=== PATIENT | female | born 1940 | race Caucasian/White ===

== ENCOUNTER → 2017-07-15 15:35 | Outpatient (CLI) | payer OTHER, SELFPAY ==
[2017-07-15 16:50] LABS: Basophils Percent Auto 0.5 % (0-2); Eosinophils Percent Auto 5.5 % (2-4); Hematocrit 29.1 % (36-46); Hemoglobin 9.6 g/dL (12.0-16.0); Lymphocytes Percent Auto 30.1 % (25-40); Mean Corpuscular Hemoglobin 27.9 PG (26-34); Mean Corpuscular Volume 84.4 fL (80-100); Monocytes Percent Auto 6.6 % (3-14); Neutrophils Absolute Auto 3300 /uL (3000-5900); Neutrophils Percent Auto 57.3 % (50-75); Platelet Count 403 X10^3/uL (150-400); Red Blood Cell Count 3.45 X10^6/uL (4.0-5.2); Red Cell Distribution Width 16.5 % (11.6-14.8); White Blood Cell Count 5.7 X10^3/uL (4.5-11.0)
[2017-07-15 16:53] LABS: Add Manual Diff / Slide Review SLIDE REVIEW
[2017-07-15 17:24] LABS: Poikilocytosis 1+; Schistocytes 1+
== END ==
PROVIDERS: PCP Family Medicine; Visit Provider Family Medicine
DX: K22.70 Barrett's esophagus without dysplasia (principal); K29.70 Gastritis, unspecified, without bleeding; D50.9 Iron deficiency anemia, unspecified
CPT/HCPCS: 36415; 85025

== ENCOUNTER 2017-07-28 07:01 | Day surgery (SDC) | payer OTHER, SELFPAY ==
[2017-07-28] VITALS (9 sets, daily range): BP systolic 100–122; BP diastolic 56–70; PULSE 58–67; RESP 15–16; TEMP 36.1–37; O2SAT 96–99; BMI 29.0
--- NOTE | 2017-07-28 | PATH_ITS ---
[facility] Accession Number: [id number] . 01 Material submitted: . PART A: ANTRUM PART B: GE JUNCTION . 01 Clinical history: . A: H. PYLORI . 02 Diagnosis: A. Designated Antrum, Biopsies: Gastric oxyntic mucosa with no diagnostic abnormality. No evidence of Helicobacter organisms on H/E stain. Negative for intestinal metaplasia, dysplasia or malignancy. . B. Gastroesophageal Junction, Biopsy: Squamocolumnar junctional mucosa with specialized intestinal metaplasia; please see comment. Negative for dysplasia or malignancy. MRV/07/29/2017 . 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 . 02 Electronically signed: . Rhett Givens MD, PhD, Pathologist NPI- [id number] . 01 Gross description: . Received are two formalin-filled containers, both labeled with the patient's name: . A. In a container labeled antrum biopsy, the specimen consists of a 0.2 cm portion of tissue, entirely submitted in cassette A. B. In a container labeled GE junction, the specimen consists of four less than 0.1 cm to 0.2 cm portions of tissue, entirely submitted in cassette B. ([id number]) /FRR . 02 Pathologist provided ICD-10: K22.70 . 02 CPT . 222560, 816740 Performed at: 01 [facility] [address] [facility], [place], [place] [id number] MD Salo Up MD Phone: [phone] Performed at: 02 [facility] [address] [place] [id number] MD Srikanth Nunez MD Phone: [phone]
--- NOTE | 2017-07-28 08:39 | PM.PREOP ---
Pre-operative Note Interval Note Pre-op Check: History & Physical Reviewed by Physician
[2017-07-28] MEDS: TETRACAINE/BENZOCAINE/BUTAMBEN (CETACAINE) BOTTLE 1 SPRAY TOP (08:45)
[2017-07-28] MEDS: LIDOCAINE 4% SOLN 50 ML 20 ML TOP (08:46)
--- NOTE | 2017-07-28 09:00 | PM.OP.1 ---
Operative Date/Time/Diagnoses - Date of procedure: 07/28/17 Time of procedure: 09:00 Pre-op diagnosis: Coppola's esophagus Chronic dysphagia Post-op diagnosis: same Procedure & Clinicians Procedure: Esophageal gastroduodenoscopy biopsy Same procedure as scheduled: Yes Indications: For history of Coppola's esophagus with chronic dysphagia. Surgeon: Sangeetha Estrada Click Yes if Unassisted: Yes Anesthesia Type: Sedation (Versed 4 mg and fentanyl 100 mcg) Operative Notes Findings: 1. Normal duodenum 2. Antral gastritis most pronounced in the pyloric channel 3. GE junction at 35 cm from the incisors with a 5 cm hiatal hernia 4. Ragged Z-line with islands of tissue consistent with Coppola's esophagus the Closure Type: not applicable Specimen(s): other (1. Cold forceps biopsy the antrum trauma 2. Cold forceps biopsies of the GE junction) Estimated Blood Loss (mL): 2 Procedure in detail: After obtaining informed consent, the patient was brought to the GI suite and placed in the left lateral decubitus position on the examination table. After placement of appropriate monitors, the patient was given incremental doses of Versed and Fentanyl until an appropriate level of sedation was achieved. A time out was held per SCOAP protocol. A bite block was gently placed between the patient's teeth. The endoscope was lubricated and then passed into the patient's posterior oropharynx. The esophagus was cannulated under direct vision and the scope was passed to the second portion of the duodenum without difficulty. The scope was then withdrawn with careful examination of all areas of the upper GI tract and mucosa. In the stomach, the instrument was retroflexed and the GE junction examined. The scope was straightened and the procedure continued with examination of the remainder of the upper GI tract. Findings are noted above. Air was aspirated from the stomach and the endoscope gently removed from the esophagus. The patient was allowed to awaken from sedation without difficulty and taken to the post-anesthesia care unit in good condition. Total sedation time 13 min Complications: none Condition: stable Disposition: PACU Plan for aftercare: 1. Discharge to home 2. We will contact you with results and recommendations as well as results of the pH probe and manometry study
[2017-07-28] MEDS: fentaNYL 250 MCG/5 ML INJ IV (09:03)
[2017-07-28] MEDS: MIDAZOLAM 5 MG/5 ML VIAL IV (09:03)
== END 2017-07-28 10:02 ==
LOC: ENDO 07:02
PROVIDERS: Family Provider Family Medicine; PCP Family Medicine; Visit Provider Surgery
PROC: 0DJ08ZZ Inspection of Upper Intestinal Tract, Via Natural or Artificial Opening Endoscopic (ICD-10-PCS; CPT 43235; principal; 2017-07-28 07:45)
DX: K22.719 Barrett's esophagus with dysplasia, unspecified (principal); D64.9 Anemia, unspecified; K29.70 Gastritis, unspecified, without bleeding; K44.9 Diaphragmatic hernia without obstruction or gangrene; I10 Essential (primary) hypertension; J45.909 Unspecified asthma, uncomplicated
CPT/HCPCS: 43239; 99152; J2250; J3010

== ENCOUNTER → 2018-04-21 14:40 | Outpatient (CLI) | payer OTHER, SELFPAY ==
--- NOTE | 2018-04-21 | DI.MG.S_ITS ---
UNILATERAL RIGHT DIGITAL SCREENING MAMMOGRAM 3D/2D WITH CAD POST MASTECTOMY: 04/21/2018 CLINICAL: Routine screening. Personal history of breast cancer. Family history of breast cancer. Comparison is made to exams dated: 03/16/2017 mammogram, 11/21/2014 mammogram, and 10/08/2013 mammogram - [facility]. The tissue of right breast is heterogeneously dense. This may lower the sensitivity of mammography. Current study was also evaluated with a Computer Aided Detection (CAD) system. There are benign vascular calcifications and calcifications in the right breast. No significant masses, calcifications, or other findings are seen in the breast. There has been no significant interval change. IMPRESSION: There is no mammographic evidence of malignancy. A 1 year screening mammogram is recommended. This exam was interpreted at Station ID: [id number]. NOTE: For mammograms, a report in lay terms will be sent to the patient. Approximately 15% of breast malignancies will not be visualized mammographically. In the management of a palpable breast mass, a negative mammogram must not discourage biopsy of a clinically suspicious lesion. Electronically Signed By: Braulio montez/florentin:04/21/2018 16:14:35 letter sent: Normal Exam ACR BI-RADS Category 2: Benign Finding(s) 3342F
== END ==
PROVIDERS: Family Provider Family Medicine; PCP Family Medicine; Visit Provider Family Medicine
DX: Z12.31 Encounter for screening mammogram for malignant neoplasm of breast (principal); Z85.3 Personal history of malignant neoplasm of breast; Z80.3 Family history of malignant neoplasm of breast
CPT/HCPCS: 77063; 77067

== ENCOUNTER → 2018-05-06 09:43 | Outpatient (CLI) | payer OTHER, SELFPAY ==
[2018-05-06 10:06] LABS: Add Manual Diff / Slide Review NO; Basophils Absolute Auto 100 /uL (0-100); Basophils Percent Auto 1.2 % (0-2); Eosinophils Absolute Auto 200 /uL (0-450); Eosinophils Percent Auto 3.5 % (2-4); Hematocrit 23.6 % (36-46); Hemoglobin 7.2 g/dL (12.0-16.0); Lymphocytes Absolute Auto 1200 /uL (1100-4500); Lymphocytes Percent Auto 18.1 % (25-40); Mean Corpuscular HGB Conc 30.3 % (30-36); Mean Corpuscular Hemoglobin 23.2 PG (26-34); Mean Corpuscular Volume 76.7 fL (80-100); Monocytes Absolute Auto 400 /uL (0-900); Monocytes Percent Auto 6.8 % (3-14); Neutrophils Absolute Auto 4500 /uL (1500-7000); Neutrophils Percent Auto 70.4 % (50-75); Platelet Count 400 X10^3/uL (150-400); Red Blood Cell Count 3.08 X10^6/uL (4.0-5.2); Red Cell Distribution Width 16.9 % (11.6-14.8); White Blood Cell Count 6.4 X10^3/uL (4.5-11.0)
[2018-05-06 10:19] LABS: Alanine Aminotransferase 24 IU/L (9-52); Albumin 3.9 g/dL (3.5-5.0); Albumin Globulin Ratio 1.2 (1.0-2.8); Alkaline Phosphatase 59 U/L (38-126); Aspartate Aminotransferase 18 IU/L (14-36); BUN Creatinine Ratio 12.5 (6-22); Bilirubin Total 0.3 mg/dL (0.2-1.3); Blood Urea Nitrogen 10 mg/dL (7-17); Calcium 8.6 mg/dL (8.4-10.2); Carbon Dioxide 25 mmol/L (22-32); Chloride 100 mmol/L (98-107); Cholesterol 146 mg/dL (140-199); Estimated Glomerular Filt Rate > 60.0 mL/min (>60); Globulin 3.2 g/dL (1.7-4.1); Glucose 88 mg/dL (80-110); HDL Cholesterol 40 mg/dL (40-60); HEMOLYSIS < 15 (0-50); LDL Cholesterol Calculated 85 mg/dL (<100); Potassium 4.3 mmol/L (3.4-5.1); Sodium 133 mmol/L (137-145); Total Protein 7.1 g/dL (6.3-8.2); Triglycerides 103 mg/dL (35-150)
[2018-05-06 10:34] LABS: Vitamin D 25 Hydroxy (D3) < 12.8 ng/mL (30.0-100.0)
[2018-05-06 10:52] LABS: Ferritin 10.3 ng/mL (11.1-264)
== END ==
PROVIDERS: PCP Family Medicine; Visit Provider Family Medicine
DX: D50.9 Iron deficiency anemia, unspecified (principal); I10 Essential (primary) hypertension; M85.80 Other specified disorders of bone density and structure, unspecified site
CPT/HCPCS: 36415; 80053; 80061; 82306; 82728; 85025

== ENCOUNTER → 2019-04-05 11:06 | Outpatient (CLI) | payer OTHER, SELFPAY ==
[2019-04-05 11:52] LABS: Add Manual Diff / Slide Review NO; Basophils Absolute Auto 200 /uL (0-100); Basophils Percent Auto 3.2 % (0-2); Eosinophils Absolute Auto 400 /uL (0-450); Eosinophils Percent Auto 7.2 % (2-4); Lymphocytes Absolute Auto 700 /uL (1100-4500); Lymphocytes Percent Auto 13.1 % (25-40); Mean Corpuscular HGB Conc 28.1 % (30-36); Mean Corpuscular Hemoglobin 19.1 PG (26-34); Mean Corpuscular Volume 67.8 fL (80-100); Monocytes Absolute Auto 500 /uL (0-900); Monocytes Percent Auto 8.5 % (3-14); Neutrophils Absolute Auto 3900 /uL (1500-7000); Platelet Count 408 X10^3/uL (150-400); Red Blood Cell Count 3.04 X10^6/uL (4.0-5.2); Red Cell Distribution Width 17.6 % (11.6-14.8); White Blood Cell Count 5.7 X10^3/uL (4.5-11.0)
[2019-04-05 12:05] LABS: Hematocrit 20.6 % (36-46); Hemoglobin 5.8 g/dL (12.0-16.0)
[2019-04-05 12:30] LABS: HEMOLYSIS < 15 (0-50); Iron 25 ug/dL (37-170)
[2019-04-05 12:31] LABS: Anisocytosis 2+; Hypochromasia 3+; Poikilocytosis 1+
[2019-04-05 12:35] LABS: Ferritin 6.8 ng/mL (11.1-264)
[2019-04-05 12:42] LABS: Percent Iron Saturation 6 % (15-50); Total Iron Binding Capacity 452 ug/dL (265-497); Transferrin 356 mg/dL (206-381)
[2019-04-05 12:49] LABS: Vitamin B12 419 pg/mL (239-931)
== END ==
PROVIDERS: PCP Family Medicine; Referring Provider Family Medicine; Visit Provider Family Medicine
DX: D50.9 Iron deficiency anemia, unspecified (principal)
CPT/HCPCS: 36415; 82607; 82728; 83540; 83550; 85025

== ENCOUNTER → 2019-04-19 16:11 | Outpatient (CLI) | payer OTHER, SELFPAY ==
[2019-04-19 17:08] LABS: Add Manual Diff / Slide Review NO; Basophils Absolute Auto 100 /uL (0-100); Basophils Percent Auto 1.5 % (0-2); Eosinophils Absolute Auto 400 /uL (0-450); Eosinophils Percent Auto 6.8 % (2-4); Hematocrit 23.5 % (36-46); Lymphocytes Absolute Auto 1200 /uL (1100-4500); Lymphocytes Percent Auto 22.7 % (25-40); Mean Corpuscular HGB Conc 29.1 % (30-36); Mean Corpuscular Hemoglobin 20.6 PG (26-34); Mean Corpuscular Volume 70.9 fL (80-100); Monocytes Absolute Auto 400 /uL (0-900); Monocytes Percent Auto 7.5 % (3-14); Neutrophils Absolute Auto 3200 /uL (1500-7000); Neutrophils Percent Auto 61.5 % (50-75); Platelet Count 464 X10^3/uL (150-400); Red Blood Cell Count 3.32 X10^6/uL (4.0-5.2); Red Cell Distribution Width 21.7 % (11.6-14.8); White Blood Cell Count 5.2 X10^3/uL (4.5-11.0)
[2019-04-19 17:31] LABS: Hemoglobin 6.8 g/dL (12.0-16.0)
[2019-04-19 18:54] LABS: Hypochromasia 3+; Poikilocytosis 1+
[2019-04-19 18:55] LABS: Acanthocytes 1+; Anisocytosis 2+
== END ==
PROVIDERS: PCP Family Medicine; Referring Provider Family Medicine; Visit Provider Family Medicine
DX: D50.9 Iron deficiency anemia, unspecified (principal)
CPT/HCPCS: 36415; 85025

== ENCOUNTER → 2019-05-02 09:49 | Outpatient (RCR) | payer OTHER, SELFPAY ==
[2019-04-06] MEDS: IRON SUCROSE 500 MG in SODIUM CHLORIDE 0.9% 100 ML 35.714 ML IV (13:25)
[2019-04-06 13:26] VITALS: BP 135/60; PULSE 69; RESP 16; TEMP 36.6
[2019-04-06 14:18] VITALS: BP 117/52; PULSE 74; RESP 16; TEMP 36.8; O2SAT 100
--- NOTE | 2019-04-06 16:37 | PC.NURSE ---
New IV to right forearm inserted. Left AC IV removed by [facility]. Scant swelling and quarter sized dark bruise present at LAC site. Pt aware to notify staff if new site becomes sore/painful/or puffy. Verbalizes understanding and using call light appropriately.
[2019-05-02 10:11] LABS: Add Manual Diff / Slide Review NO; Basophils Absolute Auto 100 /uL (0-100); Basophils Percent Auto 2.2 % (0-2); Eosinophils Absolute Auto 200 /uL (0-450); Eosinophils Percent Auto 4.5 % (2-4); Hematocrit 24.3 % (36-46); Lymphocytes Absolute Auto 1000 /uL (1100-4500); Lymphocytes Percent Auto 22.3 % (25-40); Mean Corpuscular HGB Conc 28.8 % (30-36); Mean Corpuscular Hemoglobin 20.6 PG (26-34); Mean Corpuscular Volume 71.7 fL (80-100); Monocytes Absolute Auto 300 /uL (0-900); Monocytes Percent Auto 7.9 % (3-14); Neutrophils Absolute Auto 2800 /uL (1500-7000); Neutrophils Percent Auto 63.1 % (50-75); Platelet Count 468 X10^3/uL (150-400); Red Blood Cell Count 3.39 X10^6/uL (4.0-5.2); Red Cell Distribution Width 20.8 % (11.6-14.8); White Blood Cell Count 4.4 X10^3/uL (4.5-11.0)
[2019-05-02 10:49] LABS: Anisocytosis 2+
[2019-05-02 10:50] LABS: Hypochromasia 3+; Poikilocytosis 1+
== END ==
LOC: INF 04-06 11:20
PROVIDERS: PCP Family Medicine; Referring Provider Family Medicine; Visit Provider Family Medicine
DX: D50.9 Iron deficiency anemia, unspecified (principal)
CPT/HCPCS: 36415; 85025; 96365; 96366; J1756

== ENCOUNTER → 2019-05-03 13:30 | Outpatient (CLI) | payer OTHER, SELFPAY ==
[2019-05-03 17:18] LABS: Occult Blood 1 Positive (Negative); Occult Blood 2 Positive (Negative)
[2019-05-03 17:19] LABS: Occult Blood 3 Positive (Negative)
== END ==
PROVIDERS: PCP Family Medicine; Referring Provider Family Medicine; Visit Provider Family Medicine
DX: D50.9 Iron deficiency anemia, unspecified (principal)
CPT/HCPCS: 82270

== ENCOUNTER → 2019-05-08 11:22 | Outpatient (CLI) | payer OTHER, SELFPAY ==
[2019-05-08 11:50] LABS: Add Manual Diff / Slide Review NO; Basophils Absolute Auto 100 /uL (0-100); Basophils Percent Auto 1.4 % (0-2); Eosinophils Absolute Auto 300 /uL (0-450); Eosinophils Percent Auto 5.2 % (2-4); Hematocrit 25.6 % (36-46); Hemoglobin 7.4 g/dL (12.0-16.0); Lymphocytes Absolute Auto 1100 /uL (1100-4500); Mean Corpuscular Hemoglobin 21.3 PG (26-34); Mean Corpuscular Volume 73.6 fL (80-100); Monocytes Absolute Auto 300 /uL (0-900); Monocytes Percent Auto 6.1 % (3-14); Neutrophils Absolute Auto 3900 /uL (1500-7000); Neutrophils Percent Auto 68.3 % (50-75); Platelet Count 430 X10^3/uL (150-400); Red Blood Cell Count 3.48 X10^6/uL (4.0-5.2); Red Cell Distribution Width 21.6 % (11.6-14.8); White Blood Cell Count 5.7 X10^3/uL (4.5-11.0)
[2019-05-08 12:03] LABS: Anisocytosis 2+; Poikilocytosis 1+
== END ==
PROVIDERS: PCP Family Medicine; Referring Provider Surgery; Visit Provider Surgery
DX: D50.9 Iron deficiency anemia, unspecified (principal); R63.4 Abnormal weight loss; K22.70 Barrett's esophagus without dysplasia; K29.70 Gastritis, unspecified, without bleeding; D64.9 Anemia, unspecified; Z80.0 Family history of malignant neoplasm of digestive organs
CPT/HCPCS: 36415; 85025; 99214

== ENCOUNTER 2019-05-11 10:58 | Inpatient (IN) | payer OTHER, SELFPAY ==
[2019-05-11] VITALS (13 sets, daily range): BP systolic 96–150; BP diastolic 44–74; PULSE 60–104; RESP 12–18; TEMP 36.2–37.1; O2SAT 95–100; BMI 25.6
--- NOTE | 2019-05-11 | PATH_ITS ---
[facility] Accession Number: [id number] . 01 Material submitted: . PART A: duodenum bulb - DUODENAL BULB BIOPSY PART B: gastrointestinal site - GASTRIC MUCOSA BIOPSY PART C: gastrointestinal site - GASTRIC POLYP BIOPSY PART D: esophagus - DISTAL ESOPHAGUS BIOPSY PART E: esophagus - MID ESOPHAGUS BIOPSY . 02 Diagnosis: A. Duodenum, Bulb, Biopsy: Duodenal mucosa with no diagnostic abnormality. Negative for active inflammation, features of sprue, dysplasia, or malignancy. . B. Stomach, Biopsy: Antral mucosa with no diagnostic abnormality. No evidence of Helicobacter on H/E stain. Negative for intestinal metaplasia. Negative for dysplasia and malignancy. . C. Stomach, Polyp, Biopsy: Gastric hyperplastic polyp. No evidence of Helicobacter on H/E stain. Negative for intestinal metaplasia. Negative for dysplasia and malignancy. . D. Distal Esophagus, Biopsy: Squamocolumnar junctional mucosa with specialized intestinal metaplasia, consistent with Coppola's esophagus. Negative for dysplasia and malignancy. . E. Mid Esophagus, Biopsy: Columnar mucosa with no diagnostic abnormality. Negative for intestinal metaplasia. Negative for dysplasia and malignancy. . . . . . . [facility] 05/14/2019 1238 Local . 02 Comment: B. An immunohistochemical stain for Helicobacter will be performed, and the results reported as an addendum. . 02 Electronically signed: . Carine Angel MD, Pathologist NPI- [id number] . 01 Gross description: . (A) Received in formalin, labeled duodenal bulb BX, are multiple fragments of cota tissue (0.4 x 0.3 x 0.1 cm in aggregate). Filtered and entirely submitted in cassette A1. (B) Received in formalin, labeled gastric mucosa BX, are multiple fragments of cota tissue (0.5 x 0.3 x 0.1 cm in aggregate). Filtered and entirely submitted in cassette B1. (C) Received in formalin, labeled gastric polyp BX, is a fragment of younger-white tissue (0.1 x 0.1 by less than 0.1 cm). Filtered and entirely submitted in cassette C1. (D) Received in formalin, labeled distal esophagus BX, is a fragment of younger-white tissue (0.2 x 0.2 by less than 0.1 cm). Filtered and entirely submitted in cassette D1. (E) Received in formalin, labeled mid esophagus BX, is a fragment of younger-white tissue (0.3 x 0.2 x 0.1 cm). Filtered and entirely submitted in cassette E1. (JM:[id number]) /MRV 05/13/2019 1911 Local . 02 Pathologist provided ICD-10: D64.9, K22.70 . 02 CPT . 738984, 001491, 888431, 463601, 571283, R13333 Performed at: 01 [facility] [address] [id number] MD Salo Up MD Phone: [phone] Performed at: 02 [facility] [address] [address] [place], [place] [id number] MD Carine Angel MD Phone: [phone]
--- NOTE | 2019-05-11 | DI.CT.S_ITS ---
PROCEDURE: CT CHEST ABD PEL W CON INDICATIONS: colon cancer, active bleeding TECHNIQUE: After the administration of oral and intravenous contrast, 5 mm thick sections acquired from the lung apices to the symphysis. 5 mm coronal and sagittal reformats were performed, with additional 7 mm coronal MIP reformats through the lungs. For radiation dose reduction, the following was used: automated exposure control, adjustment of mA and/or kV according to patient size. COMPARISON: None. FINDINGS: Image quality: Excellent. CHEST: Lungs and pleura: Biapical scarring is seen. Mild to moderate centrilobular emphysema is noted. There is a tiny groundglass opacity nodule in lateral aspect of right upper lobe series 3 image 87. 3 mm soft tissue density nodule in lateral and posterior aspect of right upper lobe series 3 image 104. Tiny one or 2 mm nodular density is also seen in anterior and lateral periphery of right upper lobe series 3 image 104. 2-3 mm sub-solid nodule is noted in lateral aspect of right upper lobe series 3 image 138. 4-5 mm nodular density anterolateral aspect of right lower lobe is seen series 3 image 203. 15 mm nodular density is also seen in anterior aspect of the right lower lobe near right lung base series 3 image 220 and 221. 4-5 mm soft tissue density nodule in left lingular segment near left lung base is seen series 3 image 221. Tiny 2-3 mm nodular density in posterior aspect of left lower lobe is seen series 3 image 228. Scarring/atelectasis in bilateral lung bases are seen. No pleural effusions or pneumothorax. Central and peripheral airways appear patent and normal in caliber. Mediastinum: Heart size is enlarged. No pericardial effusion. No mediastinal or hilar adenopathy by size criteria. Thoracic aorta and central pulmonary arteries are normal in size. Esophagus is normal in caliber. There is a small to moderate-sized hiatal hernia. Chest wall: No axillary or supraclavicular adenopathy by size criteria. Surgical clips are seen in left axilla with suggestion of prior left mastectomy. Thyroid gland is within normal limits. ABDOMEN: Solid organs: Liver is normal in size. 8mm hypodensity is noted in posterior aspect of right hepatic lobe which may represent a small cyst versus hemangioma. No other discrete hepatic lesion is seen. Stones and sludge material are seen in dependent portion of gallbladder lumen. No gross gallbladder wall thickening or pericholecystic fluid. Biliary system is non dilated. Pancreas enhances normally. Spleen is enlarged, no discrete splenic lesion. No adrenal nodules. Kidneys demonstrate normal size and enhancement, without hydronephrosis. Peritoneum and bowel: There is circumferential lobulated wall thickening and narrowing of the lumen involving 5 cm segment of a distal ascending colon near hepatic flexure with mild surrounding mesenteric fat stranding consistent with patient's colonoscopy finding of ascending colon mass. No other area of abnormal bowel wall thickening is seen. No free fluid of free air. Mild sigmoid diverticulosis is seen, no evidence of acute diverticulitis. Nodes and vessels: No retroperitoneal or mesenteric adenopathy by size criteria. Aorta and inferior vena cava are normal in size. Miscellaneous: No ventral hernias. PELVIS: Genitourinary: Bladder wall thickness is normal. Miscellaneous: No inguinal hernias or adenopathy. Subcentimeter lymph nodes are seen in bilateral inguinal region measures up to 8 mm in size. Calcified uterine fibroids are seen. Bones: No suspicious bony lesions. No vertebral body compression fractures. Sclerotic focus involving right posterior aspect of T5 vertebral body is seen most likely represent focal bone island. IMPRESSION: 1. Finding is suggestive of circumferential mass involving 5 cm segment of distal ascending colon near hepatic flexure with narrowing of the lumen and mild adjacent inflammatory changes. No other area of abnormal bowel wall thickening. No free fluid or free air. 2. Numerous tiny solid and part solid pulmonary nodules in bilateral lung orellana as described above, tiny pulmonary metastatic lung nodules cannot be excluded. Followup CT study in 6 month is recommended. 3. Biapical scarring. Bibasilar scarring/atelectasis. Airway is patent. 4. No gross lymphadenopathy is seen in chest, abdomen or pelvis by size criteria. Prior left mastectomy and surgical clips in left axilla. 5. 8mm hypodense area involving posterior segment of right hepatic lobe which could represent benign process such as hepatic cyst or hemangioma. A followup study is recommended. 6. Splenomegaly. No discrete splenic lesion. Cholelithiasis with no CT evidence of acute cholecystitis. Dictated by: Tono Pappas M.D. on 05/11/2019 at 16:30 Approved by: Tono Pappas M.D. on 05/11/2019 at 16:46
[2019-05-11 11:51] LABS: Add Manual Diff / Slide Review NO; Basophils Absolute Auto 100 /uL (0-100); Basophils Percent Auto 2.3 % (0-2); Eosinophils Absolute Auto 200 /uL (0-450); Eosinophils Percent Auto 4.4 % (2-4); Hematocrit 24.7 % (36-46); Hemoglobin 7.4 g/dL (12.0-16.0); Lymphocytes Absolute Auto 1200 /uL (1100-4500); Lymphocytes Percent Auto 26.7 % (25-40); Mean Corpuscular HGB Conc 29.8 % (30-36); Mean Corpuscular Hemoglobin 22.1 PG (26-34); Mean Corpuscular Volume 74.3 fL (80-100); Monocytes Absolute Auto 300 /uL (0-900); Monocytes Percent Auto 6.6 % (3-14); Neutrophils Absolute Auto 2600 /uL (1500-7000); Platelet Count 371 X10^3/uL (150-400); Red Blood Cell Count 3.33 X10^6/uL (4.0-5.2); White Blood Cell Count 4.3 X10^3/uL (4.5-11.0)
[2019-05-11] MEDS: SODIUM CHLORIDE 0.9% 1,000 ML 200 ML IV (11:54)
[2019-05-11 12:26] LABS: Poikilocytosis 1+
[2019-05-11 12:27] LABS: Anisocytosis 3+; Hypochromasia 2+
--- NOTE | 2019-05-11 13:17 | PM.PREOP ---
Pre-operative Note Interval Note History & Physical reviewed/Exam performed by Physician: Yes Changes to H&P: No H&P completed within 30 days and has changed as indicated here:: 1 unit of blood set up. Hgb 7.4 today and on 05/07.
--- NOTE | 2019-05-11 14:43 | PM.OP.ENDO ---
Operative Date/Time/Diagnoses Date of procedure: 05/11/19 Time of procedure: 14:43 Pre-op diagnosis: Anemia, weight loss Post-op diagnosis: other (gastritis, colon cancer) Procedure & Clinicians Study performed: EGD with cold forceps biopsies and diagnostic colonoscopy Same procedure as scheduled: Yes Indications: Anemia, weight loss Surgeon: Radha Gillette Procedure Notes SCOAP/Timeout: Performed Procedure in detail: The patient was brought to the room and placed in supine position. General anesthesia was induced the patient was intubated with an ET tube by Dr. Holguin. She was then turned into left lateral decubitus position with all bony prominences padded. A surgical time-out was performed. A bite block was placed to protect the patient's lips, teeth, and tongue. The gastroscope was then placed through the bite block and over the tongue, and into the esophagus without incident. A tubular view of the esophagus was maintained as the scope was advanced down the esophagus into the stomach. It was advanced through the stomach and through the pylorus into the bulb of the duodenum. It was then flexed and advanced around the C-loop into the 2nd part of the duodenum. No significant findings were seen, other than a little bit of low-grade duodenitis. Some biopsies were taken, and the scope was retracted out into the stomach. Some low-grade gastritis was seen, with a few erosions. Biopsies were taken of the gastric mucosa. In the body of the stomach some gastric polyps were seen. A biopsy was taken of 1 gastric polyp. They all appeared benign consistent with benign gastric polyps associated with PPIs. On retroflexion, I saw that the patient had really no hiatal hernia. The hiatus was snug around the gastroscope. I then straightened the scope and retracted it back into the esophagus. A few tongues of salmon mucosa were seen and extending 2-3 cm up into the esophagus. These were biopsied. These appear consistent with low-grade Coppola's esophagus. I retracted the scope out of the esophagus with a tubular view. About 18 cm there were some gastric inlet patches. I took a biopsy of this area. It appeared benign. The remainder of the esophagus appeared normal. A pull the scope out of the oropharynx and through the bite block. The patient tolerated this portion of procedure well. Attention was then turned to the colonoscopic exam. A rectal exam was performed revealing [no abnormalities]. The colonoscope was then introduced to the rectum and advanced to the cecum in the usual fashion. As I came around the hepatic flexure I found a large, circumferential, ulcerated mass. I believe this was at the cecum, but I could not get past it in order to confirm the ileocecal valve or any other landmarks. It may have been at the hepatic flexure or in the ascending colon. I tattooed the region around the mass in 3 locations right at the mass itself. It was bleeding somewhat, but stopped relatively easily after few seconds. I did not biopsy it because it was an obvious cancer, and I did not want to stir up more bleeding. The scope was then retracted while rotating side to side and examining each mucosal fold. [] At the conclusion of the procedure retroflexion was performed and [small grade 1-2 internal hemorrhoids without stigmata of bleeding were seen]. The scope was then withdrawn from the rectum the procedure was concluded. The patient tolerated the procedure well and was transferred to the PACU in stable condition. Scope withdrawal time: 12 Findings: Coppola's esophagus, gastritis (Mild), polyp (Gastric) and possible cancer (Obvious cancer in the right colon) Specimen(s): other (Biopsies of duodenal bulb, gastric mucosa, gastric polyp, distal esophagus, mid esophagus) Complications: none Impression: Low-grade gastritis and duodenitis, low-grade Coppola's esophagus, advanced colon cancer Post-procedure Recommendations: Other recommendation (I spoke to the patient's primary doctor. I recommended that we admit the patient, transfuse her, tune her up medically, and plan on operating on this once she is medically prepared, and we get a CT scan to evaluate for mets.) Plan for aftercare: Will speak to the patient when she is entirely awake, but I plan to admit her to the acute care unit in proceed as discussed above. Disposition: PACU
[2019-05-11 15:41] LABS: BUN Creatinine Ratio 13.6 (6-22); Blood Urea Nitrogen 11 mg/dL (7-17); Calcium 8.6 mg/dL (8.4-10.2); Carbon Dioxide 23 mmol/L (22-32); Chloride 105 mmol/L (98-107); Estimated Glomerular Filt Rate > 60.0 mL/min (>60); Glucose 103 mg/dL (80-110); HEMOLYSIS < 15 (0-50); Potassium 3.5 mmol/L (3.4-5.1); Sodium 135 mmol/L (137-145)
--- NOTE | 2019-05-11 16:49 | SUR.PHASEI ---
pt was admitted for low blood count and stat CT- CT done on way to room . pt trqansfer via wheelchair- report to angeline PAULSON
--- NOTE | 2019-05-11 17:47 | P.HP_ITS ---
History of Present Illness History of Present Illness Date Patient Seen: 05/11/19 Time Patient Seen: 17:48 Chief complaint: [id number] Narrative: This is a 78-year-old woman with history of acid reflux, Coppola's esophagus, personal history of colon polyps, history of breast cancer, and a recent history of worsening weakness, fatigue, shortness of breath and hemo globin of 6.8 -7.4 over the past few weeks. She has had about a 30 lb weight loss over the past year without any clear explanation. Today she had a colonoscopy and upper endoscopy. She was found to have low grade gastritis, and Coppola's esophagus, as well as a large, bleeding, nearly obstructing cancer in the right side of the colon. I discussed with the patient, her daughter Betsy (by phone) and Dr. Kerr (her primary doctor) regarding the appropriate management for this. Due to the severe anemia and high risk of obstruction I recommend we admit the patient, get a CT chest/abdomen/pelvis for staging, transfuse her, and go ahead to the OR in the AM tomorrow. ROS: Positive for fatigue, weight loss greater than 30 lb in a year, changes in vision, decreased exercise tolerance, shortness of breath, change in bowel habits, joint pain, dizziness, numbness, anxiety. Thirteen system review is otherwise negative other than as mentioned below and in HPI. PE: GENERAL: Alert, comfortable, pale. Appears stated age. Answers questions promptly and appropriately. Vital signs noted. HENT: Normocephalic, atraumatic. Hearing intact. Oral mucosa is pink and moist. EYES: Conjunctiva pink, sclera white, no periorbital swelling. CARDIOVASCULAR: Regular rate. No pedal edema. RESPIRATORY: Non-tachypneic, breathing comfortably on room air. GASTROINTESTINAL: Abdomen soft and non-distended GENITALURINARY: No flank tenderness. MUSCULOSKELETAL: Equal tone and mass bilaterally. SKIN: Warm, dry, soft, appropriate color for ethnicity. No other lesions, rashes, or wounds. NEURO: Alert and Oriented X 3. No gross sensory deficits, or cognitive issues. PSYCH: Appropriate affect and mood. 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) Colitis (Acute ~2009) Essential hypertension (Chronic 05/06/11) Family history of colon cancer (Acute) History of colitis (Acute ~2009) History of malignant neoplasm of left breast (2008) Iron deficiency anemia (07/30/15) Malignant neoplasm of skin of nose (02/15/14) Nontoxic uninodular goiter (Acute 02/15/14) Osteopenia (01/10/14) Surgical History History of cataract removal with insertion of prosthetic lens (05/11/11) History of cataract removal with insertion of prosthetic lens (04/27/11) History of esophagogastroduodenoscopy (EGD) (07/08/16) History of esophagogastroduodenoscopy (EGD) (Acute ~07/2017) History of mastectomy, subtotal (Acute ~2008) Status post breast biopsy (08/06/08) Status post breast lumpectomy (08/20/08) Status post colonoscopy (~08/2009) Status post colonoscopy (03/2015) Status post partial mastectomy (08/28/08) Family & Social History Family History Brother Heart disease Brother COPD (chronic obstructive pulmonary disease) Child Age: 50 Skin cancer Father CAD (coronary artery disease) Grandfather Stroke Mother Congestive heart failure Tobacco use disorder Sister Hypertension Social History: household members none Tobacco & Substance use: Smoking Status Former smoker alcohol intake former Substance Use Type does not use Meds Home Medications and Allergies Home Medications Medication Instructions Recorded Confirmed Type MULTIVITAMIN (#MULTIPLE VITAMINS) 1 cap PO Q DAY #0 05/07/11 05/11/19 History ferrous sulfate [Iron (ferrous 325 mg PO BID #60 tab 05/14/16 05/11/19 Rx sulfate)] Qvar 1 puff INH BID #1 inh 01/10/17 05/11/19 Rx albuterol sulfate 90 mcg/actuation 1 inhalation INHALATION Q3HP PRN 05/10/18 05/11/19 Rx aerosol inhaler #1 inhalation omeprazole 40 mg capsule,delayed 40 mg PO BID #180 cap 11/15/18 05/11/19 Rx release clonazepam 0.5 mg tablet 0.5 mg PO HSP PRN #30 tab 04/06/19 05/11/19 Rx propranolol 60 mg tablet 60 mg PO BID #60 tab 05/02/19 05/11/19 Rx Allergies Allergy/AdvReac Type Severity Reaction Status Date / Time No Known Drug Allergies Allergy Verified 05/08/19 10:32 Exam Vital Signs (past 8 hours): - 05/11/19 11:14 05/11/19 14:48 05/11/19 14:53 Temperature 98.8 F 98.1 F Pulse Rate 66 68 68 Respiratory Rate 15 17 15 Blood Pressure 138/66 96/58 L 130/62 Pulse Oximetry 99 96 95 05/11/19 14:57 05/11/19 15:02 05/11/19 16:48 Temperature 97.2 F L Pulse Rate 64 60 104 H Respiratory Rate 12 12 16 Blood Pressure 131/44 L 131/53 L 148/70 H Pulse Oximetry 96 97 100 05/11/19 17:13 Temperature 98 F Pulse Rate 66 Respiratory Rate 18 Blood Pressure 149/63 H Pulse Oximetry 100 Oxygen Delivery Method Room Air Oxygen Flow Rate [address] scan - abdomen: Radiologist's impression: PROCEDURE: CT CHEST ABD PEL W CON INDICATIONS: colon cancer, active bleeding TECHNIQUE: After the administration of oral and intravenous contrast, 5 mm thick sections acquired from the lung apices to the symphysis. 5 mm coronal and sagittal reformats were performed, with additional 7 mm coronal MIP reformats through the lungs. For radiation dose reduction, the following was used: automated exposure control, adjustment of mA and/or kV according to patient size. COMPARISON: None. FINDINGS: Image quality: Excellent. CHEST: Lungs and pleura: Biapical scarring is seen. Mild to moderate centrilobular emphysema is noted. There is a tiny groundglass opacity nodule in lateral aspect of right upper lobe series 3 image 87. 3 mm soft tissue density nodule in lateral and posterior aspect of right upper lobe series 3 image 104. Tiny one or 2 mm nodular density is also seen in anterior and lateral periphery of right upper lobe series 3 image 104. 2-3 mm sub-solid nodule is noted in lateral aspect of right upper lobe series 3 image 138. 4-5 mm nodular density anterolateral aspect of right lower lobe is seen series 3 image 203. 15 mm nodular density is also seen in anterior aspect of the right lower lobe near right lung base series 3 image 220 and 221. 4-5 mm soft tissue density nodule in left lingular segment near left lung base is seen series 3 image 221. Tiny 2-3 mm nodular density in posterior aspect of left lower lobe is seen series 3 image 228. Scarring/atelec tasis in bilateral lung bases are seen. No pleural effusions or pneumothorax. Central and peripheral airways appear patent and normal in caliber. Mediastinum: Heart size is enlarged. No pericardial effusion. No mediastinal or hilar adenopathy by size criteria. Thoracic aorta and central pulmonary arteries are normal in size. Esophagus is normal in caliber. There is a small to moderate-sized hiatal hernia. Chest wall: No axillary or supraclavicular adenopathy by size criteria. Zackary gical clips are seen in left axilla with suggestion of prior left mastectomy. Thyroid gland is within normal limits. ABDOMEN: Solid organs: Liver is normal in size. 8mm hypodensity is noted in posterior aspect of right hepatic lobe which may represent a small cyst versus hemangioma. No other discrete hepatic lesion is seen. Stones and sludge material are seen in dependent portion of gallbladder lumen. No gross gallbladder wall thickening or pericholecystic fluid. Biliary system is non dilated. Pancreas enhances normally. Spleen is enlarged, no discrete splenic lesion. No adrenal nodules. Kidneys demonstrate normal size and enhancement, without hydronephrosis. Peritoneum and bowel: There is circumferential lobulated wall thickening and narrowing of the lumen involving 5 cm segment of a distal ascending colon near hepatic flexure with mild surrounding mesenteric fat stranding consistent with patient's colonoscopy finding of ascending colon mass. No other area of abnormal bowel wall thickening is seen. No free fluid of free air. Mild sigmoid diverticulosis is seen, no evidence of acute diverticulitis. Nodes and vessels: No retroperitoneal or mesenteric adenopathy by size criteria. Aorta and inferior vena cava are normal in size. Miscellaneous: No ventral hernias. PELVIS: Genitourinary: Bladder wall thickness is normal. Miscellaneous: No inguinal hernias or adenopathy. Subcentimeter lymph nodes are seen in bilateral inguinal region measures up to 8 mm in size. Calcified uterine fibroids are seen. Bones: No suspicious bony lesions. No vertebral body compression fractures. Sclerotic focus involving right posterior aspect of T5 vertebral body is seen most likely represent focal bone island. IMPRESSION: 1. Finding is suggestive of circumferential mass involving 5 cm segment of distal ascending colon near hepatic flexure with narrowing of the lumen and mild adjacent inflammatory changes. No other area of abnormal bowel wall thickening. No free fluid or free air. 2. Numerous tiny solid and part solid pulmonary nodules in bilateral lung orellana as described above, tiny pulmonary metastatic lung nodules cannot be excluded. Followup CT study in 6 month is recommended. 3. Biapical scarring. Bibasilar scarring/atelectasis. Airway is patent. 4. No gross lymphadenopathy is seen in chest, abdomen or pelvis by size criteria. Prior left mastectomy and surgical clips in left axilla. 5. 8mm hypodense area involving posterior segment of right hepatic lobe which could represent benign process such as hepatic cyst or hemangioma. A followup study is recommended. 6. Splenomegaly. No discrete splenic lesion. Cholelithiasis with no CT evidence of acute cholecystitis. Dictated by: Tono Pappas M.D. on 05/11/2019 at 16:30 Approved by: Tono Pappas M.D. on 05/11/2019 at 16:46 Labs Result Diagrams: 05/11/19 11:35 05/11/19 15:26 Labs: Laboratory Results - last 24 hr 05/11/19 05/11/19 05/11/19 11:35 11:35 15:26 WBC 4.3 L RBC 3.33 L Hgb 7.4 L Hct 24.7 L MCV 74.3 L MCH 22.1 L MCHC 29.8 L RDW 24.0 H Plt Count 371 Neut % (Auto) 60.0 Lymph % (Auto) 26.7 [place] % (Auto) 6.6 Eos % (Auto) 4.4 H Baso % (Auto) 2.3 H Neut # (Auto) 2600 Lymph # (Auto) 1200 [place] # (Auto) 300 Eos # (Auto) 200 Baso # (Auto) 100 RBC Morphology See below Hypochromasia 2+ H Poikilocytosis 1+ H Anisocytosis 3+ H Sodium 135 L Potassium 3.5 Chloride 105 Carbon Dioxide 23 BUN 11 Creatinine 0.81 Estimated GFR > 60.0 BUN/Creatinine Ratio 13.6 Glucose 103 Calcium 8.6 Blood Type O Positive Antibody Screen Negative Crossmatch See Detail Assessment & Plan Assessment and plan (1) Colon cancer: Current visit: Yes Status: Acute (2) Symptomatic anemia: Current visit: No Status: Acute (3) Barretts esophagus: Current visit: No Status: Acute (4) Weight loss: Current visit: No Status: Acute (5) Essential hypertension: Current visit: No Status: Chronic Assessment & Plan narrative: This is a 78 yo woman with newly diagnosed colon cancer, and symptomatic anemia from bleeding colon mass. She had a diagnostic colonoscopy today, and is being admitted for transfusion and for definitive surgery. Plan: Clear liquid diet this PM NPO at midnight OR at 9AM tomorrow Transfuse 1 unit PRBC tonight Gentle IV fluids PO antibiotic (bowel prep) Hold DVT ppx Home meds Ambulate as tolerated AM labs Consent for laparoscopic, possible open right hemicolectomy Time Spent With Patient Time with patient: 15-24 minutes Quality VTE Deep Vein Thrombosis/Pulmonary Embolism Present on Admission: No
[2019-05-11] MEDS: NEOMYCIN 500 MG TABLET 1000 MG PO (19:12)
[2019-05-11] MEDS: ERYTHROMYCIN BASE 250 MG TABLET 1000 MG PO (19:12)
[2019-05-11] MEDS: SODIUM CHLORIDE 0.9% 1,000 ML 80 ML IV (19:16)
[2019-05-11] MEDS: FERROUS SULFATE 325 MG TABLET PO (21:24)
[2019-05-11] MEDS: PANTOPRAZOLE 40 MG TABLET PO (21:24)
[2019-05-11] MEDS: PROPRANOLOL 40 MG TABLET 60 MG PO (21:24)
--- NOTE | 2019-05-11 22:11 | P.CONS_ITS ---
History of Present Illness Consult details Date Patient Seen: 05/11/19 Time Patient Seen: 16:11 Chief complaint: [id number] Reason for consult: medical fitness for surgery Requesting provider: Radha Gillette Narrative: Patient is a 78 yo female with anxiety, hypertension and significant anemia from chronic blood loss from bleeding in her colon found on colonoscopy today. In April of 2018 her hgb was 7.2 and we saw her in clinic. At that visit She endorsed chronic fatigue and that she feels dizzy once every few months. No change in stools from intermittent diarrhea and dark stools from her iron. She takes her iron religiously, she has no GI distress or constipation. She endorses difficulty with swallowing solid foods 1-2 times a week, she drinks water and that fixes it. Denies aspiration or choking with meals. She does have history of slow upper GI bleed after chronic NSAID use a few year ago which recovered nicely with stopping the NSAIDs and adding iron. She had EGD (07/2017) at that time showing gastritis and barrretts esophagus. Her last colonoscopy was 2015 showing a tortuous colon but no polyps at that time. It does say that she does have a history of colitis which was evident on biopsy from 2009 colonoscopy. It was recommended at that visit that she return to Dr. Estrada for evaluation for EGD/colonoscopy. She wasn't seen again until March of this year when her hgb was found to be 5.8. I saw her in clinic. She tells me that she had been very busy taking care of her brother who is being treated for colon cancer. She was feeling fatigued and had lost about 30 pounds. She had responded well to iron infusion in the past so she had an infusion that afternoon with inprovement in her hgb. She was referred for EGD and colonoscopy which she had today. It took a while and her stool was found to be positive x 3. Meds Home Medications and Allergies Home Medications Medication Instructions Recorded Confirmed Type MULTIVITAMIN (#MULTIPLE VITAMINS) 1 cap PO Q DAY #0 05/07/11 05/11/19 History ferrous sulfate [Iron (ferrous 325 mg PO BID #60 tab 05/14/16 05/11/19 Rx sulfate)] Qvar 1 puff INH BID #1 inh 01/10/17 05/11/19 Rx albuterol sulfate 90 mcg/actuation 1 inhalation INHALATION Q3HP PRN 05/10/18 05/11/19 Rx aerosol inhaler #1 inhalation omeprazole 40 mg capsule,delayed 40 mg PO BID #180 cap 11/15/18 05/11/19 Rx release clonazepam 0.5 mg tablet 0.5 mg PO HSP PRN #30 tab 04/06/19 05/11/19 Rx propranolol 60 mg tablet 60 mg PO BID #60 tab 05/02/19 05/11/19 Rx Allergies Allergy/AdvReac Type Severity Reaction Status Date / Time No Known Drug Allergies Allergy Verified 05/08/19 10:32 Review of Systems Review of Systems ROS: Yes All systems reviewed with the patient and are negative except as otherwise documented Exam Vital Signs (past 8 hours): - 05/11/19 14:48 05/11/19 14:53 05/11/19 14:57 Temperature 98.1 F Pulse Rate 68 68 64 Respiratory Rate 17 15 12 Blood Pressure 96/58 L 130/62 131/44 L Pulse Oximetry 96 95 96 05/11/19 15:02 05/11/19 16:48 05/11/19 17:13 Temperature 97.2 F L 98 F Pulse Rate 60 104 H 66 Respiratory Rate 12 16 18 Blood Pressure 131/53 L 148/70 H 149/63 H Pulse Oximetry 97 100 100 05/11/19 17:44 05/11/19 18:29 05/11/19 18:32 Temperature 97.2 F L 97.9 F 97.9 F Pulse Rate 90 63 63 Respiratory Rate 17 17 18 Blood Pressure 111/68 139/74 139/74 Pulse Oximetry 99 97 05/11/19 18:50 05/11/19 20:44 Temperature 97.7 F Pulse Rate 64 63 Respiratory Rate 16 16 Blood Pressure 150/71 H Pulse Oximetry 98 Oxygen Delivery Method Room Air Oxygen Flow Rate 0 Const General: cooperative and well developed Nutritional Appearance: average body habitus and well nourished Orientation: alert, awake and oriented x3 Resp Effort & Inspection: normal respiratory effort and able to speak in complete sentences Auscultation: clear to auscultation bilaterally, no rales, no rhonchi and no wheezes Cardio Palpation: normal PMI Rate: regular rate Rhythm: regular rhythm Heart Sounds: S1 normal and S2 normal Pulses: brachial pulses present and dorsalis pedis present Extrem General: normal to inspection, no clubbing, cyanosis or edema and No pedal edema Objective Labs Result Diagrams: 05/11/19 11:35 05/11/19 15:26 Labs: Laboratory Results - last 24 hr 05/11/19 05/11/19 05/11/19 11:35 11:35 15:26 WBC 4.3 L RBC 3.33 L Hgb 7.4 L Hct 24.7 L MCV 74.3 L MCH 22.1 L MCHC 29.8 L RDW 24.0 H Plt Count 371 Neut % (Auto) 60.0 Lymph % (Auto) 26.7 [place] % (Auto) 6.6 Eos % (Auto) 4.4 H Baso % (Auto) 2.3 H Neut # (Auto) 2600 Lymph # (Auto) 1200 [place] # (Auto) 300 Eos # (Auto) 200 Baso # (Auto) 100 RBC Morphology See below Hypochromasia 2+ H Poikilocytosis 1+ H Anisocytosis 3+ H Sodium 135 L Potassium 3.5 Chloride 105 Carbon Dioxide 23 BUN 11 Creatinine 0.81 Estimated GFR > 60.0 BUN/Creatinine Ratio 13.6 Glucose 103 Calcium 8.6 Blood Type O Positive Antibody Screen Negative Crossmatch See Detail Assessment & Plan Assessment & Plan narrative: 78 yo female with most likely colon cancer with partially obstructing mass with possible mets to liver and lungs. Lesion in liver and lungs are very small. 1. Colon cancer? - Dr. Gillette will take her to surgery tomorrow. It has taken a while to get patient to have colonoscopy it is prudent to take care of this now. Agree with Dr. Gillette's plan. 2. Chronic blood loss anemia secondary to #1 above. This should improve after removal of the mass. She has had infusion of 1 gram of iron surcrose this month so will check current iron stores after surgery to determine if she needs any more. 3. Anxiety. has been using propranolol dual purpose for blood pressure and anxiety. Would continue this as well as bedtime clonazepam. 4. Asthma. Will monitor for symptoms. She had been using a controller medication in the past. Will stress incentive spirometry after surgery. Code status: full code DVT prophylaxis: SCD's for now given active bleeding.
--- NOTE | 2019-05-11 23:33 | PC.NURSE ---
Admit/evening Shift Note- Patient [id number] to room via wheelchair from PACU at 1650. Patient alert and oriented and able to make bneeds knwohn to staff. Admit questions done, medicatiobns reviewed, and physical assessment completed. No complaints of pain or discomfort. Patient tolerated clear liquid diet. ! unit PRBC 's administored as ordered. Patient tolerated without issues. Patient oriented to bed and bed controls, room, bathroom, lights, phone, menu, abnd call lipscomb/tv remote. safety measures in place. Patient agrees to call for assistance. call lipscomb and phone within reach. will continue to monitor.
[2019-05-12] VITALS (34 sets, daily range): BP systolic 115–145; BP diastolic 51–79; PULSE 63–92; RESP 8–24; TEMP 36.5–38; O2SAT 93–100; BMI 25.6
--- NOTE | 2019-05-12 | PATH_ITS ---
[facility] Accession Number: [id number] . 01 Material submitted: . body - EXTENDED RIGHT PAULINA COLECTOMY . 02 Diagnosis: Right Colon, Extended Right Hemicolectomy: Invasive adenocarcinoma; see cancer case summary. Appendix with no diagnostic abnormality. Portion of omentum with no evidence of carcinoma. . CANCER CASE SUMMARY - COLON AND RECTUM . PROCEDURE: Right hemicolectomy. . TUMOR SITE: Hepatic flexure. . TUMOR SIZE: 4.0 CM in greatest dimension. . MACROSCOPIC TUMOR PERFORATION: Not identified. . . HISTOLOGIC TYPE: Adenocarcinoma. . HISTOLOGIC GRADE: G2 - Moderately-differentiated. . TUMOR EXTENSION: Tumor invades through the muscularis propria into pericolorectal tissue. . MARGINS: All margins are uninvolved by invasive carcinoma, high-grade dysplasia, and low-grade dysplasia. . MARGINS EXAMINED: Proximal, distal, and mesenteric. . TREATMENT EFFECT: No known presurgical therapy. . LYMPHOVASCULAR INVASION: Not identified. . PERINEURAL INVASION: Not identified. . TUMOR DEPOSITS: Not identified. . REGIONAL LYMPH NODES: . Number of Lymph Nodes Involved: 0 . Number of Lymph Nodes Examined: 18 . PATHOLOGIC STAGE CLASSIFICATION (PTNM, AJCC 8th ed.) . Primary Tumor: pT3 . Regional Lymph Nodes: pN0 . ADDITIONAL PATHOLOGIC FINDINGS: None identified. [facility] 05/16/2019 1428 Local . 02 Comment: Immunohistochemical stains for DNA mismatch repair proteins are pending, and results will be issued in an addendum. . 02 Electronically signed: . Rhett Givens MD, PhD, Pathologist NPI- [id number] . 01 Gross description: . Received in formalin, labeled extended right hemicolectomy, is a partially opened colon segment, which includes terminal ileum (length-3.0 cm, proximal diameter-1.8 cm), ileocecal valve, cecum and ascending colon (length-26.6 cm, distal diameter-2.7 cm), attached appendix (length-7.2 cm, diameter-0.4 cm), attached mesentery (up to 8.5 cm in depth), and attached omentum (15.5 x 8.5 x 0.5 cm). The resection margins are received stapled. The serosa is younger-cota smooth and shiny. The mucosa is cota and stained green with normal and focally distorted folds. A cota-white firm circumferential mass (4.0 x 3.8 x 1.4 cm) is located 12.2 cm from the proximal, 10.3 cm from the distal, and 3.5 cm from the radial resection margins. The mass is 0.2 cm from apparent serosa. The mass extends through the wall and into the mesentery. It does not appear to have extended or seeded in the omentum. Multiple possible lymph nodes (0.1 cm-0.7 cm) are noted. The appendix is unremarkable. No other nodules, masses, or lesions are identified. The resection margins are inked blue, and the serosa and possible serosa are inked green. Section code: (A1) proximal resection margin, customer development representative longitudinal section; (A2) distal resection margin, longitudinal customer development representative section; (A3) radial resection margin, customer development representative; (A4) mass with apparent serosa, customer development representative serial section; (A5, A6) customer development representative serial sections between proximal resection margin and mass, submitted proximal to distal; (A7-A11) mass, customer development representative serial section; (A12, A13) customer development representative serial sections between the mass and distal resection margin, submitted proximal to distal; (A14-A17) omentum, customer development representative; (A18) appendix, customer development representative; (A19-A22) multiple intact lymph nodes. ([id number]) /[facility] 05/16/2019 1238 Local . 02 Pathologist provided ICD-10: C18.3 . 02 CPT . 312538, [id number], [id number] Performed at: 01 [facility] [address] [place] [address], [place], [place] [id number] MD Salo Up MD Phone: [phone] Performed at: 02 [facility] [id number] [place] [id number] MD Carine Angel MD Phone: [phone]
[2019-05-12 05:11] LABS: Add Manual Diff / Slide Review NO; Basophils Absolute Auto 100 /uL (0-100); Basophils Percent Auto 1.2 % (0-2); Eosinophils Absolute Auto 200 /uL (0-450); Lymphocytes Absolute Auto 1000 /uL (1100-4500); Lymphocytes Percent Auto 22.4 % (25-40); Mean Corpuscular HGB Conc 29.7 % (30-36); Mean Corpuscular Hemoglobin 22.1 PG (26-34); Mean Corpuscular Volume 74.5 fL (80-100); Monocytes Absolute Auto 300 /uL (0-900); Monocytes Percent Auto 7.4 % (3-14); Neutrophils Absolute Auto 2900 /uL (1500-7000); Platelet Count 275 X10^3/uL (150-400); Red Blood Cell Count 3.18 X10^6/uL (4.0-5.2); Red Cell Distribution Width 22.3 % (11.6-14.8); White Blood Cell Count 4.4 X10^3/uL (4.5-11.0)
[2019-05-12 05:16] LABS: Hematocrit 23.7 % (36-46)
[2019-05-12 05:22] LABS: BUN Creatinine Ratio 9.9 (6-22); Blood Urea Nitrogen 8 mg/dL (7-17); Calcium 8.3 mg/dL (8.4-10.2); Carbon Dioxide 22 mmol/L (22-32); Chloride 107 mmol/L (98-107); Estimated Glomerular Filt Rate > 60.0 mL/min (>60); Glucose 86 mg/dL (80-110); HEMOLYSIS < 15 (0-50); Magnesium 1.9 mg/dL (1.6-2.3); Potassium 3.8 mmol/L (3.4-5.1); Sodium 136 mmol/L (137-145)
[2019-05-12 05:30] LABS: Anisocytosis 3+; Hypochromasia 2+; Poikilocytosis 1+
[2019-05-12 07:32] LABS: Carcinoembryonic Antigen 0.6 ng/mL (0.1-3.0)
[2019-05-12] MEDS: PROPRANOLOL 40 MG TABLET 60 MG PO ×2 (08:35→21:43)
--- NOTE | 2019-05-12 08:39 | PC.NURSE ---
Rec'd pt sitting up in bed. AAO x3 and making needs known. Assisted to BR with SBA and no AD. Pt has steady gait. Denies dizziness/lightheadedness with ambulation. States she feels much improved with energy level after receiving PRBCs. Pt was partially incontinent of stool which is noted to be soft/brown. Plan is for pt to received PRBCs prior to OR today. PRBCs started. Pt tolerating well. Bedside report given to CRM ANALYST and pt was taken in bed to OR at 0838 with blood infusing.
[2019-05-12] MEDS: LACTATED RINGERS 1,000 ML 42 ML IV (09:00)
[2019-05-12] MEDS: PIPERACILLIN-TAZO 3.375 GM/50 ML FROZ.PIGGY IV (09:11)
--- NOTE | 2019-05-12 09:22 | CM.DANOTE ---
Patient is a 78 year old female who was admitted on 05/11/19 after EGD/Colonoscopy outpt and Malignant neoplasm found and requiring further surgery. Pt has [facility] for insurance and her PCP is Dr. Vesta Kerr. EMR was reviewed. Per MD, pt agreeable with surgical intervention for new colon cancer/mass. Per RN, pt off floor this morning at 0830 down to OR for surgery. Plan: SW to follow later today after surgical intervention for bedside assessment and d/c planning pending how pt tolerates surgical intervention. ANA Burt Discharge Planning/Care Management Advanced directive,confirm from FACILITY Start: 05/11/19 19:10 Freq: Q24H Status: Active Protocol: Document 05/11/19 19:10 AGW (Rec: 05/11/19 19:35 AGW [id number]) Advance Directive, confirm on record Time 19:00 Person contacted patient Copy received No CM Discharge Assessment Start: 05/12/19 09:16 Freq: Status: Active Protocol: Document 05/12/19 09:16 BF (Rec: 05/12/19 09:22 BF [id number]) Discharge Planning Assessment Assigned Rehab Manager ANA Trotter Advance Directives? No Advance Directives on File No History Provided By Patient,Medical Record Has Patient been admitted in last 30 No days? Prior Living Arrangements House Household Members none Type of transporation used prior to Drives own vehicle admit Independent with ADL's Yes Is patient alert and oriented? Yes Caregiver for Another Yes: has been helping her brother Patient/Family Preference Home with Home Health Comment Waiting to see how pt tolerates surgery and identified d/c needs Barriers to Discharge No Discharge Plan Home with Home Health Transportation Arrangement Family can likely provide transport at d/c if pt safe for home Additional Comment Waiting to see how pt tolerates surgery Review Status In Process Please Provide Date Initial DC 05/12/19 Assessment Was Performed Next Review Type Continued Stay Review
--- NOTE | 2019-05-12 10:01 | SUR.OPER ---
Lithotomy on padded OR bed. Head on pillow, arms padded and tucked at sides. Legs secured in padded yellow fins stirrups.
[2019-05-12] MEDS: BUPIVACAINE 0.25% W/ EPI 30 ML VIAL INJ (10:15)
[2019-05-12] MEDS: ACETAMINOPHEN IV 1,000 MG/100 ML VIAL 400 MG IV (11:42)
[2019-05-12] MEDS: BUPIVACAINE LIPOSOME 266 MG/20 ML VIAL INJ (12:02)
--- NOTE | 2019-05-12 12:46 | PM.OP.1 ---
Operative Date/Time/Diagnoses Date of procedure: 05/12/19 Time of procedure: 12:47 Pre-op diagnosis: colon cancer Post-op diagnosis: same Procedure & Clinicians Procedure: Laparoscopic extended right hemicolectomy Same procedure as scheduled: Yes Indications: Bleeding colon cancer with severe anemia and partial obstruction of colon Surgeon: Radha Gillette Click Yes if Unassisted: Yes Anesthesia Type: General Operative Notes Findings: Hard mass at the tattooed location in the hepatic flexure, no apparent involvement of other structures. Specimen(s): other (extended right hemicolectomy) Estimated Blood Loss (mL): 50 Blood products transfused: packed red blood cells (2 units given bc hgb 7.0 this AM after receiving a unit for 7.4 last PM, and expected losses with specimen) Procedure in detail: The patient was brought into the operating room and placed supine on the OR table. Sequential compression devices were placed on both legs and turned on. Appropriate perioperative antibiotics were given prior to the start of surgery. General anesthesia was induced the patient was intubated. A martinez catheter was placed in sterile fashion. The patient was positioned in low lithotomy, modified Mars Gillis position with both arms tucked. The abdomen was prepped and draped in sterile fashion. Surgical time-out was conducted. Local anesthetic was injected under the skin just superior to the umbilicus and a 5 mm vertical incision was made at this site. The umbilical stalk was grasped with a Magnolia and elevated. A Veress needle was passed through the fascia into proper position. The position was tested with a saline drop test which was appropriate for intra-abdominal Veress needle placement. The abdomen was then insufflated in the usual fashion. Once insufflated to 15 mm Hg the Veress needle was removed and a 5 mm optical trocar was placed under direct vision using a 5 mm 30 degree scope. Once the camera was inside the abdomen I took a look around. There was no injury from port placement. Two additional ports were placed in a similar fashion in the left upper quadrant and the supra pubic position. An additional port was placed in the right mid abdomen. The tattoo was seen at the hepatic flexure. Dissection was begun along the gastrocolic ligament from the mid transverse colon laterally toward the hepatic flexure. The colon was mobilized toward the flexure. The colon was adherent to the liver and gall bladder. A hand port was placed to assist with dissection. Local anesthetic was injected in the skin, and a 7cm incision was made with a 15 blade in the epigastric midline. Dissection was carried down to the fascia. Once the fascia was open a Gelport handport was placed. I was able to use my hand to complete the dissection of the hepatic flexure. and so attention was then turned to the right lateral gutter and I began taking down the white line of Toldt using [place] Ligasure. The ascending colon was mobilized up to the flexure. The colon was rotated medially until the C loop of the duodenum, the kidney, ureter and cava were seen. Once the dissection was completed, and colon and ileum were mobilized, I brought the entire right colon up through the hand port. The mass was palpable at the tattooed area of colon. I ensured proper locations for division of the bowel for proper oncologic dissection. I then divided the mesentery using Ligasure, as well as double ties with 2-0 silk on the ileocolic artery and vein. Branches to the ileum were preserved with palpable arterial pulse going to the ileum. I then divided the bowel using a 75mm blue load BETY stapler, just proximal to the ileocecal valve and 10cm distal to the hepatic flexure. Good arterial supply was palpated going to the remaining colon and ileum. Side by side stapled anastomosis was made using BETY blue load stapler. The ends were then oversewn using running 3-0 PDS and then 3-0 silk lembert sutures over that. I covered the staple lines with pericolic fat and sutured it down with 3-0 silk Lemberts. The anastomosis was then tested by occluding the ileum and intraluminal gas was squeezed across the anastomosis from the transverse colon with no bubbling coming from the anastomosis, indicating a negative leak test. The bowel was then placed back inside, and the Gelport lid was placed back on. The abdomen was reinsufflated. The anastomosis was in good position. I took another look at the retroperitoneal dissection wound bed, and it was somewhat oozy. There were no obvious bleeders, but diffuse capillary oozing was seen. I held a lap pad on the area, and then irrigated and suctioned it clean. There was no ongoing bleeding, but it was a bit more oozy than I would normally expect. So I decided to leave a drain there in case bleeding starts up again. A 19 round kian drain was placed through the right side 5mm port site and secured in place with 3-0 Nylon. The fascial incision and port sites were then injected with an additional 30mL of 0.25% Marcaine with epinephrine. An additional 20mL of Exparel was injected into the peritoneum and fascia. I then closed the fascia with running 0 Prolene, and closed the skin with skin doug. The remaining 5mm port sites were closed with Monocryl. The hand port incision and the drain site were dressed with 4x4's and tape, with bandaids on the port sites. This concluded the procedure. At this point the needle sponge and instrument counts were correct. The colon was opened on the back table and the entire cancer with adequate margin was seen. The specimen passed off the table for pathology. Patient was awakened from anesthesia and extubated. She was transferred to the postanesthesia care unit in stable condition. Complications: none Post-operative Condition: stable Disposition: PACU
--- NOTE | 2019-05-12 12:50 | PM.PN.1 ---
Subjective Subjective Date Patient Seen: 05/12/19 Time Patient Seen: 08:43 Interval history: Saw patient briefly prior to her surgery. She is a little nervous but ready to proceed. No complaints at this time. Exam Vital Signs (past 8 hours): - 05/12/19 05:10 05/12/19 08:14 05/12/19 08:31 Temperature 97.7 F 98.8 F 99.1 F Pulse Rate 81 72 63 Respiratory Rate 16 16 16 Blood Pressure 127/67 127/54 L 122/54 L Pulse Oximetry 93 05/12/19 08:45 Temperature 99.4 F Pulse Rate 77 Respiratory Rate 16 Blood Pressure 124/57 L Pulse Oximetry 96 Oxygen Delivery Method Room Air Oxygen Flow Rate 0 Const General: cooperative and comfortable Orientation: alert Skin General: warm and other (pink) Psych Appearance: grossly normal and well kempt Mental Status: mental status grossly normal Speech and Movement: speech and movement normal Mood: congruent mood Attitude: cooperative Objective Labs Result Diagrams: 05/12/19 04:57 05/12/19 04:57 Labs: Laboratory Results - last 24 hr 05/11/19 05/11/19 05/12/19 11:35 15:26 04:57 WBC 4.4 L RBC 3.18 L Hgb 7.0 L Hct 23.7 L MCV 74.5 L MCH 22.1 L MCHC 29.7 L RDW 22.3 H Plt Count 275 Neut % (Auto) 65.0 Lymph % (Auto) 22.4 L [place] % (Auto) 7.4 Eos % (Auto) 4.0 Baso % (Auto) 1.2 Neut # (Auto) 2900 Lymph # (Auto) 1000 L [place] # (Auto) 300 Eos # (Auto) 200 Baso # (Auto) 100 RBC Morphology See below Hypochromasia 2+ H Poikilocytosis 1+ H Anisocytosis 3+ H Sodium 135 L Potassium 3.5 Chloride 105 Carbon Dioxide 23 BUN 11 Creatinine 0.81 Estimated GFR > 60.0 BUN/Creatinine Ratio 13.6 Glucose 103 Calcium 8.6 Magnesium Carcinoembryonic Ag Blood Type O Positive Antibody Screen Negative Crossmatch See Detail 05/12/19 05/12/19 04:57 04:57 WBC RBC Hgb Hct MCV MCH MCHC RDW Plt Count Neut % (Auto) Lymph % (Auto) [place] % (Auto) Eos % (Auto) Baso % (Auto) Neut # (Auto) Lymph # (Auto) [place] # (Auto) Eos # (Auto) Baso # (Auto) RBC Morphology Hypochromasia Poikilocytosis Anisocytosis Sodium 136 L Potassium 3.8 Chloride 107 Carbon Dioxide 22 BUN 8 Creatinine 0.81 Estimated GFR > 60.0 BUN/Creatinine Ratio 9.9 Glucose 86 Calcium 8.3 L Magnesium 1.9 Carcinoembryonic Ag 0.6 Blood Type Antibody Screen Crossmatch Assessment & Plan Assessment & Plan narrative: Wish her the best with the surgery. Will follow along. Quality VTE Deep Vein Thrombosis/Pulmonary Embolism Present on Admission: No
--- NOTE | 2019-05-12 13:16 | SUR.PHASEI ---
Pt brought to PACU with oral airway and nasal trumpet in mouth. On nasal cannula 02. Lab called to draw CBC and PT.
[2019-05-12 13:42] LABS: Add Manual Diff / Slide Review NO; Basophils Absolute Auto 100 /uL (0-100); Eosinophils Absolute Auto 0 /uL (0-450); Eosinophils Percent Auto 0.1 % (2-4); Hematocrit 34.4 % (36-46); Hemoglobin 10.3 g/dL (12.0-16.0); Lymphocytes Absolute Auto 400 /uL (1100-4500); Lymphocytes Percent Auto 3.8 % (25-40); Mean Corpuscular HGB Conc 30.1 % (30-36); Mean Corpuscular Hemoglobin 23.8 PG (26-34); Mean Corpuscular Volume 79.1 fL (80-100); Monocytes Absolute Auto 0 /uL (0-900); Monocytes Percent Auto 0.5 % (3-14); Neutrophils Absolute Auto 8900 /uL (1500-7000); Neutrophils Percent Auto 94.6 % (50-75); Platelet Count 292 X10^3/uL (150-400); Red Blood Cell Count 4.34 X10^6/uL (4.0-5.2); Red Cell Distribution Width 22.9 % (11.6-14.8); White Blood Cell Count 9.4 X10^3/uL (4.5-11.0)
--- NOTE | 2019-05-12 13:43 | SUR.PHASEI ---
Pt still not reponding, airway remains patent with oral and nasal airway in, pupils pinpoint and equal
[2019-05-12 13:50] LABS: INR 1.1 (0.9-1.3); Prothrombin Time 12.1 SECONDS (10.1-12.7)
[2019-05-12] MEDS: ONDANSETRON 4 MG/2 ML INJ IV (14:04)
--- NOTE | 2019-05-12 14:11 | SUR.PHASEI ---
Dr. Holguin checked on pt, pt having periods of apnea when falls asleep. No new orders will keep monitoring.
[2019-05-12 14:19] LABS: Anisocytosis 3+
[2019-05-12 14:20] LABS: Acanthocytes 1+; Microcytosis 1+
--- NOTE | 2019-05-12 14:27 | SUR.PHASEI ---
Pt more awake, c/o nausea medicated with ondansetron, nausea resolved and she is taking ice chips.
--- NOTE | 2019-05-12 14:28 | SUR.PHASEI ---
Report called to LORENE Reed, will transfer pt when more awake.
[2019-05-12] MEDS: HYDROMORPHONE 2 MG INJ IV ×3 (15:00→15:30)
--- NOTE | 2019-05-12 15:21 | SUR.PHASEI ---
Pt now more awake and c/o pain, medicated with dilaudid.
--- NOTE | 2019-05-12 16:10 | SUR.PHASEI ---
Report attempted, RN unavailable Nas RN and [facility] transport pt, face to face report with updated information.
[2019-05-12] MEDS: ACETAMINOPHEN 325 MG TABLET 650 MG PO (17:18)
[2019-05-12] MEDS: OXYCODONE IR 5 MG TABLET PO ×2 (17:18→21:43)
[2019-05-12] MEDS: FERROUS SULFATE 325 MG TABLET PO (21:42)
[2019-05-12] MEDS: PANTOPRAZOLE 40 MG TABLET PO (21:42)
[2019-05-13] VITALS (8 sets, daily range): BP systolic 128–140; BP diastolic 46–90; PULSE 58–77; RESP 14–18; TEMP 36.3–38.2; O2SAT 92–98
[2019-05-13] MEDS: ONDANSETRON 4 MG/2 ML INJ IV ×2 (00:25→03:30)
[2019-05-13] MEDS: ACETAMINOPHEN 325 MG TABLET 650 MG PO ×4 (00:48→19:40)
[2019-05-13] MEDS: OXYCODONE IR 5 MG TABLET PO ×3 (00:48→12:45)
[2019-05-13] MEDS: HYDROMORPHONE 0.5 MG INJ IV (03:29)
[2019-05-13 05:20] LABS: Add Manual Diff / Slide Review NO; Basophils Absolute Auto 100 /uL (0-100); Basophils Percent Auto 0.7 % (0-2); Eosinophils Absolute Auto 0 /uL (0-450); Hematocrit 29.5 % (36-46); Hemoglobin 9.1 g/dL (12.0-16.0); Lymphocytes Absolute Auto 1000 /uL (1100-4500); Lymphocytes Percent Auto 9.5 % (25-40); Mean Corpuscular Hemoglobin 23.9 PG (26-34); Mean Corpuscular Volume 77.2 fL (80-100); Monocytes Absolute Auto 800 /uL (0-900); Monocytes Percent Auto 7.9 % (3-14); Neutrophils Absolute Auto 8300 /uL (1500-7000); Neutrophils Percent Auto 81.9 % (50-75); Platelet Count 252 X10^3/uL (150-400); Red Blood Cell Count 3.82 X10^6/uL (4.0-5.2); Red Cell Distribution Width 23.1 % (11.6-14.8); White Blood Cell Count 10.2 X10^3/uL (4.5-11.0)
[2019-05-13 05:30] LABS: BUN Creatinine Ratio 11.3 (6-22); Blood Urea Nitrogen 8 mg/dL (7-17); Calcium 8.6 mg/dL (8.4-10.2); Carbon Dioxide 24 mmol/L (22-32); Chloride 102 mmol/L (98-107); Estimated Glomerular Filt Rate > 60.0 mL/min (>60); Glucose 109 mg/dL (80-110); HEMOLYSIS < 15 (0-50); Magnesium 1.8 mg/dL (1.6-2.3); Potassium 3.7 mmol/L (3.4-5.1); Sodium 132 mmol/L (137-145)
[2019-05-13 05:41] LABS: Hypochromasia 1+
[2019-05-13 05:42] LABS: Anisocytosis 2+; Poikilocytosis 1+
--- NOTE | 2019-05-13 05:49 | PC.NURSE ---
AxOx2, self and place, cannot answer date and is forgetful. Patient trails off on sentences and had removed her gown and abdominal binder at the start of shift. Incision covered with gauze and hypafix tape, serosang drainage mainly from around drain site. Reinforced dressing with gauze and hypafix dressing. Drain bulb compressed, serosang drainage. Patient c/o nausea, had emesis after turning to adjust abdominal binder and linen, 50ml emesis. Medicated per MAR for N/V. Patient able to move self in bed, currently on rest due to surgery. Continued to remove binder and pick at dressings around wound, reeducated to leave dressings alone. Reinforced dressing a second time and reapplied binder more to protect surgical site.
[2019-05-13] MEDS: MAGNESIUM SULFATE 2 GM/50 ML PIGGYBACK IV (06:00)
[2019-05-13] MEDS: KCL 40 MEQ IN NS 1,000 ML 80 MEQ IV ×2 (06:02→19:30)
[2019-05-13] MEDS: SODIUM CHLORIDE 0.9% FLUSH 10 ML IV ×3 (06:06→20:57)
[2019-05-13] MEDS: FERROUS SULFATE 325 MG TABLET PO ×2 (08:29→20:52)
[2019-05-13] MEDS: PANTOPRAZOLE 40 MG TABLET PO ×2 (08:29→20:53)
[2019-05-13] MEDS: HEPARIN 5,000 UNIT/ML VIAL 5000 UNIT SUBCUT ×2 (08:29→20:52)
--- NOTE | 2019-05-13 09:08 | CM.DPC ---
Addendum entered by Ankita Winchester R.N. 05/13/19 13:57: Porfirio/Candice met with patient at the bedside and discussed D/C plan. Patient stated she wants to D/c home her plan is to have her daughter stay with her for a little while at D/C to help her with her recovery. Plan is still for patient to be here for a day or two more and D/C home at that time. Ankita Winchester RN Original Note: DCP Assessment: EMR reviewed: PORFIRIO/Candice spoke with Dr. Kerr today who is following patient along with Dr. Gillette. Dr. Kerr stated she will be here a few more days for recovery and will most likely D/C home with family when medically stable. PORFIRIO/RN will meet with patient later today and get D/C plan finalized for when patient is D/C. Ankita Winchester RN
--- NOTE | 2019-05-13 10:58 | P.PN_ITS ---
Subjective Subjective Date Patient Seen: 05/13/19 Time Patient Seen: 10:58 Interval history: Mild nausea overnight spit up no emesis. Pain well controlled. Exam Vital Signs (past 8 hours): - 05/13/19 03:19 05/13/19 07:25 Temperature 97.8 F 98.0 F Pulse Rate 77 74 Respiratory Rate 16 14 Blood Pressure 135/50 L 128/58 L Pulse Oximetry 96 98 Oxygen Delivery Method Room Air Oxygen Flow Rate 0 Narrative Exam Narrative: General adult female alert oriented no acute distress Chest nonlabored respirations Abdomen soft appropriately tender to palpation. Drain serosanguineous output. Incision clean dry intact with doug changed dressing Extremities warm well perfused Objective Labs Result Diagrams: 05/13/19 05:09 05/13/19 05:09 Labs: Laboratory Results - last 24 hr 05/11/19 05/12/19 05/12/19 11:35 13:28 13:28 WBC 9.4 D RBC 4.34 Hgb 10.3 L Hct 34.4 L MCV 79.1 L D MCH 23.8 L MCHC 30.1 RDW 22.9 H Plt Count 292 Neut % (Auto) 94.6 H D Lymph % (Auto) 3.8 L [place] % (Auto) 0.5 L Eos % (Auto) 0.1 L Baso % (Auto) 1.0 Neut # (Auto) 8900 H Lymph # (Auto) 400 L [place] # (Auto) 0 Eos # (Auto) 0 Baso # (Auto) 100 RBC Morphology See below Hypochromasia Poikilocytosis Anisocytosis 3+ H Microcytosis 1+ H Acanthocytes (Spur) 1+ H PT 12.1 INR 1.1 Sodium Potassium Chloride Carbon Dioxide BUN Creatinine Estimated GFR BUN/Creatinine Ratio Glucose Calcium Magnesium Blood Type O Positive Antibody Screen Negative Crossmatch See Detail 05/13/19 05/13/19 05:09 05:09 WBC 10.2 RBC 3.82 L Hgb 9.1 L Hct 29.5 L MCV 77.2 L MCH 23.9 L MCHC 31.0 RDW 23.1 H Plt Count 252 Neut % (Auto) 81.9 H Lymph % (Auto) 9.5 L [place] % (Auto) 7.9 Eos % (Auto) 0.0 L Baso % (Auto) 0.7 Neut # (Auto) 8300 H Lymph # (Auto) 1000 L [place] # (Auto) 800 Eos # (Auto) 0 Baso # (Auto) 100 RBC Morphology See below Hypochromasia 1+ H Poikilocytosis 1+ H Anisocytosis 2+ H Microcytosis Acanthocytes (Spur) PT INR Sodium 132 L Potassium 3.7 Chloride 102 Carbon Dioxide 24 BUN 8 Creatinine 0.71 Estimated GFR > 60.0 BUN/Creatinine Ratio 11.3 Glucose 109 Calcium 8.6 Magnesium 1.8 Blood Type Antibody Screen Crossmatch Assessment & Plan Post-op Postoperative Procedures: Procedures Operation Date: 05/11/19 13:15 Actual Procedures Side Surgeon p Esophagogastroduodenoscopy with Biopsy Radha Gillette MD s Colonoscopy with Injection Radha Gillette MD Operation Date: 05/12/19 09:00 Actual Procedures Side Surgeon p Laparoscopically hand Assisted extended right yves colectomy Right Radha Gillette MD Postoperative status narrative: 78-year-old female postoperative day 1 status post right hemicolectomy for colon cancer doing well. No flatus or bowel movement yet mild nausea. May continue clear liquid diet as tolerated. Hct 30, WBC 10, Cr 0.7 -remove Aguayo catheter -continue IV fluids until adequate p.o. intake -SCDs for VTE prophylaxis -out of bed to chair ambulate Quality VTE Deep Vein Thrombosis/Pulmonary Embolism Present on Admission: No
--- NOTE | 2019-05-13 11:49 | P.PN_ITS ---
Subjective Subjective Date Patient Seen: 05/13/19 Time Patient Seen: 09:15 Interval history: Patient is sitting up in bed this morning. Tells me that she was really confused last night. Thinks it was the anesthesia. She seems well aware of the situation this morning. Except for what the date is. She demonstrates use of the incentive spirometer and is able to get to goal. She tells me that the coffee is horrible. The T is better and is available all day. She is not particularly hungry. Denies any pain. She tells me that when she stands for long periods for time her ankles swell. Exam Vital Signs (past 8 hours): - 05/13/19 07:25 Temperature 98.0 F Pulse Rate 74 Respiratory Rate 14 Blood Pressure 128/58 L Pulse Oximetry 98 Oxygen Delivery Method Room Air Oxygen Flow Rate 0 Narrative Exam Narrative: General: Well-developed, well-nourished, female, no acute distress, she has more pink in her cheeks today.. Heart: Regular rate and rhythm, no murmurs appreciated Lungs: Mostly Clear to auscultation bilaterally, no wheezes, rales or rhonchi, fine crackles in the left base Extremities: Warm and well perfused, some puffiness in her feet and ankles Objective Labs Result Diagrams: 05/13/19 05:09 05/13/19 05:09 Labs: Laboratory Results - last 24 hr 05/12/19 05/12/19 05/13/19 13:28 13:28 05:09 WBC 9.4 D 10.2 RBC 4.34 3.82 L Hgb 10.3 L 9.1 L Hct 34.4 L 29.5 L MCV 79.1 L D 77.2 L MCH 23.8 L 23.9 L MCHC 30.1 31.0 RDW 22.9 H 23.1 H Plt Count 292 252 Neut % (Auto) 94.6 H D 81.9 H Lymph % (Auto) 3.8 L 9.5 L [place] % (Auto) 0.5 L 7.9 Eos % (Auto) 0.1 L 0.0 L Baso % (Auto) 1.0 0.7 Neut # (Auto) 8900 H 8300 H Lymph # (Auto) 400 L 1000 L [place] # (Auto) 0 800 Eos # (Auto) 0 0 Baso # (Auto) 100 100 RBC Morphology See below See below Hypochromasia 1+ H Poikilocytosis 1+ H Anisocytosis 3+ H 2+ H Microcytosis 1+ H Acanthocytes (Spur) 1+ H PT 12.1 INR 1.1 Sodium Potassium Chloride Carbon Dioxide BUN Creatinine Estimated GFR BUN/Creatinine Ratio Glucose Calcium Magnesium 05/13/19 05:09 WBC RBC Hgb Hct MCV MCH MCHC RDW Plt Count Neut % (Auto) Lymph % (Auto) [place] % (Auto) Eos % (Auto) Baso % (Auto) Neut # (Auto) Lymph # (Auto) [place] # (Auto) Eos # (Auto) Baso # (Auto) RBC Morphology Hypochromasia Poikilocytosis Anisocytosis Microcytosis Acanthocytes (Spur) PT INR Sodium 132 L Potassium 3.7 Chloride 102 Carbon Dioxide 24 BUN 8 Creatinine 0.71 Estimated GFR > 60.0 BUN/Creatinine Ratio 11.3 Glucose 109 Calcium 8.6 Magnesium 1.8 Assessment & Plan Assessment & Plan narrative: 78 yo female with colon cancer with partially obstructing mass POD#1 right hemicolectomy doing well. 1. Overnight confusion likely secondary to anesthesia and hydromorphone. She will use oxycodone today and minimize use of hydromorphone. Will hold her clonazepam for now. She might benefit having her daughter stay with her while in-house if this worsens. 2. 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 Source of active bleeding has been removed. Her hemoglobin is the best it has been in a long time at 9.1 today. Will continue to monitor. Will add iron studies to her labs for tomorrow. 3. Anxiety/hypertension. has been using propranolol dual purpose for blood press ure and anxiety. 4. Asthma. Will monitor for symptoms. She had been using a controller medication in the past. She is doing well with incentive spirometry. 5. Colon cancer. Await pathology results. Will need oncology referral post hospitalization. Code status: full code DVT prophylaxis: SCD's for now given potential for postoperative bleeding. Will continue to follow. Quality VTE Deep Vein Thrombosis/Pulmonary Embolism Present on Admission: No
--- NOTE | 2019-05-13 13:01 | PC.NURSE ---
Addendum entered by Tammie Bassett R.N. 05/13/19 14:54: Dressing to kian drain changed, patient is up in room ambulating. phoned and wants patient to ambulate. She is also going to order a PT consult. Addendum entered by Tammie Bassett R.N. 05/13/19 14:22: Patient moved to room 203, she states that oxycodone has been effective for care. She has an open abdominal binder and states that she really does not have to use. Dressing cdi, gauze with tap and dressing around kian drain with some dried bloody drainage but intact. Original Note: Assess- Patient is awake and oriented, slightly confused but makes sense and knows where she is.. She has an incision to her lower abdomen that is cdi with smaller incisions. Patient has a kian drain that is putting out ss drainage. BT are postive but hypo. Patient just complained of discomfort and given oxycodone with some tylenol. She is being moved to room down on [facility] and just left.
[2019-05-13] MEDS: PROPRANOLOL 40 MG TABLET 60 MG PO ×2 (14:33→20:58)
--- NOTE | 2019-05-13 17:08 | PC.NURSE ---
Addendum entered by Tabitha Ken R.N. 05/13/19 21:04: Pt resting at intervals. Oxycodone held due to 'sleepiness & dening pain. IVF continue as per orders,. HL intact/patent. Aguayo cath D/C'd @ 194 per MD orders. Call light w/in reach, bed alarm on for pt safety. Continue w/plan of care. Original Note: Pt watching TV, denies any c/o @ this time. Lungs clear/diminished SpO2 96% Abd w/midline incision w/doug intact. Jayce drain patent red colored content. IVF of NS w/ 40meq of KCL infusing via pump into the left wrist. HL in the right wrist area, both intact/patent. Aguayo cath patent clear yellow urine. Calf SCD in place. Call light w/in reach, bed alrm on for pt safety.
[2019-05-14] VITALS (7 sets, daily range): BP systolic 122–153; BP diastolic 62–81; PULSE 63–77; RESP 16–18; TEMP 36.5–37.6; O2SAT 94–98
[2019-05-14] MEDS: ACETAMINOPHEN 325 MG TABLET 650 MG PO ×5 (00:04→23:47)
--- NOTE | 2019-05-14 06:21 | PC.NURSE ---
Pain level / scheduled Tylenol admin. No C/O nausea, dressings to kian drain site saturated with serous drainage. Changed twice this shift, will monitor.
[2019-05-14 06:23] LABS: Add Manual Diff / Slide Review NO; Basophils Absolute Auto 0 /uL (0-100); Basophils Percent Auto 0.4 % (0-2); Eosinophils Absolute Auto 100 /uL (0-450); Eosinophils Percent Auto 0.9 % (2-4); Hematocrit 29.6 % (36-46); Hemoglobin 9.1 g/dL (12.0-16.0); Lymphocytes Absolute Auto 900 /uL (1100-4500); Lymphocytes Percent Auto 14.2 % (25-40); Mean Corpuscular HGB Conc 30.6 % (30-36); Mean Corpuscular Hemoglobin 23.8 PG (26-34); Mean Corpuscular Volume 77.9 fL (80-100); Monocytes Absolute Auto 600 /uL (0-900); Monocytes Percent Auto 8.5 % (3-14); Neutrophils Absolute Auto 5000 /uL (1500-7000); Platelet Count 256 X10^3/uL (150-400); Red Cell Distribution Width 23.3 % (11.6-14.8); White Blood Cell Count 6.6 X10^3/uL (4.5-11.0)
[2019-05-14 06:29] LABS: Blood Urea Nitrogen 6 mg/dL (7-17); Calcium 8.4 mg/dL (8.4-10.2); Carbon Dioxide 24 mmol/L (22-32); Chloride 102 mmol/L (98-107); Estimated Glomerular Filt Rate > 60.0 mL/min (>60); Glucose 91 mg/dL (80-110); HEMOLYSIS < 15 (0-50); Magnesium 1.8 mg/dL (1.6-2.3); Potassium 4.1 mmol/L (3.4-5.1); Sodium 131 mmol/L (137-145)
[2019-05-14 06:43] LABS: Anisocytosis 2+; Hypochromasia 1+; Microcytosis 2+; Poikilocytosis 1+
[2019-05-14] MEDS: KCL 40 MEQ IN NS 1,000 ML 80 MEQ IV ×2 (08:34→20:14)
[2019-05-14] MEDS: SODIUM CHLORIDE 0.9% FLUSH 10 ML IV ×2 (09:49→20:06)
[2019-05-14] MEDS: PROPRANOLOL 40 MG TABLET 60 MG PO ×2 (09:49→20:04)
[2019-05-14] MEDS: FERROUS SULFATE 325 MG TABLET PO ×2 (09:52→20:04)
[2019-05-14] MEDS: HEPARIN 5,000 UNIT/ML VIAL 5000 UNIT SUBCUT ×2 (09:53→20:03)
[2019-05-14] MEDS: PANTOPRAZOLE 40 MG TABLET PO ×2 (09:53→20:04)
--- NOTE | 2019-05-14 10:16 | PM.PNPO.1 ---
Subjective Subjective Date Patient Seen: 05/14/19 Time Patient Seen: 10:16 Interval history: Patient feels pretty good.No flatus or BM. Tolerating liquids but not very humgry. Has been walking the halls. Exam Vital Signs (past 8 hours): - 05/14/19 06:00 05/14/19 08:50 Temperature 99.2 F 98.1 F Pulse Rate 72 69 Respiratory Rate 16 17 Blood Pressure 153/81 H 122/80 Pulse Oximetry 94 95 Oxygen Delivery Method Room Air Oxygen Flow Rate 0 Narrative Exam Narrative: clear. Good effort. Heart RRR. Abd soft. Incisionintact. Drainage serous. Objective Labs Result Diagrams: 05/14/19 05:52 05/14/19 05:52 Labs: Laboratory Results - last 24 hr 05/14/19 05/14/19 05:52 05:52 WBC 6.6 RBC 3.80 L Hgb 9.1 L Hct 29.6 L MCV 77.9 L MCH 23.8 L MCHC 30.6 RDW 23.3 H Plt Count 256 Neut % (Auto) 76.0 H Lymph % (Auto) 14.2 L [place] % (Auto) 8.5 Eos % (Auto) 0.9 L Baso % (Auto) 0.4 Neut # (Auto) 5000 Lymph # (Auto) 900 L [place] # (Auto) 600 Eos # (Auto) 100 Baso # (Auto) 0 RBC Morphology See below Hypochromasia 1+ H Poikilocytosis 1+ H Anisocytosis 2+ H Microcytosis 2+ H Sodium 131 L Potassium 4.1 Chloride 102 Carbon Dioxide 24 BUN 6 L Creatinine 0.75 Estimated GFR > 60.0 BUN/Creatinine Ratio 8.0 Glucose 91 Calcium 8.4 Magnesium 1.8 Assessment & Plan Post-op Postoperative Procedures: Procedures Operation Date: 05/11/19 13:15 Actual Procedures Side Surgeon p Esophagogastroduodenoscopy with Biopsy Radha Gillette MD s Colonoscopy with Injection Radha Gillette MD Operation Date: 05/12/19 09:00 Actual Procedures Side Surgeon p Laparoscopically hand Assisted extended right yves colectomy Right Radha Gillette MD Postoperative status: doing well Postoperative plan narrative: await return of bowel function. continue present care' Quality VTE Deep Vein Thrombosis/Pulmonary Embolism Present on Admission: No
--- NOTE | 2019-05-14 10:27 | PT.IIE ---
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 (05/11/19) Gastrointestinal hemorrhage, unspecified (05/11/19) Abnormal weight loss (05/11/19) Surgery Performed Operation Date: 05/11/19 13:15 Actual Procedures p Esophagogastroduodenoscopy with Biopsy - Radha Gillette MD s Colonoscopy with Injection - Radha Gillette MD Operation Date: 05/12/19 09:00 Actual Procedures p Laparoscopically hand Assisted extended right yves colectomy(Right) - Radha Gillette MD Surgical History (Last Updated 05/14/19 @ 07:20 by Vesta Kerr DO) H/O right hemicolectomy (Acute ~04/2019) History of cataract removal with insertion of prosthetic lens (05/11/11) History of cataract removal with insertion of prosthetic lens (04/27/11) History of esophagogastroduodenoscopy (EGD) (07/08/16) History of esophagogastroduodenoscopy (EGD) (Acute ~07/2017) History of mastectomy, subtotal (Acute ~2008) Status post breast biopsy (08/06/08) Status post breast lumpectomy (08/20/08) Status post colonoscopy (~08/2009) Status post colonoscopy (03/2015) Status post partial mastectomy (08/28/08) Medical History (Last Reviewed 05/11/19 @ 18:12 by Radha Gillette MD) Anxiety (Chronic 05/06/11) 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) Colitis (Acute ~2009) Essential hypertension (Chronic 05/06/11) Family history of colon cancer (Acute) History of colitis (Acute ~2009) History of malignant neoplasm of left breast (2008) Iron deficiency anemia (07/30/15) Malignant neoplasm of skin of nose (02/15/14) Nontoxic uninodular goiter (Acute 02/15/14) Osteopenia (01/10/14) Physical Therapy Inpatient Evaluation/Re-Eval M1 PT/OT-IP Prior Functional Status Start: 05/14/19 08:28 Freq: NEEDED Status: Active Protocol: Document 05/14/19 10:00 AW (Rec: 05/14/19 10:26 AW [id number]) Medical Review Prior Functional Status Medical History Reviewed Yes Communication WNL Mobility and Gait Independent without use of assistive device. Activities of Daily Living and IADL's Independent for all, including driving, medications, finances. Prior Functional Level (Other details) Pt has been providing care for her brother who also had colon cancer. Social History Household Members none Living Arrangements House Number of Floors (Floors) One Floor Number of Stairs To Enter/Railing? 2 JUAN without railing Home Environment Standard Height Toilet Home Equipment Grab Bars In Shower Employment Status [employer] Employed Additional Social History Comment Pt lives alone and has been working part-time as a home health aide as well as helping out her brother through his own treatment for colon cancer . Pt states she regularly sleeps in a recliner. Of note, her daughter, Savana, used to work in nutrition services at this hospital. Pt states she will likely discharge to her daughter's home where Savana will be available to provide assistance. M2 PT-IP Current Condition Start: 05/14/19 08:28 Freq: NEEDED Status: Active Protocol: Document 05/14/19 10:00 AW (Rec: 05/14/19 10:26 AW [id number]) Physical Therapy Current Condition Current Condition Evaluation Date 05/14/19 Treatment Diagnosis colon mass s/p R hemicolectomy ; impaired mobility Onset Date 05/11/19 Precautions Abdominal Surgery Precautions Log Roll,Lifting Restrictions, Gait Belt above Incisional Area Weight Bearing Status Weight Bearing Status Full Weight Bearing M3 PT-IP Subjective Start: 05/14/19 08:28 Freq: NEEDED Status: Active Protocol: Document 05/14/19 10:00 AW (Rec: 05/14/19 10:26 AW [id number]) Subjective Physical Therapy Visit Type Type Initial Evaluation Visit Start Time 09:13 Visit Stop Time 09:36 Total Visit Minutes 23 Physical Therapy Visit Comments Patient Comments Pt is willing to participate with PT Patient Goals To go home or to her daughter' s house with daughter to assist. Therapy Pain Assessment Pain When Pain Assessed During Mobility Pain Present Pain Present Pain Reported Location abdomen Intensity 6 Scale Used 4/10 at rest, 6/10 with mobility Pain Management Techniques Re-positioning,Timing of Activity with Medications M4 PT-IP Mobility and Gait Start: 05/14/19 08:28 Freq: NEEDED Status: Active Protocol: Document 05/14/19 10:00 AW (Rec: 05/14/19 10:26 AW [id number]) PT-Bed Mobility Assessment Rolling Type of Rolling Log Rolling,Roll to Right Level of Assist Standby Assistance Supine to Sit Supine to Sit Standby Assistance Sit to Supine Sit to Supine Independent Scooting Scooting to Edge of Bed Independent PT-Transfer Assessment Sit to and From Stand Sit to and from Stand Independent Equipment Transfer Assistive Device Gait Belt Transfer Ability Level of Assist Independent Comments Mobility Comments Pt required SBA and sequencing cues for log roll bed mobility but was independent for transfers. She was aware of her abdominal precautions and able to return demonstrate log roll technique. Gait Assessment Gait Gait Assistance Required: Standby Assistance Distance (Feet) 220 Able to Maintain Weight Bearing Status Yes During Gait Assistive Devices Assistive Device Gait Belt Orthotic/Prosthetic Devices or Brace: No Gait Deviations General Gait Pattern Antalgic,Decreased Stride Length,Decreased Feet Clearance Factors Limiting Gait Function Factors Limiting Gait Function Decreased Activity Tolerance, Decreased Strength,Pain Comments Gait Comments Pt ambulated in the halls 220 feet (first 50 feet with IV pole support; remaining without AD). Jade was slow which pt acknowledged was slower than baseline, but no evidence of imbalance was observed. Stair Climbing Assessment Evaluation Level of Assist On Stairs Standby Assistance Devices Stair Climbing Assistive Devices None Technique/Endurance Stair Climbing Direction Ascend and Descend Stair Climbing Technique Step Over Step,Step to Step Number of Steps Climbed 3 Query Text: Stair Climbing Set # Repetitions (reps) 2 Comments Stair Climbing Comments Pt ascended step over step and descended step-to without railing SBA. PT-Balance Assessment Sitting Balance and Reactions Static Sitting Balance Ability Normal Dynamic Sitting Balance Ability Normal Standing Balance and Reactions Static Standing Balance Ability Good Dynamic Standing Balance Ability Good Device Used none M5 PT-IP Objective Assessments Start: 05/14/19 08:28 Freq: NEEDED Status: Active Protocol: Document 05/14/19 10:00 AW (Rec: 05/14/19 10:26 AW [id number]) Orientation Orientation/Cognition Level of Alertness Alert Orientation Name,Day of Week,Place, Situation Language Function Ability No Deficits Noted Safety Awareness Understands Safety Issues Memory Description No Deficits Noted Gross Range of Motion Lower Extremity ROM Assessment Within Functional Limits Strength Lower Extremity Strength Assessment Bilaterally Impaired Hip 4-/5 Knee 4/5 Ankle 4/5 Comments Strength Comments Strength symmetrical. Hip deficit likely related to abdominal pain. Coordination Assessment Gross Coordination Gross Coordination WNL Sensation Assessment Sensation Gross Sensation WNL Muscle Tone Muscle Tone WNL Yes M6 PT-IP Treatment Start: 05/14/19 08:28 Freq: NEEDED Status: Active Protocol: Document 05/14/19 10:00 AW (Rec: 05/14/19 10:26 AW [id number]) Physical Therapy Treatment Education Education Provided Precautions,Safety Other Treatments Other Treatment Performed Provided education on role of PT, plan of care, abdominal precautions, and safe ambulation without AD. M7 PT-IP Assessment and Plan Start: 05/14/19 08:28 Freq: NEEDED Status: Active Protocol: Document 05/14/19 10:00 AW (Rec: 05/14/19 10:26 AW [id number]) PT Summary Assessment and Plan Potential Rehabilitation Potential Excellent Status of Condition at Evaluation Stable Summary Impairments Pain,Strength,Bed Mobility, Transfers,Gait,Activity Tolerance Assessment Summary Nidhi is a 78yo woman seen for PT evaluation on POD2 following R hemicolectomy for colon cancer. At baseline, pt lives alone and is indpendent in all regards. On evaluation, she required SBA for bed mobility and for ambulation without assistive device, but was otherwise independent. Pt sleeps in a recliner at home, but is considering discharge to her daughter, Jose, house where she will have her daughter's assistance. PT anticipates this pt will meet the functional goals of this plan of care and be safe to discharge to her daughter's home with assistance once medically cleared. Goals Bed Mobility Goal Independent Transfer Goal Independent Gait Goal Independent Gait Distance 300 Other Goals - up/down 2 steps without railing independent Days to Meet Goals 2 Frequency of Treatment Frequency Of Treatment Once a Day Treatment Plan Physical Therapy Treatment Plan Bed Mobility Training,Transfer Training,Gait Training, Therapeutic Exercise,Balance Retraining,Post Op Education, Discharge Planning Other Recommendations and Next Treatment progress independent Focus ambulation, continue stair practice, review precautions Recommendations To Nursing Amount of Assist Needed Standby Assistance Discharge Recommendations PT Discharge Recommendations Home with Assistance Transportation Needs at Discharge Private Vehicle
--- NOTE | 2019-05-14 13:52 | CM.DPC ---
DCP continued: EMR reviewed: CM/RN met with patient at the bedside. patient was alert and orientedx3. CM/RN just checking in to make sure no changes to D/C plan is needed. Patient states her plan is still to D/C home with help from her daughter at D/C. PT evaluation states home with assistance. No change noted to D/C plan at this time. Ankita Garvin RN
[2019-05-14 15:14] LABS: HEMOLYSIS < 15 (0-50); Iron 17 ug/dL (37-170)
[2019-05-14 15:24] LABS: Percent Iron Saturation 6 % (15-50); Total Iron Binding Capacity 304 ug/dL (265-497); Transferrin 229 mg/dL (206-381)
--- NOTE | 2019-05-14 15:25 | PC.NURSE ---
Shift summary: Alert and oriented X3. Reports (abd) incisional pain well-managed with scheduled Tylenol. New dressing placed to midline abd incision and drain site. Midline incision was well-approximated with doug, no active bleeding or drainage. Drain-site dressing was saturated with sero-sanguinous drainage. Bowel tones present but quite hypoactive. Denies passing flatus yet. Abdomen soft, tender. Minimal appetite, doing her best w/ full liquids. Lungs CTA, dim posterior bases. Using IS independently, encouraged ongoing use. Able to make needs known and calls appropriately. Light and belongings within reach, bed alarm on.
--- NOTE | 2019-05-14 15:32 | DIET.PN ---
Dietary Progress Note Assessment: Ms. Camarena is a 78-year-old woman with history of acid reflux, Coppola's esophagus, history of breast cancer, and a recent history of worsening weakness, fatigue, shortness of breath. She has experienced 30 lb unintentional weight loss over the last year. Through colonoscopy and upper endoscopy, she was found to have low grade gastritis, and Coppola's esophagus, as well as a large, bleeding, nearly obstructing cancer in the right side of the colon. HT: 167.64 cm WT: 72kg UBW: 87.5kg (Apr) BMI: 25.6 Labs: Na: 131 BUN: 6 MNA: 11 Luis: 21 PO's: <25% Nutrition Diagnosis: Severe chronic illness protein calorie malnutrition r/t GI complications aeb 35 lb (17.7%) unintentional weight loss in 1 year, GI symptoms, energy intake <50%, DX colon cancer. Interventions: 1. ONS ensure enlive BID until patient can tolerate regular diet. Diet Order: Full Liquid EER: 1800 kcal; 80 g pro Monitoring/Evaluations: PO's, weight
[2019-05-14 15:50] LABS: Ferritin 103 ng/mL (11-264)
--- NOTE | 2019-05-14 15:57 | P.PN_ITS ---
Subjective Subjective Date Patient Seen: 05/14/19 Time Patient Seen: 15:57 Interval history: Patient is sitting up in bed talking with nursing staff. She tells me that she is feeling better today. She is using her incentive spirometer. Not particularly hungry. Exam Vital Signs (past 8 hours): - 05/14/19 08:50 05/14/19 12:13 Temperature 98.1 F 97.7 F Pulse Rate 69 77 Respiratory Rate 17 18 Blood Pressure 122/80 151/75 H Pulse Oximetry 95 98 Oxygen Delivery Method Room Air Oxygen Flow Rate 0 Narrative Exam Narrative: General: Well-developed, well-nourished, female, no acute distress Heart: Regular rate and rhythm, no murmurs appreciated Lungs: Totally Clear to auscultation bilaterally, no wheezes, rales or rhonchi Extremities: Warm and well perfused, no edema Objective Labs Result Diagrams: 05/14/19 05:52 05/14/19 05:52 Labs: Laboratory Results - last 24 hr 05/14/19 05/14/19 05/14/19 05:52 05:52 05:52 WBC 6.6 RBC 3.80 L Hgb 9.1 L Hct 29.6 L MCV 77.9 L MCH 23.8 L MCHC 30.6 RDW 23.3 H Plt Count 256 Neut % (Auto) 76.0 H Lymph % (Auto) 14.2 L [place] % (Auto) 8.5 Eos % (Auto) 0.9 L Baso % (Auto) 0.4 Neut # (Auto) 5000 Lymph # (Auto) 900 L [place] # (Auto) 600 Eos # (Auto) 100 Baso # (Auto) 0 RBC Morphology See below Hypochromasia 1+ H Poikilocytosis 1+ H Anisocytosis 2+ H Microcytosis 2+ H Sodium 131 L Potassium 4.1 Chloride 102 Carbon Dioxide 24 BUN 6 L Creatinine 0.75 Estimated GFR > 60.0 BUN/Creatinine Ratio 8.0 Glucose 91 Calcium 8.4 Magnesium 1.8 Iron TIBC % Saturation Transferrin Ferritin 103 05/14/19 05:52 WBC RBC Hgb Hct MCV MCH MCHC RDW Plt Count Neut % (Auto) Lymph % (Auto) [place] % (Auto) Eos % (Auto) Baso % (Auto) Neut # (Auto) Lymph # (Auto) [place] # (Auto) Eos # (Auto) Baso # (Auto) RBC Morphology Hypochromasia Poikilocytosis Anisocytosis Microcytosis Sodium Potassium Chloride Carbon Dioxide BUN Creatinine Estimated GFR BUN/Creatinine Ratio Glucose Calcium Magnesium Iron 17 L TIBC 304 % Saturation 6 L Transferrin 229 Ferritin Assessment & Plan Assessment & Plan narrative: 78 yo female with colon cancer with partially obstructing mass POD#2 right hemicolectomy doing well. 1. Postprocedure confusion has totally resolved. Will continue to hold her clonazepam. Potentially transition to another medication for sleep at [facility]. 2. 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 Source of active bleeding has been removed. Her hemoglobin is the best it has been in a long time at 9.1 today. She finds oral iron constipating. Iron panel results show that she is low on iron despite infusion of a gram over the course of the last month. Await ferritin results. 3. Anxiety/hypertension. has been using propranolol dual purpose for blood pressure and anxiety. Will add lisinopril today for her blood pressure. She has been running borderline is outpatient anyway. 4. Asthma. Will monitor for symptoms. She had been using a controller medication in the past. She is doing well with incentive spirometry. 5. Colon cancer. Await pathology results. Will need oncology referral post hospitalization. Code status: full code DVT prophylaxis: Per surgery Will continue to follow. Quality VTE Deep Vein Thrombosis/Pulmonary Embolism Present on Admission: No
--- NOTE | 2019-05-14 17:53 | PC.NURSE ---
Addendum entered by Tabitha Ken R.N. 05/14/19 20:56: Pt resting quietly @ intervals. Uneventful evening. HLx 2 intact/patent. Call light w/in reach, bed alarm on for pt safety. Continue w/plan of care. Original Note: Pt watching TV. Assisted to BR w/o incidence. Lungs clear, SpO2 96% RA IS to 1500. HL in the RFA & left wrist intact/patant. Call light w/in reach, bed alarm on for pt safety.
[2019-05-14] MEDS: lisinopriL 10 MG TABLET PO (18:28)
[2019-05-15] MEDS: ACETAMINOPHEN 325 MG TABLET 650 MG PO ×3 (05:23→17:52)
[2019-05-15 06:00] VITALS: BP 136/76; PULSE 65; RESP 16; TEMP 36.5; O2SAT 97
--- NOTE | 2019-05-15 07:19 | PC.NURSE ---
0530 Pain level down to 4, routine Tylenol 650 mg. Dressing to kian drain site saturated with serous drainage. Dressing Changed.
[2019-05-15] MEDS: KCL 40 MEQ IN NS 1,000 ML 80 MEQ IV (07:41)
[2019-05-15 08:35] VITALS: BP 139/63; PULSE 86; RESP 17; TEMP 37.1; O2SAT 96
[2019-05-15] MEDS: PROPRANOLOL 40 MG TABLET 60 MG PO ×2 (09:10→20:58)
[2019-05-15] MEDS: SODIUM CHLORIDE 0.9% FLUSH 10 ML IV (09:12)
[2019-05-15] MEDS: PANTOPRAZOLE 40 MG TABLET PO ×2 (09:12→20:56)
[2019-05-15] MEDS: FERROUS SULFATE 325 MG TABLET PO (09:12)
[2019-05-15] MEDS: lisinopriL 10 MG TABLET PO (09:12)
[2019-05-15] MEDS: HEPARIN 5,000 UNIT/ML VIAL 5000 UNIT SUBCUT ×2 (09:12→20:56)
--- NOTE | 2019-05-15 10:51 | PC.NURSE ---
Shift summary: Awake and alert, oriented X3. Denies N/V. Tolerating full liquids, but not eating much r/t minimal appetite. BT+, hypoactive. Denies flatus. Abd soft, a bit tender. Abd dressings to midline and drain site C/D/I. Reports pain well-managed with scheduled Tylenol and understands she can have something stronger if she needs it. IVF per orders. Up to BR with 1-person assist, steady on feet. Encouraged to ambulate, but she has not wanted to yet this morning. Dr Gillette in to see at this time. Calls appropriately. Light and belongings within reach, bed alarm on.
--- NOTE | 2019-05-15 11:12 | PM.PN.1 ---
Subjective Subjective Date Patient Seen: 05/15/19 Time Patient Seen: 11:12 Interval history: No acute events overnight. The patient denies flatus. Reports burping, hiccuping, but no nausea. Exam Vital Signs (past 8 hours): - 05/15/19 06:00 05/15/19 08:35 Temperature 97.7 F 98.7 F Pulse Rate 65 86 Respiratory Rate 16 17 Blood Pressure 136/76 139/63 Pulse Oximetry 97 96 Oxygen Delivery Method Room Air Oxygen Flow Rate 0 Narrative Exam Narrative: Alert, oriented, comfortable, no distress, non toxic, good color and skin turgor abdomen soft, appropriate TTP DIANELYS drain serous, removed during exam incisions c/d/i/a non tachypneic, breathing comfortably on room air Objective Labs Result Diagrams: 05/14/19 05:52 05/14/19 05:52 Labs: Laboratory Results - last 24 hr 05/11/19 05/14/19 05/14/19 11:35 05:52 05:52 Iron 17 L TIBC 304 % Saturation 6 L Transferrin 229 Ferritin 103 Crossmatch See Detail Assessment & Plan Assessment and plan (1) Colon cancer: Current visit: Yes Status: Acute (2) Symptomatic anemia: Current visit: No Status: Acute (3) Gastritis: Current visit: No Status: Acute (4) Barretts esophagus: Current visit: No Status: Acute (5) Family history of colon cancer: Current visit: No Status: Acute (6) Weight loss: Problem details: Likely secondary to colon cancer Current visit: No Status: Acute Assessment & Plan narrative: 78 yo woman POD 3 s/p extended right hemicolectomy for bleeding cancer. Hgb stable yesterday and Tuesday. Not checked today. Pt is still on saline w Potassium. Not passing gas/stool. Taking minimal PO. Plan: Ambulate TID 20 minutes each time Hold FeSO4 until passing stool check labs, replete electrolytes Continue DVT ppx, GI PPX dispo pending return of bowel function and labs,vitals stable Time Spent With Patient Time with patient: 25 - 35 minutes Quality VTE Deep Vein Thrombosis/Pulmonary Embolism Present on Admission: No
[2019-05-15 11:32] LABS: Add Manual Diff / Slide Review NO; Basophils Absolute Auto 100 /uL (0-100); Basophils Percent Auto 1.1 % (0-2); Eosinophils Absolute Auto 100 /uL (0-450); Eosinophils Percent Auto 2.5 % (2-4); Hematocrit 31.6 % (36-46); Hemoglobin 9.7 g/dL (12.0-16.0); Lymphocytes Absolute Auto 900 /uL (1100-4500); Lymphocytes Percent Auto 15.8 % (25-40); Mean Corpuscular HGB Conc 30.9 % (30-36); Mean Corpuscular Hemoglobin 23.9 PG (26-34); Mean Corpuscular Volume 77.6 fL (80-100); Monocytes Absolute Auto 500 /uL (0-900); Monocytes Percent Auto 8.5 % (3-14); Neutrophils Absolute Auto 4000 /uL (1500-7000); Neutrophils Percent Auto 72.1 % (50-75); Platelet Count 280 X10^3/uL (150-400); Red Blood Cell Count 4.07 X10^6/uL (4.0-5.2); Red Cell Distribution Width 24.2 % (11.6-14.8); White Blood Cell Count 5.6 X10^3/uL (4.5-11.0)
[2019-05-15 11:43] LABS: BUN Creatinine Ratio 9.7 (6-22); Blood Urea Nitrogen 6 mg/dL (7-17); Calcium 8.6 mg/dL (8.4-10.2); Carbon Dioxide 26 mmol/L (22-32); Chloride 100 mmol/L (98-107); Estimated Glomerular Filt Rate > 60.0 mL/min (>60); Glucose 114 mg/dL (80-110); HEMOLYSIS < 15 (0-50); Magnesium 1.7 mg/dL (1.6-2.3); Sodium 130 mmol/L (137-145)
[2019-05-15 11:59] LABS: Anisocytosis 2+; Basophilic Stippling 1+; Burr Cells 1+; Polychromasia 1+
[2019-05-15 13:00] VITALS: BP 135/60; PULSE 79; RESP 18; TEMP 37.4; O2SAT 95
--- NOTE | 2019-05-15 14:20 | PT.IPTN ---
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 (05/11/19) Gastritis, unspecified, without bleeding (05/11/19) Gastrointestinal hemorrhage, unspecified (05/11/19) Abnormal weight loss (05/11/19) Family history of malignant neoplasm of digestive organs (05/11/19) Surgery Performed Operation Date: 05/11/19 13:15 Actual Procedures p Esophagogastroduodenoscopy with Biopsy - Radha Gillette MD s Colonoscopy with Injection - Radha Gillette MD Operation Date: 05/12/19 09:00 Actual Procedures p Laparoscopically hand Assisted extended right yves colectomy(Right) - Radha Gillette MD Physical Therapy Treatment Note M2 PT-IP Current Condition Start: 05/14/19 08:28 Freq: NEEDED Status: Active Protocol: Document 05/14/19 10:00 AW (Rec: 05/14/19 10:26 AW [id number]) Physical Therapy Current Condition Current Condition Evaluation Date 05/14/19 Treatment Diagnosis colon mass s/p R hemicolectomy ; impaired mobility Onset Date 05/11/19 Precautions Abdominal Surgery Precautions Log Roll,Lifting Restrictions, Gait Belt above Incisional Area Weight Bearing Status Weight Bearing Status Full Weight Bearing M3 PT-IP Subjective Start: 05/14/19 08:28 Freq: NEEDED Status: Active Protocol: Document 05/15/19 14:08 AW (Rec: 05/15/19 14:20 AW [id number]) Subjective Physical Therapy Visit Type Type Treatment Note Visit Start Time 13:35 Visit Stop Time 13:52 Total Visit Minutes 17 Physical Therapy Visit Comments Patient Comments Pt requires encouragement to mobilize but is ultimately willing to participate with PT . Patient Goals Pt still plans to discharge to her daughter's house M4 PT-IP Mobility and Gait Start: 05/14/19 08:28 Freq: NEEDED Status: Active Protocol: Document 05/15/19 14:08 AW (Rec: 05/15/19 14:20 AW [id number]) PT-Bed Mobility Assessment Rolling Type of Rolling Log Rolling,Roll to Right Level of Assist Standby Assistance Supine to Sit Supine to Sit Standby Assistance Sit to Supine Sit to Supine Independent Scooting Scooting to Edge of Bed Independent PT-Transfer Assessment Sit to and From Stand Sit to and from Stand Standby Assistance Equipment Transfer Assistive Device Gait Belt Transfers Transfer Destination Bed,Toilet Transfer Technique pt ambulated without AD Transfer Ability Level of Assist Independent Comments Mobility Comments Pt required cues and SBA for sequencing log roll and SBA for sit to stand due to slight unsteadiness. She walked without AD to the toilet where she transferred SBA. She then ambulated around the unit 500 feet SBA without AD but did reach for the railings on the right side of the almaguer every ten feet for stability due to reported weakness and fatigue. After gait training, pt requested return to bed, completing sit to supine independent. Pt was positioned in bed with call light and table within reach, bed alarm armed for safety. Gait Assessment Gait Gait Assistance Required: Standby Assistance Distance (Feet) 500 Assistive Devices Assistive Device Gait Belt Orthotic/Prosthetic Devices or Brace: No Gait Deviations General Gait Pattern Antalgic,Decreased Stride Length,Decreased Feet Clearance Factors Limiting Gait Function Factors Limiting Gait Function Decreased Activity Tolerance, Decreased Strength,Pain Comments Gait Comments See mobility comments. Pt ambulated without IV pole support but did reach for the railings every ten feet for support. She was able to turn her head horizontally and vertically as well as change speed without path deviation or LOB. Stair Climbing Assessment Evaluation Level of Assist On Stairs Standby Assistance Devices Stair Climbing Assistive Devices None,Left Railing,Right Railing Technique/Endurance Stair Climbing Direction Ascend and Descend Stair Climbing Technique Step Over Step Number of Steps Climbed 3 Stair Climbing Set # Repetitions (reps) 2 Comments Stair Climbing Comments Pt states the stairs at her daughter's house have bilateral rails. M5 PT-IP Objective Assessments Start: 05/14/19 08:28 Freq: NEEDED Status: Active Protocol: Document 05/14/19 10:00 AW (Rec: 05/14/19 10:26 AW [id number]) Orientation Orientation/Cognition Level of Alertness Alert Orientation Name,Day of Week,Place, Situation Language Function Ability No Deficits Noted Safety Awareness Understands Safety Issues Memory Description No Deficits Noted Gross Range of Motion Lower Extremity ROM Assessment Within Functional Limits Strength Lower Extremity Strength Assessment Bilaterally Impaired Hip 4-/5 Knee 4/5 Ankle 4/5 Comments Strength Comments Strength symmetrical. Hip deficit likely related to abdominal pain. Coordination Assessment Gross Coordination Gross Coordination WNL Sensation Assessment Sensation Gross Sensation WNL Muscle Tone Muscle Tone WNL Yes M6 PT-IP Treatment Start: 05/14/19 08:28 Freq: NEEDED Status: Active Protocol: Document 05/15/19 14:08 AW (Rec: 05/15/19 14:20 AW [id number]) Physical Therapy Treatment Education Education Provided Precautions,Safety Other Treatments Other Treatment Performed Reviewed abdominal precautions and log roll for bed mobility . M7 PT-IP Assessment and Plan Start: 05/14/19 08:28 Freq: NEEDED Status: Active Protocol: Document 05/15/19 14:08 AW (Rec: 05/15/19 14:20 AW [id number]) PT Summary Assessment and Plan Potential Rehabilitation Potential Excellent Status of Condition at Evaluation Stable Summary Impairments Pain,Strength,Bed Mobility, Transfers,Gait,Activity Tolerance Progress Towards Goals Progressing Toward Goals Assessment Summary Nidhi progressed her ambulation distance but continues to require SBA and occasional railing support due to reported weakness and fatigue. Once medically cleared, she will be safe to discharge to her daughter's home with family assist. Goals Bed Mobility Goal Independent Transfer Goal Independent Gait Goal Independent Gait Distance 300 Other Goals - up/down 2 steps without railing independent Days to Meet Goals 1 Frequency of Treatment Frequency Of Treatment Once a Day Treatment Plan Physical Therapy Treatment Plan Bed Mobility Training,Transfer Training,Gait Training, Therapeutic Exercise,Balance Retraining,Post Op Education, Discharge Planning Other Recommendations and Next Treatment progress independent Focus ambulation, continue stair practice, review precautions Recommendations To Nursing Amount of Assist Needed Standby Assistance Discharge Recommendations PT Discharge Recommendations Home with Assistance
[2019-05-15] MEDS: MAGNESIUM SULFATE 2 GM/50 ML PIGGYBACK IV (14:49)
[2019-05-15 15:45] VITALS: BP 132/60; PULSE 66; RESP 16; TEMP 37; O2SAT 98
[2019-05-15] MEDS: OXYCODONE IR 5 MG TABLET PO (17:52)
[2019-05-15 19:24] VITALS: BP 127/63; PULSE 61; RESP 16; TEMP 36.7; O2SAT 96
[2019-05-15 23:10] VITALS: BP 113/66; PULSE 67; RESP 16; TEMP 37; O2SAT 95
[2019-05-16] VITALS (7 sets, daily range): BP systolic 101–134; BP diastolic 52–69; PULSE 66–79; RESP 16–18; TEMP 36.3–37.7; O2SAT 96–100
[2019-05-16] MEDS: ACETAMINOPHEN 325 MG TABLET 650 MG PO ×5 (00:05→23:48)
--- NOTE | 2019-05-16 00:27 | PC.NURSE ---
Addendum entered by Gabriella Roberson R.N. 05/16/19 06:07: Slept most of shift. Up to bathroom with SBA x 1 but missed measuring hat. Did have liquid stool along with urination. States pain is 3/10 this morning; medicated with scheduled Tylenol. Original Note: Patient is alert and oriented. Breath sounds diminished but CTA with RA sat of 95%. HRR. Denies nausea. BT hypoactive; had BM on previous shift. Dressing over drain site on right side of abdomen saturated with serous drainage so replaced. Denies dysuria, frequency or urgency with urination. Is able to move self in bed and is provided SBA when out of bed. Wearing bilateral calf SCD's. States pain is 4/10, achy but tolerable; medicated with scheduled Tylenol and declines other pain medication. Fall risk score is moderate; bed alarm is activated. HOB elevated to 30 degrees as per MD order. Declines use of abdominal binder.
[2019-05-16 06:16] LABS: BUN Creatinine Ratio 7.5 (6-22); Blood Urea Nitrogen 5 mg/dL (7-17); Calcium 8.7 mg/dL (8.4-10.2); Carbon Dioxide 26 mmol/L (22-32); Chloride 102 mmol/L (98-107); Estimated Glomerular Filt Rate > 60.0 mL/min (>60); Glucose 99 mg/dL (80-110); HEMOLYSIS < 15 (0-50); Sodium 132 mmol/L (137-145)
[2019-05-16] MEDS: SODIUM CHLORIDE 0.9% FLUSH 10 ML IV ×2 (09:25→20:46)
[2019-05-16] MEDS: PROPRANOLOL 40 MG TABLET 60 MG PO ×2 (09:26→20:45)
[2019-05-16] MEDS: PANTOPRAZOLE 40 MG TABLET PO ×2 (09:26→20:45)
[2019-05-16] MEDS: lisinopriL 10 MG TABLET PO (09:26)
[2019-05-16] MEDS: HEPARIN 5,000 UNIT/ML VIAL 5000 UNIT SUBCUT ×2 (09:26→20:45)
[2019-05-16] MEDS: LACTOBACILLUS ACIDOPHILUS TABLET 1 EACH PO ×2 (09:26→17:10)
[2019-05-16] MEDS: PSYLLIUM HUSK 1 PACKET PO (09:26)
--- NOTE | 2019-05-16 12:15 | PM.PN.1 ---
Subjective Subjective Date Patient Seen: 05/16/19 Time Patient Seen: 12:15 Interval history: No acute events overnight. Patient is now passing gas and loose stool. Pain is controlled with Tylenol. Denies cough, rhinorrhea, fever, shortness of breath. Exam Vital Signs (past 8 hours): - 05/16/19 07:45 Temperature 99.8 F H Pulse Rate 66 Respiratory Rate 16 Blood Pressure 134/66 Pulse Oximetry 97 Oxygen Delivery Method Room Air Oxygen Flow Rate 0 Narrative Exam Narrative: Alert, oriented, comfortable, no distress, non toxic, good color and skin turgor abdomen soft, appropriate TTP DIANELYS drain site with serous drainage on the gauze Other incisions c/d/i/a non tachypneic, breathing comfortably on room air Objective Labs Result Diagrams: 05/15/19 11:24 05/16/19 05:35 Labs: Laboratory Results - last 24 hr 05/16/19 05:35 Sodium 132 L Potassium 4.0 Chloride 102 Carbon Dioxide 26 BUN 5 L Creatinine 0.67 Estimated GFR > 60.0 BUN/Creatinine Ratio 7.5 Glucose 99 Calcium 8.7 Magnesium 2.0 Assessment & Plan Assessment and plan (1) Colon cancer: Current visit: Yes Status: Acute (2) Gastritis: Current visit: No Status: Acute (3) Barretts esophagus: Current visit: No Status: Acute Assessment & Plan narrative: This is a 78-year-old woman postop day three status post emergency right hemicolectomy for bleeding, partially obstructing colonic neoplasm. Pathology is still pending. She has had return of bowel function, and her hemoglobin has stabilized. We are now evaluating her for dehydration, and whether not her stool output is manageable at home. If we can get these things under control, we may be able to let her go home in the next day or so. Plan: Low residual diet Metamucil b.i.d. Probiotic b.i.d. Ambulate t.i.d. Change dressing over drain site as needed when it becomes saturated Follow stool output and hydration status Dispo planning Time Spent With Patient Time with patient: 15-24 minutes Quality VTE Deep Vein Thrombosis/Pulmonary Embolism Present on Admission: No
--- NOTE | 2019-05-16 12:29 | PT.IPTN ---
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 (05/11/19) Gastritis, unspecified, without bleeding (05/11/19) Gastrointestinal hemorrhage, unspecified (05/11/19) Abnormal weight loss (05/11/19) Family history of malignant neoplasm of digestive organs (05/11/19) Surgery Performed Operation Date: 05/11/19 13:15 Actual Procedures p Esophagogastroduodenoscopy with Biopsy - Radha Gillette MD s Colonoscopy with Injection - Radha Gillette MD Operation Date: 05/12/19 09:00 Actual Procedures p Laparoscopically hand Assisted extended right yves colectomy(Right) - Radha Gillette MD Physical Therapy Treatment Note M2 PT-IP Current Condition Start: 05/14/19 08:28 Freq: NEEDED Status: Active Protocol: Document 05/14/19 10:00 AW (Rec: 05/14/19 10:26 AW [id number]) Physical Therapy Current Condition Current Condition Evaluation Date 05/14/19 Treatment Diagnosis colon mass s/p R hemicolectomy ; impaired mobility Onset Date 05/11/19 Precautions Abdominal Surgery Precautions Log Roll,Lifting Restrictions, Gait Belt above Incisional Area Weight Bearing Status Weight Bearing Status Full Weight Bearing M3 PT-IP Subjective Start: 05/14/19 08:28 Freq: NEEDED Status: Active Protocol: Document 05/16/19 11:20 HH (Rec: 05/16/19 12:29 [id number]) Subjective Physical Therapy Visit Type Type Treatment Note Visit Start Time 11:20 Visit Stop Time 11:41 Total Visit Minutes 21 Physical Therapy Visit Comments Patient Comments Pt agreeable to mobilize with PT Patient Goals Pt still plans to discharge to her daughter's house Therapy Pain Assessment Pain Present Pain Present Denied Pain M4 PT-IP Mobility and Gait Start: 05/14/19 08:28 Freq: NEEDED Status: Active Protocol: Document 05/16/19 11:20 HH (Rec: 05/16/19 12:29 [id number]) PT-Bed Mobility Assessment Rolling Type of Rolling Log Rolling,Roll to Right Level of Assist Independent Supine to Sit Supine to Sit Independent Sit to Supine Sit to Supine Independent Scooting Scooting to Edge of Bed Independent PT-Transfer Assessment Sit to and From Stand Sit to and from Stand Standby Assistance Equipment Transfer Assistive Device Gait Belt Transfers Transfer Destination Bed,Toilet Transfer Technique pt ambulated without AD Transfer Ability Level of Assist Independent Comments Mobility Comments Pt was in bed upon PT arrival. Reports feeling a lot better today. She completed log roll to right and sat up without using bed features. She then stood up with SBA without AD. She went to bathroom and gait training and returned to chair with safe transfer techniques and hand placements on armrests during descends. Gait Assessment Gait Gait Assistance Required: Standby Assistance Distance (Feet) 560 Assistive Devices Assistive Device Gait Belt Orthotic/Prosthetic Devices or Brace: No Gait Deviations General Gait Pattern Flexed Trunk Factors Limiting Gait Function Factors Limiting Gait Function Decreased Activity Tolerance, Decreased Strength,Pain Comments Gait Comments See mobility comments. Pt amb with SBA without AD. She did not need to use rails/ any support for rest break today. Pt did amb with a flexed trunk due to tightness at abdominal region. Stair Climbing Assessment Evaluation Level of Assist On Stairs Contact Guard Assistance Devices Stair Climbing Assistive Devices None Technique/Endurance Stair Climbing Direction Ascend and Descend Stair Climbing Technique Step Over Step Number of Steps Climbed 3 Stair Climbing Set # Repetitions (reps) 2 Comments Stair Climbing Comments Pt states she has B rails at home and her family always present for [employer]/ CGA. Pt completed ascend with CGA and 1HHA on L UE for descend. M5 PT-IP Objective Assessments Start: 05/14/19 08:28 Freq: NEEDED Status: Active Protocol: Document 05/14/19 10:00 AW (Rec: 05/14/19 10:26 AW [id number]) Orientation Orientation/Cognition Level of Alertness Alert Orientation Name,Day of Week,Place, Situation Language Function Ability No Deficits Noted Safety Awareness Understands Safety Issues Memory Description No Deficits Noted Gross Range of Motion Lower Extremity ROM Assessment Within Functional Limits Strength Lower Extremity Strength Assessment Bilaterally Impaired Hip 4-/5 Knee 4/5 Ankle 4/5 Comments Strength Comments Strength symmetrical. Hip deficit likely related to abdominal pain. Coordination Assessment Gross Coordination Gross Coordination WNL Sensation Assessment Sensation Gross Sensation WNL Muscle Tone Muscle Tone WNL Yes M6 PT-IP Treatment Start: 05/14/19 08:28 Freq: NEEDED Status: Active Protocol: Document 05/15/19 14:08 AW (Rec: 05/15/19 14:20 AW [id number]) Physical Therapy Treatment Education Education Provided Precautions,Safety Other Treatments Other Treatment Performed Reviewed abdominal precautions and log roll for bed mobility . M7 PT-IP Assessment and Plan Start: 05/14/19 08:28 Freq: NEEDED Status: Active Protocol: Document 05/16/19 11:20 HH (Rec: 05/16/19 12:29 HH [id number]) PT Summary Assessment and Plan Potential Rehabilitation Potential Excellent Status of Condition at Evaluation Stable Summary Impairments Pain,Strength,Bed Mobility, Transfers,Gait,Activity Tolerance Progress Towards Goals Safe For Discharge Assessment Summary Nidhi cont to progress with amb distance and reduced assistance needed for stair climbing. Pt is at her baseline with slight increased time taken. She was able to complete all tasks SBA/ independently. Pt is safe to d /c home with family's assistance once she is medically stable. D/c from therapy today. Frequency of Treatment Frequency Of Treatment Discharge Recommendations To Nursing Amount of Assist Needed Standby Assistance Discharge Recommendations PT Discharge Recommendations Home with Assistance Transportation Needs at Discharge Private Vehicle
[2019-05-16] MEDS: OXYCODONE IR 5 MG TABLET PO (15:18)
--- NOTE | 2019-05-17 00:07 | PC.NURSE ---
Patient is alert and oriented. Breath sounds remain diminished but CTA with RA sat of 98%; discussed importance of deep breathing and use of I.S. to prevent post op pneumonia and patient verbalizes understanding. HRR. Denies nausea. Complains of pressure type pain in abdomen with severity of 5/10; medicated with scheduled Tylenol and patient aware she can also have Oxycodone if pain doesn't improve. Dressings to abdomen are CDI. 2 bandaid dressings also CDI. Denies dysuria, frequency or urgency with urination but does have urgency with bowel function. Has been having loose dark stools. Moving self in bed. Is able to get up to bathroom independently but requested patient to call for assistance during the night for safety purposes; patient agreeable. Declines use of SCD's so reminded to ankle wave. HOB is elevated to 30 degrees per MD order. Fall risk score is low but bed alarm activated for nighttime safety.
[2019-05-17] MEDS: ACETAMINOPHEN 325 MG TABLET 650 MG PO ×2 (06:03→12:27)
[2019-05-17 09:00] VITALS: BP 117/60; PULSE 79; RESP 16; TEMP 37.4; O2SAT 96
[2019-05-17] MEDS: SODIUM CHLORIDE 0.9% FLUSH 10 ML IV (09:35)
[2019-05-17] MEDS: PSYLLIUM HUSK 1 PACKET PO (09:35)
[2019-05-17] MEDS: HEPARIN 5,000 UNIT/ML VIAL 5000 UNIT SUBCUT (09:36)
[2019-05-17] MEDS: lisinopriL 10 MG TABLET PO (09:36)
[2019-05-17] MEDS: PANTOPRAZOLE 40 MG TABLET PO (09:36)
[2019-05-17] MEDS: PROPRANOLOL 40 MG TABLET 60 MG PO (09:36)
[2019-05-17] MEDS: LACTOBACILLUS ACIDOPHILUS TABLET 1 EACH PO (09:36)
[2019-05-17] MEDS: OXYCODONE IR 5 MG TABLET PO ×2 (09:39→15:25)
--- NOTE | 2019-05-17 10:27 | CM.DPNOTE ---
DCP Cont: Reviewed POC/DCP w/ Dr Gillette this AM; she is expecting that pt will DC home this afternoon w/family to assist, as planned. No SW needs anticipated at this time. RN HOSPICE will remain available in the case that DC needs or concerns arise. ANA Castano
--- NOTE | 2019-05-17 11:47 | P.DS_ITS ---
History of Present Illness History of Present Illness Chief complaint: [id number] Narrative: This is a 78-year-old woman with history of acid reflux, Coppola's esophagus, personal history of colon polyps, history of breast cancer, and a recent history of worsening weakness, fatigue, shortness of breath and hemog lobin of 6.8 -7.4 over the past few weeks. She has had about a 30 lb weight loss over the past year without any clear explanation. Today she had a colonoscopy and upper endoscopy. She was found to have low grade gastritis, and Coppola's esophagus, as well as a large, bleeding, nearly obstructing cancer in the right side of the colon. I discussed with the patient, her daughter Betsy (by phone) and Dr. Kerr (her primary doctor) regarding the appropriate management for this. Due to the severe anemia and high risk of obstruction I recommend we admit the patient, get a CT chest/abdomen/pelvis for staging, transfuse her, and go ahead to the OR in the AM tomorrow. ROS: Positive for fatigue, weight loss greater than 30 lb in a year, changes in vision, decreased exercise tolerance, shortness of breath, change in bowel habits, joint pain, dizziness, numbness, anxiety. Thirteen system review is otherwise negative other than as mentioned below and in HPI. PE: GENERAL: Alert, comfortable, pale. Appears stated age. Answers questions promptly and appropriately. Vital signs noted. HENT: Normocephalic, atraumatic. Hearing intact. Oral mucosa is pink and moist. EYES: Conjunctiva pink, sclera white, no periorbital swelling. CARDIOVASCULAR: Regular rate. No pedal edema. RESPIRATORY: Non-tachypneic, breathing comfortably on room air. GASTROINTESTINAL: Abdomen soft and non-distended GENITALURINARY: No flank tenderness. MUSCULOSKELETAL: Equal tone and mass bilaterally. SKIN: Warm, dry, soft, appropriate color for ethnicity. No other lesions, rashes, or wounds. NEURO: Alert and Oriented X 3. No gross sensory deficits, or cognitive issues. PSYCH: Appropriate affect and mood. Discharge Providers Provider Date of admission: 05/11/19 10:58 Discharge Date: 05/17/19 Primary care physician: Vesta Kerr DO Consults: 05/11/19 18:40 Consult to Discharge Planning Routine Comment: Consult to Physician Routine Comment: Consulting Provider: Vesta Kerr Reason for consultation: Pre op medical evaluation Has provider been notified: Yes 05/12/19 16:49 Consult to Discharge Planning Routine Comment: 05/13/19 14:46 Consult to Physical Therapy Evaluate & Treat Comment: UNSTEADY, NEED AMBULATE FOR POSTOP RECOVERY/DISPO Physician Instructions: Evaluate and Treat Discharge provider: Radha Gillette MD Summary Hospital Course Discharge Diagnosis: Acute blood loss anemia secondary to bleeding colon cancer, requiring transfusion and urgent surgery. Stage 2a colon cancer of the hepatic flexure Hospital Course: Patient came in on Tuesday for an urgent diagnostic colonoscopy, during which she was found to have a large bleeding cancerous mass in the hepatic flexure. She was admitted and transfused a total of 3 units of blood during her hospital stay. She was hydrated and taken to the OR urgently the next morning for emergency hemicolectomy. She recovered well from surgery, her Hgb stabilized, and she had return of bowel function gradually, as expected. She tolerated PO, pain was well controlled on PO pain meds, and she remained vitally stable. She ambulated well and was ready to discharge home on POD#5. Status at Discharge Cognitive/behavioral status at discharge: oriented and at baseline, oriented Functional status at discharge: independent ambulation Overall status at discharge: patient is progressing back to baseline Time Spent with Patient Time spent: Greater than 30 minutes Exam Vital Signs (past 8 hours): - 05/17/19 09:00 Temperature 99.4 F Pulse Rate 79 Respiratory Rate 16 Blood Pressure 117/60 Pulse Oximetry 96 Oxygen Delivery Method Room Air Oxygen Flow Rate 0 Narrative Exam Narrative: GENERAL: Alert, oriented, comfortable. Appears stated age. Answers questions promptly and appropriately. Vital signs noted. HENT: Normocephalic, atraumatic. Hearing intact. Oral mucosa is pink and moist. EYES: Conjunctiva pink, sclera white, no periorbital swelling. CARDIOVASCULAR: Regular rate. No pedal edema. RESPIRATORY: Non-tachypneic, breathing comfortably on room air. GASTROINTESTINAL: Abdomen soft and non-distended; appropriate TTP with incisions c/d/i/a GENITALURINARY: No flank tenderness. MUSCULOSKELETAL: Equal tone and mass bilaterally. SKIN: Warm, dry, soft, appropriate color for ethnicity. No other lesions, rashes, or wounds. NEURO: Alert and Oriented X 3. No gross sensory deficits, or cognitive issues. PSYCH: Appropriate affect and mood. Objective Labs Result Diagrams: 05/15/19 11:24 05/16/19 05:35 Discharge Plan Discharge Plan Patient Disposition: Home Discharge comment: Drink plenty of water to keep yourself hydrated. If you feel dry mouth or notice your urine becomes darker, increase your fluid intake. Avoid eating foods that are hard to digest, including uncooked vegetables, fruit peels, and hard meats such as steak and pork. You will receive a copy of Low Residue diet recommendations that will give more specifics about this. Take a probiotic twice daily such as Culturelle, or Lactobacillus which you can purchase at a pharmacy. Or you may take a serving of yogurt with active cultures twice daily. If you are having copious loose stool, you may take an over the counter anti- diarrheal medication such as Immodium. Please use caution with this medication, as over use of it can cause constipation. Start with a single dose, and wait to see how it impacts your bowels before taking multiple doses. If you continue to have copious or unmanagable loose stool, you may take Immodium 2mg two to three times per day, and closely observe the response. If you become constipated, do not take any more immodium and call [facility] to speak with the injection machine operator doctor. Take Metamucil (or other fiber supplement such as Benefiber) 2tspn in 8 oz water twice daily -- may go up to three times daily if needed If you become constipated, use Docusate (over the counter) twice daily or Miralax (over the counter) as needed. You may take Tylenol for pain, as needed. Do not take more than 3000mg of Tylenol in 24 hours. You may take prescription oxycodone as needed for pain, but remember that it can cause constipation. Keep active with light activity such as gentle exercise and taking walks. Avoid lifting over 10lbs, abdominal core work, or very strenuous activity. Avoid being sedentary for prolonged periods. You may shower. After showering, pat dry your incisions and replace a dry dressing over your incisional wounds as needed. If you notice any redness or drainage from the wounds, call our office and speak to Dr. Gillette, or the doctor injection machine operator. Keep a dry gauze dressing over your prior drain site, and change it twice a day as needed if it becomes saturated, to keep the wound dry. If you have any other concerns about your surgery or post operative care, please call the surgeon's office number and speak to the office nurse or the surgeon injection machine operator. If you become severely ill with significant chest pain, shortness of breath, significant bleeding, or other life threatening symptoms, please call 911 or go to the ER right away. The nurse will send you home with a staple remover in case you are unable to come in to have your krissy removed in the office. Krissy should not be removed until at least two weeks after your surgery. Please contact [facility] office and communicate with the nurses prior to removing krissy you rself. We can provide you with instructions and coaching to assist with this process. If you need to reach Dr. Gillette with a non-urgent message, you may contact her by email: [email or web address]. Discharge orders & Medications Prescriptions: New lisinopril 10 mg Tablet 10 mg PO DAILY Qty: 30 RF: 1 oxycodone 5 mg tablet 5 mg PO Q4H PRN (Reason: pain, moderate) Qty: 20 RF: 0 Culturelle 10 billion cell capsule 1 cap PO BID Qty: 60 RF: 0 Continued MULTIVITAMIN (#MULTIPLE VITAMINS) 1 cap PO Q DAY Qty: 0 RF: 0 Qvar 80 MCG/PUFF aerosol 1 puff INH BID Qty: 1 RF: 5 propranolol 60 mg tablet 60 mg PO BID Qty: 60 RF: 1 omeprazole 40 mg capsule,delayed release(DR/EC) 40 mg PO BID Qty: 180 RF: 1 clonazepam [Klonopin] 0.5 mg tablet 0.5 mg PO HSP PRN (Reason: anxiety) Qty: 30 RF: 1 albuterol sulfate [Proventil HFA] 90 mcg/actuation HFA aerosol inhaler 1 inhalation Inhalation Q3HP PRN (Reason: shortness of breath or wheezing) Qty: 1 RF: 1 Discontinued ferrous sulfate [Iron (ferrous sulfate)] 325 MG tablet 325 mg PO BID Qty: 60 RF: 1 Hold Instructions: starting intravenous Follow up/Referrals: Radha Gillette MD [Physician] - (Follow up with Dr. Gillette at [facility] during the week of May 27-. You may communicate with Dr. Gillette by phone and email rather than coming in person if you are doing well and prefer to avoid coming in. You will need a referral to medical oncology as well. ) Vesta Kerr DO [Primary Care Provider] - Diet/Activity/Treatments Diet: Diet as Tolerated Diet comment: Low residual diet Skin/Wound/Dressing Care Report to your healthcare provider any signs of infection, such as:: chills, fever, night sweats, increased pain, unusual drainage and unusual redness Visit Report/Discharge Packet Instructions: Low-Fiber/Low-Residue Diet, DI for Postoperative Pain, DI for Prescription Opioid Use, Oxycodone, How to Care for a Surgical Wound-[place], [facility]: Wound Care Stand Alone Forms: Colonoscopy Result: [facility], EGD Result: [facility] Discharge Data Primary Care Provider: Vesta Kerr Quality VTE Deep Vein Thrombosis/Pulmonary Embolism Present on Admission: No
[2019-05-17 12:00] VITALS: BP 126/59; PULSE 79; RESP 18; TEMP 37.3; O2SAT 97
--- NOTE | 2019-05-17 14:06 | PC.NURSE ---
Day SHift- Pt A&OX4, able to make needs known using call light. Reports abd pain to mid abd 5/10. Upon review of pain management plan, PRN Oxycodone 2.5mg given at 0940 with good effect. Pain level decreased to 2-3/10. Pt tolerating diet. Per Dr. Gillette this morning, pt is to be given Staple remover kit to bring home with her and staple removal instructions faxed to unit by Dr. Gillette/office to given to pt as handout. Low Residue diet added to pt's discharge as well per Dr. Gillette request. Abd dressings CDI, RLQ Abd dressing of previous drain site CDI, Per Dr. Gillette, ok to take dressings off for shower, may place loose gauze dressing overs incision sites if needed for drainage or rubbing on clothes. This information relayed to pt as well. Pt's daughter will be picking up pt around 1630 today.
--- NOTE | 2019-05-17 16:51 | PC.NURSE ---
1600 - Discharge instructions reviewed with patient. Spoke with patient's daughter on the phone and reviewed discharge information with her as well. Pt IV d/c'd. Pt with steady gait. Discharged via wheelchair to private vehicle, with daughter. Discharge instruction reviewed again with patient's daughter. Questions answered.
== END 2019-05-17 16:30 | disposition home or self-care (01) | DRG 329 ==
LOC: OR 14:56 → AC 17:10
PROVIDERS: Anesthesiology; Admitting Provider Surgery; PCP Family Medicine; Referring Provider Family Medicine; Visit Provider Surgery
PROC: 0DJ08ZZ Inspection of Upper Intestinal Tract, Via Natural or Artificial Opening Endoscopic (ICD-10-PCS; CPT 43235; 2019-05-11 13:15)
PROC: 0DJD8ZZ Inspection of Lower Intestinal Tract, Via Natural or Artificial Opening Endoscopic (ICD-10-PCS; CPT 45378; 2019-05-11 13:15)
PROC: 0DTE0ZZ Resection of Large Intestine, Open Approach (ICD-10-PCS; principal; 2019-05-12 09:00)
DX: C18.2 Malignant neoplasm of ascending colon (principal); E43 Unspecified severe protein-calorie malnutrition; K56.609 Unspecified intestinal obstruction, unspecified as to partial versus complete obstruction; D62 Acute posthemorrhagic anemia; K29.70 Gastritis, unspecified, without bleeding; K22.70 Barrett's esophagus without dysplasia; K29.80 Duodenitis without bleeding; I10 Essential (primary) hypertension; F41.9 Anxiety disorder, unspecified; J45.909 Unspecified asthma, uncomplicated; R41.0 Disorientation, unspecified; T40.2X5A Adverse effect of other opioids, initial encounter; Y92.230 Patient room in hospital as the place of occurrence of the external cause; Z85.3 Personal history of malignant neoplasm of breast; Z80.0 Family history of malignant neoplasm of digestive organs
CPT/HCPCS: 36415; 36430; 43239; 44204; 45381; 71260; 74177; 80048; 82378; 82728; 83540; 83550; 83735; 85025; 85610; 86850; 86900; 86901; 93005; 94760; 94762; 97110; 97116; 97161; 99231; 99232; 99253; P9016; A9270; C9290; J0131; J0330; J1100; J1170; J1644; J2250; J2405; J2543; J2704; J3010; J3480

== ENCOUNTER → 2019-09-13 12:05 | Outpatient (CLI) | payer OTHER, SELFPAY ==
[2019-05-11 16:48] VITALS: BMI 25.6
[2019-09-13 12:32] LABS: Alanine Aminotransferase 36 IU/L (<35); Albumin Globulin Ratio 1.3 (1.0-2.8); Alkaline Phosphatase 100 U/L (38-126); Aspartate Aminotransferase 31 IU/L (14-36); BUN Creatinine Ratio 16.9 (6-22); Bilirubin Total 0.6 mg/dL (0.2-1.3); Blood Urea Nitrogen 13 mg/dL (7-17); Calcium 9.3 mg/dL (8.4-10.2); Carbon Dioxide 28 mmol/L (22-32); Chloride 103 mmol/L (98-107); Estimated Glomerular Filt Rate > 60.0 mL/min (>60); Globulin 3.2 g/dL (1.7-4.1); Glucose 93 mg/dL (80-110); HEMOLYSIS < 15 (0-50); Potassium 4.6 mmol/L (3.4-5.1); Sodium 135 mmol/L (137-145); Total Protein 7.2 g/dL (6.3-8.2)
--- NOTE | 2019-09-13 12:53 | DI.CT.S_ITS ---
PROCEDURE: CT ABDOMEN WO/W CON INDICATIONS: colon cancer, 8 mm lesion in liver TECHNIQUE: 4 phase scanning was performed. Non-contrast 5 mm axial sections acquired from the diaphragm to the iliac crests. Following the administration of intravenous contrast, 5 mm thick arterial-phase, portal venous-phase, and 5-minute delayed phase images were acquired through the liver. 5 mm thick coronal and sagittal reformats were performed. For radiation dose reduction, the following was used: automated exposure control, adjustment of mA and/or kV according to patient size. COMPARISON: [facility], CT, CT CHEST ABD PEL W CON, 05/11/2019, 15:48. FINDINGS: Image quality: Excellent. Lung bases: Lung bases are clear. Heart size is normal. Liver: Within the right posterior hepatic segment centered ozzie series 2, image 16 there is a hypodensity there is ovoid, and has not changed in size from the initial CT available that covers this area, dated 05/11/19. This structure is still measures approximately 6 x 9 mm, shows no appreciable enlargement, and is considered most likely a benign cyst that is too small to accurately characterize by CT scanning. Other solid organs: Gallbladder contains a small calcified stone, without evidence of acute cholecystitis or biliary obstruction. Multiple additional noncalcified gallstones appear present within the gallbladder lumen.. Biliary system is non dilated. Pancreas is normal in morphology. Spleen is normal in size and enhancement. No adrenal nodules. Both kidneys demonstrate normal size and enhancement, without hydronephrosis or nephrolithiasis. Nodes and vessels: No retroperitoneal or mesenteric adenopathy by size criteria. Aorta and inferior vena cava are normal in size. Bowel and peritoneum: Unenhanced bowel loops are normal in caliber. No free fluid or air. Bones: No suspicious bony lesions. No vertebral body compression fractures. Miscellaneous: No ventral hernias. IMPRESSION: 1. Interval partial colectomy resecting the colonic mass identified at the right colon near the hepatic flexure. 2. Multiple small gallstones within the gallbladder lumen, the large majority of which are noncalcified. 3. Ovoid hypodensity right posterior hepatic segment mid liver level, most consistent with a small ovoid cyst too small to accurately characterize by CT scanning. Follow-up attention to this structure on subsequent CT scanning is anticipated. Dictated by: Quinten Estes M.D. on 09/13/2019 at 14:21 Approved by: Quinten Estes M.D. on 09/13/2019 at 14:29
[2019-09-13 13:03] LABS: Add Manual Diff / Slide Review NO; Basophils Absolute Auto 100 /uL (0-100); Basophils Percent Auto 1.1 % (0-2); Carcinoembryonic Antigen 0.8 ng/mL (0.1-3.0); Eosinophils Absolute Auto 300 /uL (0-450); Eosinophils Percent Auto 4.2 % (2-4); Hematocrit 36.3 % (36-46); Hemoglobin 11.9 g/dL (12.0-16.0); Lymphocytes Absolute Auto 1700 /uL (1100-4500); Mean Corpuscular HGB Conc 32.6 % (30-36); Mean Corpuscular Hemoglobin 28.3 PG (26-34); Mean Corpuscular Volume 86.6 fL (80-100); Monocytes Absolute Auto 400 /uL (0-900); Monocytes Percent Auto 6.5 % (3-14); Neutrophils Absolute Auto 3700 /uL (1500-7000); Neutrophils Percent Auto 60.2 % (50-75); Platelet Count 309 X10^3/uL (150-400); Red Cell Distribution Width 14.2 % (11.6-14.8); White Blood Cell Count 6.1 X10^3/uL (4.5-11.0)
== END ==
PROVIDERS: PCP Family Medicine; Referring Provider Internal Medicine Hematology & Oncology; Visit Provider Internal Medicine Hematology & Oncology
DX: C18.9 Malignant neoplasm of colon, unspecified (principal); K76.9 Liver disease, unspecified; D50.9 Iron deficiency anemia, unspecified; K29.70 Gastritis, unspecified, without bleeding; K80.20 Calculus of gallbladder without cholecystitis without obstruction; Z90.49 Acquired absence of other specified parts of digestive tract
CPT/HCPCS: 36415; 74170; 80053; 82378; 85025; Q9967

== ENCOUNTER → 2019-09-18 14:25 | Outpatient (CLI) | payer OTHER, SELFPAY ==
[2019-05-11 16:48] VITALS: BMI 25.6
== END ==
PROVIDERS: PCP Family Medicine; Referring Provider Family Medicine; Visit Provider Internal Medicine Hematology & Oncology
DX: C18.3 Malignant neoplasm of hepatic flexure (principal)
CPT/HCPCS: 36415

== ENCOUNTER → 2020-03-31 12:48 | Outpatient (CLI) | payer OTHER, SELFPAY ==
[2019-09-19 09:41] VITALS: BMI 25.6
--- NOTE | 2020-03-31 12:49 | DI.RAD.S_ITS ---
PROCEDURE: XR DEXA AXIAL SKELETON INDICATIONS: Osteopenia COMPARISON: None. FINDINGS: This blank DEXA report has been sent in error by the PACS system. The correct and complete report will be forthcoming in 1-2 days. Thank you for your patience and understanding. Dictated by: Vini Sullivan M.D. on 03/31/2020 at 17:17 Approved by: Vini Sullivan M.D. on 03/31/2020 at 17:18
== END ==
PROVIDERS: PCP Family Medicine; Referring Provider Family Medicine; Visit Provider Family Medicine
DX: M81.0 Age-related osteoporosis without current pathological fracture (principal); Z78.0 Asymptomatic menopausal state; Z85.3 Personal history of malignant neoplasm of breast; Z85.038 Personal history of other malignant neoplasm of large intestine; Z87.891 Personal history of nicotine dependence
CPT/HCPCS: 77080

== ENCOUNTER → 2020-04-10 15:35 | Outpatient (CLI) | payer OTHER, SELFPAY ==
[2019-09-19 09:41] VITALS: BMI 25.6
--- NOTE | 2020-04-10 | DI.MG.S_ITS ---
UNILATERAL RIGHT DIGITAL SCREENING MAMMOGRAM 3D/2D WITH CAD POST MASTECTOMY: 04/10/2020 CLINICAL: Routine screening. Personal history of left breast cancer. Family history of breast cancer. Comparison is made to exams dated: 04/21/2018 mammogram, 03/16/2017 mammogram, and 11/21/2014 mammogram - [facility]. The tissue of right breast is heterogeneously dense. This may lower the sensitivity of mammography. Current study was also evaluated with a Computer Aided Detection (CAD) system. There are benign calcifications in the right breast. There also are benign vascular calcifications in the right breast. No significant masses, calcifications, or other findings are seen in the breast. There has been no significant interval change. IMPRESSION: BENIGN There is no mammographic evidence of malignancy. A 1 year screening mammogram is recommended. This exam was interpreted at Station ID: [id number]. NOTE: For mammograms, a report in lay terms will be sent to the patient. Approximately 15% of breast malignancies will not be visualized mammographically. In the management of a palpable breast mass, a negative mammogram must not discourage biopsy of a clinically suspicious lesion. Electronically Signed By: Braulio montez/florentin:04/11/2020 09:57:55 letter sent: Normal Exam ACR BI-RADS Category 2: Benign Finding(s) 3342F
== END ==
PROVIDERS: PCP Family Medicine; Referring Provider Family Medicine; Visit Provider Family Medicine
DX: Z12.31 Encounter for screening mammogram for malignant neoplasm of breast (principal); Z85.3 Personal history of malignant neoplasm of breast; Z80.3 Family history of malignant neoplasm of breast
CPT/HCPCS: 77063; 77067

== ENCOUNTER → 2020-05-02 13:21 | Outpatient (CLI) | payer MEDICARE, SELFPAY ==
[2020-04-25 09:28] VITALS: BMI 25.6
[2020-05-02] MEDS: COVID-19 VACC, Ad26(JANSSEN)/PF 0.5 ML IM (13:32)
== END ==
PROVIDERS: PCP Family Medicine; Visit Provider Internal Medicine
DX: Z23 Encounter for immunization (principal)
CPT/HCPCS: 0031A; 91303

== ENCOUNTER → 2020-05-28 10:09 | Outpatient (CLI) | payer OTHER, SELFPAY ==
[2020-04-25 09:28] VITALS: BMI 25.6
[2020-05-28 11:07] LABS: COVID19 -Nasal RAPID Negative (Negative)
== END ==
PROVIDERS: PCP Family Medicine; Visit Provider Surgery
DX: Z20.822 Contact with and (suspected) exposure to COVID-19 (principal)
CPT/HCPCS: 87635; C9803

== ENCOUNTER 2020-05-29 09:35 | Day surgery (SDC) | payer OTHER, SELFPAY ==
[2020-04-25 09:28] VITALS: BMI 25.6
--- NOTE | 2020-05-29 | PATH_ITS ---
[facility] Accession Number: [id number] . 01 Material submitted: . PART A: stomach - STOMACH BIOPSY PART B: esophagus - ESOPHAGUS BIOPSY PART C: body - ILEOCOLONLIC ANASTOMOSIS PART D: colon - 25CM COLON POLYP X2 . 02 Diagnosis: A. Stomach, Biopsy: Antral and body-type mucosa with mild chronic gastritis. No evidence of Helicobacter on H/E stain. Negative for intestinal metaplasia. Negative for dysplasia and malignancy. . B. Esophagus, Biopsy: Specialized intestinal metaplasia consistent with Coppola's esophagus. Negative for dysplasia and malignancy. . C. Ileocolonic Anastomosis, Biopsy: Ulcerated enteric mucosa with reactive stromal and epithelial changes, consistent anastomotic site. Negative for active inflammation, granulomas, dysplasia and malignancy. . D. Colon, 25 cm, Polyp x2, Biopsies: Tubular adenomas. [facility] 06/02/2020 1435 Local . 02 Comment: A. An immunohistochemical stain will be performed to evaluate for Helicobacter organisms and the results reported as an addendum. . 02 Electronically signed: . Carine Angel MD, Pathologist NPI- [id number] . 01 Gross description: . A. Received in formalin and labeled with stomach biopsy are three fragments of cota soft tissue measuring 0.4 x 0.2 x 0.1 to 0.3 x 0.3 x 0.1 cm. All three fragments are entirely submitted in cassette A1. B. Received in formalin and labeled with esoph. biopsy is one fragment of cota soft tissue measuring 0.6 x 0.3 x 0.2 cm. The fragment is entirely submitted in cassette B1. C. Received in formalin and labeled with ileocolonic anastomosis are two fragments of cota soft tissue measuring 0.5 x 0.3 x 0.1 to 0.2 x 0.1 x 0.1 cm. One fragment of metal debris is also observed measuring 0.5 x 0.1 by less than 0.1 cm. The two fragments of tissue are entirely submitted in cassette C1. The fragment of metal debris will be held in formalin for further examination if desired. D. Received in formalin and labeled with 25 cm colon polyp x2 are two pieces of cota soft tissue measuring 0.5 x 0.5 x 0.4 to 0.4 x 0.4 x 0.3 cm. The first piece is inked blue, bisected and entirely submitted in cassette D1. The second piece is inked orange, bisected and entirely submitted in cassette D1. Cassette D1 contains a total of four pieces. ([id number]) /MRV 05/30/2020 0926 Local . 02 Pathologist provided ICD-10: K22.70, D12.6 . 02 CPT . 211389, 229659, 488767, 999690, [id number] Performed at: [address] [facility] [address] [id number] MD Salo Up MD Phone: [phone] Performed at: [address] [facility] [address] [place], [place] [id number] MD Carine Angel MD Phone: [phone]
[2020-05-29 09:56] VITALS: BP 128/70; PULSE 61; RESP 16; TEMP 37.2; O2SAT 99; BMI 25.8
[2020-05-29] MEDS: LACTATED RINGERS 1,000 ML 100 ML IV (10:25)
--- NOTE | 2020-05-29 10:30 | PM.PREOP ---
Pre-operative Note COVID-19 COVID-19 status: Negative Result date/Date tested (Pos, Neg/Pending): 05/28/20 Interval Note History & Physical reviewed/Exam performed by Physician: Yes Changes to H&P: No
--- NOTE | 2020-05-29 10:31 | P.OP.ENDO_ITS ---
Operative Date/Time/Diagnoses Date of procedure: 05/29/20 Time of procedure: 10:31 Pre-op diagnosis: History of Coppola's esophagus, history of colon cancer resected one year ago Procedure & Clinicians Study performed: Esophagogastroduodenoscopy Biopsies of stomach and distal esophagus with standard forceps Colonoscopy Same procedure as scheduled: Yes Indications: History of Coppola's esophagus, history of colon cancer resected one year ago. Due to her use of anxiolytic medications, and her medical fragility we have consulted anesthesiologist to provide deep sedation on propofol during this procedure. Surgeon: Radha Gillette Procedure Notes SCOAP/Timeout: Performed Procedure in detail: The patient was brought to the room and placed in left lateral decubitus position with all bony prominences padded. A bite block was positioned in the patient's mouth to protect the lips, teeth, and tongue for the procedure. A time-out was performed and then the patient was given deep sedation by the anesthesiologist. Once adequately sedated, the lubricated gastroscope was passed through the bite block and across the tongue and into the esophagus without incident. A tubular view of the esophagus was maintained as the scope was advanced through the esophagus and into the stomach. The scope was advanced through the stomach and to the pylorus. The scope was gently popped through the pylorus and into the duodenal bulb. The scope was flexed and advanced into the second and third portions of the duodenum. The duodenum and duodenal bulb appeared normal. The scope was withdrawn into the stomach. There was evidence of mild endoscopic gastritis seen in the stomach. Biopsies were taken. The scope was retroflexed and the gastric cardia was examined. There was a Hill grade 2-3 hiatal hernia. No ulcerations were seen. The scope was t hen straightened, and withdrawn into the esophagus. There was evidence of partially healed esophagitis in the lower 4 cm of the esophagus. This area was biopsied. The scope was then withdrawn through the esophagus with a tubular view. The scope was then withdrawn from the patient and attention was turned to the colonoscopy portion of the procedure. A rectal exam was performed revealing no abnormalities. The colonoscope was then introduced to the rectum and advanced to the ileocolic anastomosis. The terminal ileum was traversed for about 10 cm, and appeared consistent with normal ileal mucosa. The ileocolic anastomosis appeared patent, and no evidence of cancer recurrence was seen. Biopsies were taken. The scope was then retracted while rotating side to side and examining each mucosal fold. Two pedunculated polyps were seen at 25 cm in the rectum and were removed with hot snare. At the conclusion of the procedure retroflexion was performed and small grade 1-2 internal hemorrhoids without stigmata of bleeding were seen. The scope was then withdrawn from the rectum the procedure was concluded. The patient was awaken from anesthesia. She tolerated the procedure well and was transferred to the PACU in stable condition. Scope withdrawal time: 16 Findings: Coppola's esophagus, gastritis, hiatal hernia and polyp (Two polyps) Specimen(s): other (Biopsies of stomach, distal esophagus, ileocolic anastomosis, and 2 polyps) Complications: none Impression: Improving Coppola's esophagus, no evidence of cancer recurrence in the colon, 2 adenomatous appearing polyps found at 25 cm Post-procedure Recommendations: Colonscopy in 3 years (Depending on pathology results), EGD in 3 years (Depending on pathology results), Continue medication(s) (Continue taking omeprazole daily) and Other recommendation (Will contact patient with biopsy results and final recommendations for future surveillance endoscopy) Follow up: as needed Disposition: PACU
[2020-05-29 11:20] VITALS: BP 120/53; PULSE 60; RESP 16; TEMP 37.3; O2SAT 97
[2020-05-29 11:25] VITALS: BP 102/50; PULSE 60; RESP 16; O2SAT 100
[2020-05-29 11:30] VITALS: BP 118/51; PULSE 56; RESP 14; TEMP 36.9; O2SAT 100
[2020-05-29 11:42] VITALS: BP 121/55; PULSE 55; RESP 14; TEMP 36.7; O2SAT 99
== END 2020-05-29 11:54 | disposition home or self-care (01) ==
PROVIDERS: PCP Family Medicine; Referring Provider Family Medicine; Visit Provider Surgery
PROC: 0DJ08ZZ Inspection of Upper Intestinal Tract, Via Natural or Artificial Opening Endoscopic (ICD-10-PCS; CPT 43235; principal; 2020-05-29 10:45)
PROC: 0DJD8ZZ Inspection of Lower Intestinal Tract, Via Natural or Artificial Opening Endoscopic (ICD-10-PCS; CPT 45378; 2020-05-29 10:45)
DX: Z12.11 Encounter for screening for malignant neoplasm of colon (principal); Z85.038 Personal history of other malignant neoplasm of large intestine; K22.70 Barrett's esophagus without dysplasia; K44.9 Diaphragmatic hernia without obstruction or gangrene; K29.50 Unspecified chronic gastritis without bleeding; K64.0 First degree hemorrhoids; D12.6 Benign neoplasm of colon, unspecified
CPT/HCPCS: 45385; 45380; 43239

== ENCOUNTER → 2020-11-25 11:03 | Outpatient (CLI) | payer OTHER, SELFPAY ==
[2020-04-25 09:28] VITALS: BMI 25.6
--- NOTE | 2020-11-25 11:04 | DI.CT.S_ITS ---
PROCEDURE: CT CHEST WO CON INDICATIONS: lung nodules TECHNIQUE: Noncontrast 5 mm thick sections acquired from the pulmonary apices to the posterior costophrenic angles. 1 mm lung window, 5 mm thick coronal and sagittal and 7 mm axial MIP reformats were then acquired. For radiation dose reduction, the following was used: automated exposure control, adjustment of mA and/or kV according to patient size. COMPARISON: [facility], CT, CT CHEST ABD PEL W CON, 05/11/2019, 15:48. FINDINGS: Lungs: Scattered subsegmental atelectasis and/or scarring. No focal consolidation. Airway thickening in keeping with nonspecific bronchitis and/or reactive airways disease. 4 mm nodule seen in the right middle lobe is grossly unchanged dating back to 05/11/19. Questionable 5 mm nodular focus seen in the lingula on image 190/3 also unchanged and could be volume averaging with vessel. Pleura: No pleural effusion or pneumothorax. Heart: Trace pericardial effusion. Normal heart size. Chest nodes: Normal. Thyroid gland: Negative Aorta: Normal in size. Scattered atheromatous calcifications in the aorta. Pulmonary arteries: Normal. Esophagus: Normal. Upper abdomen and chest wall: Low-attenuation unchanged presumed subcentimeter left adrenal adenoma Bones: No compression fracture. Diffuse spondylitic changes and facet arthropathy. IMPRESSION: Overall, unchanged subcentimeter lingular and right middle lobe nodular foci, which is encouraging however recommend follow-up in [address] chest for definitive assessment. Trace pericardial effusion Presumed low-attenuation unchanged sub cm left adrenal adenoma Dictated by: Derek St M.D. on 11/25/2020 at 12:38 Approved by: Derek St M.D. on 11/25/2020 at 12:49
== END ==
PROVIDERS: PCP Family Medicine; Referring Provider Internal Medicine Hematology & Oncology; Visit Provider Internal Medicine Hematology & Oncology
DX: R91.1 Solitary pulmonary nodule (principal)
CPT/HCPCS: 71250

== ENCOUNTER → 2021-01-06 17:26 | Outpatient (CLI) | payer OTHER, SELFPAY ==
[2020-04-25 09:28] VITALS: BMI 25.6
--- NOTE | 2021-01-06 | DI.RAD.S_ITS ---
PROCEDURE: XR CHEST 2V INDICATIONS: cough TECHNIQUE: 2 views of the chest were acquired. COMPARISON: [facility], CR, CHEST 2 VIEW, 08/14/2008, 14:02. [facility], CT, CT CHEST ABD PEL W CON, 05/11/2019, 15:48. [facility], CT, CT CHEST WO CON, 11/25/2020, 11:10. FINDINGS: Surgical changes and devices: Left axillary clips are seen. Lungs and pleura: Lungs are clear. No pleural effusions or pneumothorax. Mediastinum: Mediastinal contours are normal. Heart size is normal. Bones and chest wall: No suspicious bony abnormalities. Age-appropriate bony degenerative changes are seen. Soft tissues appear unremarkable. IMPRESSION: No focal infiltrates are seen. The small lung nodules that can be seen by CT are not well seen by plain film. Dictated by: Derek Morrell M.D. on 01/06/2021 at 22:17 Approved by: Derek Morrell M.D. on 01/06/2021 at 22:18
[2021-01-06 18:15] LABS: COVID19 -Nasal RAPID POSITIVE (Negative)
== END ==
PROVIDERS: PCP Family Medicine; Referring Provider Nurse Practitioner Family; Visit Provider Nurse Practitioner Family
DX: Z20.822 Contact with and (suspected) exposure to COVID-19 (principal); R05.9 Cough, unspecified; R91.8 Other nonspecific abnormal finding of lung field
CPT/HCPCS: 71046; 87635

== ENCOUNTER → 2021-01-06 18:05 | Outpatient (CLI) | payer OTHER, SELFPAY ==
[2020-04-25 09:28] VITALS: BMI 25.6
== END ==
PROVIDERS: PCP Family Medicine; Referring Provider Nurse Practitioner Family; Visit Provider Nurse Practitioner Family
DX: R05.9 Cough, unspecified (principal); R91.8 Other nonspecific abnormal finding of lung field

== ENCOUNTER → 2021-05-21 10:34 | Outpatient (CLI) | payer OTHER, SELFPAY ==
[2020-04-25 09:28] VITALS: BMI 25.6
--- NOTE | 2021-05-21 10:35 | DI.CT.S_ITS ---
PROCEDURE: CT CHEST ABD PEL W CON INDICATIONS: colon cancer TECHNIQUE: After the administration of oral and intravenous contrast, axial sections acquired from the supraclavicular neck to the pubic symphysis. Coronal and sagittal reformats were performed. For radiation dose reduction, the following was used: automated exposure control, adjustment of mA and/or kV according to patient size. COMPARISON: [facility], CT, CT ABDOMEN WO/W CON, 09/13/2019, 13:20. [facility], CT, CT CHEST WO CON, 11/25/2020, 11:10. [facility], CR, XR CHEST 2V, 01/06/2021, 18:05. [facility], CT, CT CHEST ABD PEL W CON, 05/11/2019, 15:48. FINDINGS: Image quality: Excellent. CHEST: Lower Neck: No enlarged lymph nodes. Thyroid: Within normal limits. Axillae: No enlarged lymph nodes. Chest Wall: Unremarkable. Lungs and Airways: There is an approximately 5 mm nodule again seen within the lingula, as on series 3, image 186. A 3-4 mm nodules again seen within the right middle lobe laterally, which is also stable. No new pulmonary nodules are seen. No focal infiltrates are seen. Pleura: No pneumothorax or pleural effusions. Heart: Heart size is normal. There is a trace pericardial effusion. Thoracic Vessels: The aorta and pulmonary arteries demonstrate normal size. Mediastinum and Cathi: No enlarged lymph nodes. Esophagus: No wall thickening. There is a small to moderate hiatal hernia. ABDOMEN: Liver: Unremarkable. Gallbladder: Layering gallstones are seen. Biliary ducts: Unremarkable. Pancreas: Unremarkable. Spleen: The spleen measures near the upper limits of normal for size, is not enlarged. Adrenal Glands: A fat containing left adrenal adenoma is again seen, as on series 2, image 58 measuring 18 mm. The right adrenal gland is unremarkable. Kidneys and Ureters: Unremarkable. Stomach and Bowel: Right hemicolectomy change can be seen. Stomach, small bowel loops, and colon are unremarkable. Peritoneum: No abnormal intraperitoneal fluid. No free air. Ventral Wall: There is a mild ventral wall hernia seen, which contains 1 wall of nondilated colon. Abdominal Nodes: No retroperitoneal or mesenteric adenopathy by size criteria. Vessels: Aorta and inferior vena cava are normal in size. Atherosclerotic calcification is noted. PELVIS: Pelvic Organs: The uterus demonstrates calcified fibroids. No adnexal masses are seen. Bladder: Unremarkable. Pelvic Nodes: No enlarged lymph nodes. Miscellaneous: No inguinal hernias are seen. Bones: Focal L5-S1 degenerative change is seen. Milder degenerative changes are seen elsewhere. Mild dextroconvex scoliotic curvature is seen. IMPRESSION: Small pulmonary nodules are seen, which are stable over time. Ventral hernia, which contains 1 wall of nondilated colon. Right hemicolectomy change. Incidental note is made of: Trace pericardial effusion, as before Small to moderate hiatal hernia Layering gallstones Fat containing left adrenal adenoma Spleen near the upper limits of normal for size Calcified uterine fibroids Focal L5-S1 degenerative change Dextroconvex scoliotic curvature Dictated by: Derek Morrell M.D. on 05/21/2021 at 16:02 Approved by: Derek Morrell M.D. on 05/21/2021 at 16:11
== END ==
PROVIDERS: PCP Family Medicine; Referring Provider Internal Medicine Hematology & Oncology; Visit Provider Internal Medicine Hematology & Oncology
DX: C18.9 Malignant neoplasm of colon, unspecified (principal); R91.8 Other nonspecific abnormal finding of lung field; Z90.49 Acquired absence of other specified parts of digestive tract
CPT/HCPCS: 71260; 74177

== ENCOUNTER 2021-09-05 20:14 | Inpatient (IN) | payer OTHER, SELFPAY ==
[2020-04-25 09:28] VITALS: BMI 25.6
[2021-09-05] VITALS (12 sets, daily range): BP systolic 154–215; BP diastolic 70–99; PULSE 55–83; RESP 18–37; O2SAT 84–96
--- NOTE | 2021-09-05 20:18 | DI.RAD.S_ITS ---
PROCEDURE: XR KNEE LT 3V INDICATIONS: fall TECHNIQUE: 3 views of the knee were acquired. COMPARISON: None. FINDINGS: Bones: No fractures or dislocations. No suspicious bony lesions. Quality of visualization is limited by body habitus and overlying degenerative knee joint osteoarthritis. Apparent old healed proximal fibular fracture. Soft tissues: Suspect small joint effusion. No suspicious soft tissue calcifications. IMPRESSION: Limited quality visualization, suspect small knee joint effusion. Degenerative changes, old healed proximal fibular fracture. Depending on the clinical status follow-up by MR scanning may become necessary. Dictated by: Quinten Estes M.D. on 09/05/2021 at 20:53 Approved by: Quinten Estes M.D. on 09/05/2021 at 20:54
--- NOTE | 2021-09-05 20:18 | DI.RAD.S_ITS ---
PROCEDURE: XR SHOULDER LT MIN 2V INDICATIONS: fall TECHNIQUE: 3 views of the shoulder were acquired. COMPARISON: [facility], CT, CT CHEST WO CON, 11/25/2020, 11:10. [facility], CR, XR CHEST 2V, 01/06/2021, 18:05. [facility], CT, CT CHEST ABD PEL W CON, 05/21/2021, 10:55. [facility], CR, SHOULDER MINIMUM 2VIEW RIGHT, 01/19/2014, 17:01. FINDINGS: Bones: No definite acute fractures or dislocations however there is distortion of the morphology of the humeral head and neck area on the left suggestive old healed fracture.. No suspicious bony lesions. Visualized ribs appear intact. Soft tissues: No suspicious soft tissue calcifications. IMPRESSION: Old healed fracture left shoulder at the humeral head/neck area, without definite acute superimposed injury. Mild distortion of this area has been documented on prior imaging, see reference comparison studies above. Dictated by: Quinten Estes M.D. on 09/05/2021 at 20:50 Approved by: Quinten Estes M.D. on 09/05/2021 at 20:52
--- NOTE | 2021-09-05 22:22 | DI.RAD.S_ITS ---
PROCEDURE: XR CHEST 1V INDICATIONS: Flu like symptoms TECHNIQUE: One view of the chest was acquired. COMPARISON: [facility], [place], XR CHEST 2V, 01/06/2021, 18:05. [facility], [place], CHEST 2 VIEW, 08/14/2008, 14:02. FINDINGS: Surgical changes and devices: None. Lungs and pleura: Lungs are mildly abnormal with a mild interstitial prominence previously present. No pleural effusions or pneumothorax. Mediastinum: Mediastinal contours appear normal. Heart size is normal. Bones and chest wall: No suspicious bony lesions. Overlying soft tissues appear unremarkable. IMPRESSION: Mild chronic interstitial prominence, no definite pneumonia seen. Dictated by: Quinten Estes M.D. on 09/05/2021 at 22:50 Approved by: Quinten Estes M.D. on 09/05/2021 at 22:51
[2021-09-05 22:36] LABS: Add Manual Diff / Slide Review NO; Basophils Absolute Auto 100 /uL (0-100); Basophils Percent Auto 0.6 % (0-2); Eosinophils Absolute Auto 0 /uL (0-450); Eosinophils Percent Auto 0.4 % (2-4); Hematocrit 39.9 % (36-46); Hemoglobin 13.5 g/dL (12.0-16.0); Lymphocytes Absolute Auto 600 /uL (1100-4500); Lymphocytes Percent Auto 5.1 % (25-40); Mean Corpuscular HGB Conc 33.8 % (30-36); Mean Corpuscular Hemoglobin 30.6 PG (26-34); Mean Corpuscular Volume 90.5 fL (80-100); Monocytes Absolute Auto 300 /uL (0-900); Monocytes Percent Auto 2.3 % (3-14); Neutrophils Absolute Auto 10900 /uL (1500-7000); Neutrophils Percent Auto 91.6 % (50-75); Platelet Count 262 X10^3/uL (150-400); Red Blood Cell Count 4.41 X10^6/uL (4.0-5.2); Red Cell Distribution Width 13.1 % (11.6-14.8); White Blood Cell Count 11.9 X10^3/uL (4.5-11.0)
--- NOTE | 2021-09-05 22:36 | DI.CT.S_ITS ---
PROCEDURE: CT CHEST ABD PEL W CON INDICATIONS: fall down 10 stairs TECHNIQUE: After the administration of intravenous contrast, 5 mm thick sections acquired from the lung apices to the symphysis. 5 mm coronal and sagittal reformats were performed, with additional 7 mm MIP reformats through the lungs. For radiation dose reduction, the following was used: automated exposure control, adjustment of mA and/or kV according to patient size. COMPARISON: [facility], CT, CT CHEST ABD PEL W CON, 05/21/2021, 10:55. [facility], CT, CT CHEST ABD PEL W CON, 05/11/2019, 15:48. FINDINGS: Image quality: Excellent. CHEST: Lungs and pleura: No acute airspace opacities. No pleural effusions or pneumothorax. Central and peripheral airways appear patent and normal in caliber. Mediastinum: Heart size is normal. No pericardial effusion. No mediastinal or hilar adenopathy by size criteria. Thoracic aorta and central pulmonary arteries are normal in size. Esophagus is normal in caliber. No hiatal hernia. Chest wall: No axillary or supraclavicular adenopathy by size criteria. Thyroid gland appears normal where well seen . ABDOMEN: Solid organs: Liver is normal in size and enhancement. Gallbladder appears normal . Biliary system is non dilated. Pancreas enhances normally. Spleen is normal in size and enhancement. No adrenal nodules. Kidneys demonstrate normal size and enhancement, without hydronephrosis. Peritoneum and bowel: Bowel loops demonstrate normal wall thickness and caliber. No free fluid or air. Nodes and vessels: No retroperitoneal or mesenteric adenopathy by size criteria. Aorta and inferior vena cava are normal in size. Miscellaneous: A previously present ventral hernia in the periumbilical region allows small bowel to herniate into the subcutaneous fat at midline, but there is no sign of incarceration strangulation involving the small bowel loop extends into that area. PELVIS: Genitourinary: Bladder wall thickness is normal. Miscellaneous: No inguinal hernias or adenopathy. Bones: No suspicious bony lesions. No vertebral body compression fractures. IMPRESSION: No trauma found. Periumbilical ventral hernia of small bowel, without evidence of incarceration or strangulation. Note: Prior CT 05/21/21 had identified a prominence within the lingular segment left upper lobe which appears to represent a confluence of 3 vessels branching from 1. Dictated by: Quinten Estes M.D. on 09/05/2021 at 23:58 Approved by: Quinten Estes M.D. on 09/06/2021 at 0:01
--- NOTE | 2021-09-05 22:36 | DI.RAD.S_ITS ---
PROCEDURE: XR ELBOW LT 2V INDICATIONS: fall, pain TECHNIQUE: Two views of the elbow were acquired. COMPARISON: None. FINDINGS: Bones: No fractures or dislocations. No suspicious bony lesions. Soft tissues: No elbow joint effusion. No suspicious soft tissue calcifications. IMPRESSION: Somewhat light film technique, no definite acute trauma found. Dictated by: Quinten Estes M.D. on 09/05/2021 at 23:56 Approved by: Quinten Estes M.D. on 09/05/2021 at 23:57
--- NOTE | 2021-09-05 22:37 | DI.CT.S_ITS ---
PROCEDURE: CT CERVICAL SPINE WO CON INDICATIONS: fall down 10 stairs, neck pain TECHNIQUE: Noncontrast 3 mm thick sections acquired from the skull base to the T4 level. Sagittal and coronal reformats were then constructed. For radiation dose reduction, the following was used: automated exposure control, adjustment of mA and/or kV according to patient size. COMPARISON: None. FINDINGS: Image quality: Excellent. Bones: No fractures or dislocations. Visualized superior ribs are intact. Soft tissues: Prevertebral soft tissues are normal in thickness. No paravertebral hematomas. No apical pneumothoraces. IMPRESSION: No trauma found. Dictated by: Quinten Estes M.D. on 09/05/2021 at 23:57 Approved by: Quinten Estes M.D. on 09/05/2021 at 23:57
--- NOTE | 2021-09-05 22:37 | DI.CT.S_ITS ---
PROCEDURE: CT HEAD/BRAIN WO CON INDICATIONS: fall down 10 stairs, confusion TECHNIQUE: Noncontrast 4.5 mm thick angled axial sections acquired from the foramen magnum to the vertex, with coronal and sagittal reformats. For radiation dose reduction, the following was used: automated exposure control, adjustment of mA and/or kV according to patient size. COMPARISON: None. FINDINGS: Image quality: Excellent. CSF spaces: Basal cisterns are patent. No extra-axial fluid collections. The ventricles are symmetric in size and shape. Brain: No intracranial bleeds or masses. There is cerebral volume loss for age, with resultant ventricular and sulcal prominence. There are periventricular and deep white matter chronic small vessel ischemic changes. There is intracranial internal carotid artery atherosclerosis. Skull and face: Calvarium and visualized facial bones appear intact, without suspicious lesions. Sinuses: Visualized sinuses and mastoids are generally abnormal, with chronic appearing opacification and reduced volume involving the right maxillary sinus, and opacification of the left sphenoid sinus and bilateral ethmoid air cells.. IMPRESSION: No trauma found. Chronic sinusitis involving the right maxillary sinus and ethmoid air cells. Also, the right sphenoid sinus. Dictated by: Quinten Estes M.D. on 09/05/2021 at 23:47 Approved by: Quinten Estes M.D. on 09/05/2021 at 23:48
--- NOTE | 2021-09-05 22:39 | ED_ITS ---
HPI - Fall General Chief Complaint: Fall Stated Complaint: fall down 10 steps/ No thinners Time Seen by Provider: 09/05/21 22:22 Source: patient Mode of arrival: EMS History of Present Illness HPI Narrative: 80-year-old woman with history of recently diagnosed colon cancer, anxiety and depression, high blood pressure who was in her home today, stumbled and fell down 10 stairs. There is no overt loss of consciousness, obvious fracture or significant lacerations however her daughter does describe significant confusion after the fall. She is complaining of left upper chest left arm and left knee pain. She reports that she has otherwise been doing well with no recent fevers, cough, chills. She has had some recent weight loss with workup that led to the diagnosis of colon cancer,. She is not complaining of nausea, headache, vomi ting, chest pain or palpitations. Related Data Home Medications Medication Instructions Recorded Confirmed MULTIVITAMIN (#MULTIPLE VITAMINS) 1 cap PO Q DAY ##0 05/07/11 06/24/21 Lactobacillus acidophilus 10 1 cell DAILY 10/18/19 06/24/21 billion cell capsule (Probiotic) Previous Rx's Medication Instructions Recorded inhalational spacing device #1 ea 06/25/19 (Flexichamber spacer) citalopram 40 mg tablet See Rx Instructions .Route 11/05/20 .COMPLEX #90 tabs propranolol 60 mg tablet 60 mg PO BID #180 tabs 12/09/20 albuterol sulfate 90 mcg/actuation 1 puff inhalation Q3-4H PRN 03/30/21 aerosol inhaler shortness of breath or wheezing #6.7 grams clonazepam 0.5 mg tablet 0.5 mg PO BEDTIME PRN anxiety, 03/30/21 insomnia 30 days #30 tabs omeprazole 40 mg capsule,delayed See Rx Instructions .Route 08/17/21 release .COMPLEX #90 caps Allergies Allergy/AdvReac Type Severity Reaction Status Date / Time No Known Drug Allergies Allergy Verified 06/24/21 10:21 Review of Systems Review of Systems Narrative: Remainder of complete review of systems is otherwise unremarkable except for that included in the HPI. 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) Centrilobular emphysema Colitis (~2009) Colon cancer (~04/2019) Essential hypertension (05/06/11) Family history of alcoholism Family history of colon cancer Gastritis History of colitis (~2009) History of malignant neoplasm of left breast (2008) Iron deficiency anemia (07/30/15) Malignant neoplasm of skin of nose (02/15/14) Multiple pulmonary nodules Nontoxic uninodular goiter (02/15/14) Osteopenia (01/10/14) Symptomatic anemia Tooth ache Weight loss Surgical History H/O right hemicolectomy (~04/2019) History of cataract removal with insertion of prosthetic lens (05/11/11) History of cataract removal with insertion of prosthetic lens (04/27/11) History of esophagogastroduodenoscopy (EGD) (07/08/16) History of esophagogastroduodenoscopy (EGD) (~07/2017) History of mastectomy, subtotal (~2008) Status post breast biopsy (08/06/08) Status post breast lumpectomy (08/20/08) Status post colonoscopy (~08/2009) Status post colonoscopy (03/2015) Status post partial mastectomy (08/28/08) Family History Brother Heart disease Colon cancer Brother COPD (chronic obstructive pulmonary disease) Child Age: 52 Skin cancer Father CAD (coronary artery disease) Grandfather Stroke Mother Congestive heart failure Tobacco use disorder Cancer Sister Hypertension Breast cancer Daughter Breast cancer Social History marital status: unknown household members: children occupational status: previously employed Smoking Status: Former smoker alcohol intake: former Smoking Status: Former smoker Substance Use Type: does not use Exam Initial Vital Signs Initial Vital Signs: Vital Signs Pulse Rate 55 L 09/05/21 20:11 Respiratory Rate 18 09/05/21 20:11 Blood Pressure 154/70 H 09/05/21 20:11 Pulse Oximetry 90 L 09/05/21 20:11 Oxygen Delivery Method 09/05/21 20:11 General: Healthy appearing, in mild distress. Able to give a complete and coherent history. Well-nourished well-developed HEENT: Moist mucous membranes, normal sclera with reactive pupils, Neck: No JVD, supple, tenderness along the distal left clavicle without subcutaneous air. Tenderness at C2-3 level midline cervical spine. Respiratory: Lungs are clear to auscultation, no wheezing no rales no rhonchi. Full and symmetrical air movement Cardiac: Regular rate and rhythm no murmurs no bruits Chest: No obvious abrasions or contusions. Tender along the left mid axillary line Abdomen: Soft, nontender, good bowel tones, no flank pain Skin: Warm and dry, no rashes Neurologic: Grossly neurologically intact with no obvious asymmetries or abnormalities Extremities: Minor contusion to the left knee, full range of motion is kaity reciated, tenderness to the left upper arm and shoulder. Well perfused Psych: Cooperative, appropriate insight and affect Course Orders Ordered: ED Orders 09/05/21 20:18 XR knee LT 3V Stat XR shoulder LT min 2V Stat 09/05/21 22:15 Complete Blood Count AUTO DIFF Stat Comprehensive Metabolic Panel Stat 09/05/21 22:22 XR chest 1V Stat 09/05/21 22:25 EKG-12 Lead Stat 09/05/21 22:36 CT chest abd pel w con Stat XR elbow LT 2V Stat 09/05/21 22:37 CT cervical spine wo con Stat CT head/brain wo con Stat 09/05/21 23:02 COVID19 -Nasal RAPID/Pre-Proc Stat 09/06/21 01:08 Troponin & CK Cardiac Panel Stat Hydromorphone HCl (Hydromorphone 0.5 Mg Inj) 0.5 mg IV Q15MIN PRN PRN Reason: Pain, Last Admin: 09/06/21 00:12 Dose: 0.5 mg Documented By: SHANE Discontinued Medications Ondansetron HCl (Ondansetron 4 Mg/2 Ml Inj) 4 mg IV NOW ONE Stop: 09/05/21 22:37 Last Admin: 09/06/21 00:12 Dose: 4 mg Documented By: SHANE Vital Signs Vital signs: Vital Signs - 8 hr 09/05/21 20:11 09/05/21 23:06 09/05/21 21:56 Pulse Rate 55 L 65 Respiratory Rate 18 22 Blood Pressure 154/70 H Pulse Oximetry 90 L 96 95 Oxygen Delivery Method Room Air Nasal Cannula Oxygen Flow Rate 5 09/05/21 21:57 09/05/21 21:57 09/05/21 22:00 Pulse Rate 64 65 Respiratory Rate 24 22 Blood Pressure 193/93 H Pulse Oximetry 94 95 Oxygen Delivery Method Oxygen Flow Rate 09/05/21 22:15 09/05/21 22:30 09/05/21 22:31 Pulse Rate 72 72 Respiratory Rate 32 H 37 H Blood Pressure 188/90 H Pulse Oximetry 96 91 Oxygen Delivery Method Oxygen Flow Rate 09/05/21 22:31 09/05/21 22:45 09/05/21 23:00 Pulse Rate 70 75 Respiratory Rate 24 22 Blood Pressure 215/99 H Pulse Oximetry 89 L 84 L 91 Oxygen Delivery Method Room Air Room Air Nasal Cannula Oxygen Flow Rate 3 09/05/21 23:00 09/05/21 23:15 09/05/21 23:46 Pulse Rate 77 77 83 Respiratory Rate 30 H 24 Blood Pressure Pulse Oximetry 84 L 96 95 Oxygen Delivery Method Oxygen Flow Rate 09/06/21 00:00 09/06/21 00:15 09/06/21 00:24 Pulse Rate 80 82 Respiratory Rate 17 Blood Pressure 159/72 H Pulse Oximetry 97 95 Oxygen Delivery Method Nasal Cannula Oxygen Flow Rate 5 09/06/21 00:24 09/06/21 00:30 09/06/21 00:45 Pulse Rate 87 85 80 Respiratory Rate 27 H 43 H 31 H Blood Pressure Pulse Oximetry 92 91 94 Oxygen Delivery Method Oxygen Flow Rate MDM - Fall Lab Data Result diagrams: 09/05/21 22:15 09/05/21 22:15 Labs: Lab Results 09/05/21 09/05/21 09/05/21 Range/Units 22:15 22:15 22:15 WBC 11.9 H (4.5-11.0) X10^3/uL RBC 4.41 (4.0-5.2) X10^6/uL Hgb 13.5 (12.0-16.0) g/dL Hct 39.9 (36-46) % MCV 90.5 (80-100) fL MCH 30.6 (26-34) PG MCHC 33.8 (30-36) % RDW 13.1 (11.6-14.8) % Plt Count 262 (150-400) X10^3/uL Neut % (Auto) 91.6 H (50-75) % Lymph % (Auto) 5.1 L (25-40) % Kemper % (Auto) 2.3 L (3-14) % Eos % (Auto) 0.4 L (2-4) % Baso % (Auto) 0.6 (0-2) % Neut # (Auto) 00437 H (6842-9009) /uL Lymph # (Auto) 600 L (4211-6589) /uL Kemper # (Auto) 300 (0-900) /uL Eos # (Auto) 0 (0-450) /uL Baso # (Auto) 100 (0-100) /uL Sodium 137 (137-145) mmol/L Potassium 4.0 (3.4-5.1) mmol/L Chloride 101 (98-107) mmol/L Carbon Dioxide 26 (22-32) mmol/L BUN 11 (7-17) mg/dL Creatinine 0.79 (0.52-1.04) mg/dL Estimated GFR > 60 (>60) mL/min BUN/Creatinine Ratio 13.9 (6-22) Glucose 136 H (80-110) mg/dL Calcium 9.1 (8.4-10.2) mg/dL Total Bilirubin 0.9 (0.2-1.3) mg/dL AST 43 H (14-36) IU/L ALT 27 (<35) IU/L Alkaline Phosphatase 78 (38-126) U/L Total Creatine Kinase 732 H (30-135) U/L CK-MB (CK-2) 26.90 H (<2.37) ng/mL CK-MB (CK-2) Rel Index 3.7 (1.5-5.0) % Troponin I < 0.012 (0.01-0.034) ng/mL Total Protein 7.4 (6.3-8.2) g/dL Albumin 4.4 (3.5-5.0) g/dL Globulin 3.0 (1.7-4.1) g/dL Albumin/Globulin Ratio 1.5 (1.0-2.8) SARS-CoV-2 (PCR) (Negative) 09/05/21 Range/Units 23:02 WBC (4.5-11.0) X10^3/uL RBC (4.0-5.2) X10^6/uL Hgb (12.0-16.0) g/dL Hct (36-46) % MCV (80-100) fL MCH (26-34) PG MCHC (30-36) % RDW (11.6-14.8) % Plt Count (150-400) X10^3/uL Neut % (Auto) (50-75) % Lymph % (Auto) (25-40) % Kemper % (Auto) (3-14) % Eos % (Auto) (2-4) % Baso % (Auto) (0-2) % Neut # (Auto) (2667-9020) /uL Lymph # (Auto) (7217-0998) /uL Kemper # (Auto) (0-900) /uL Eos # (Auto) (0-450) /uL Baso # (Auto) (0-100) /uL Sodium (137-145) mmol/L Potassium (3.4-5.1) mmol/L Chloride (98-107) mmol/L Carbon Dioxide (22-32) mmol/L BUN (7-17) mg/dL Creatinine (0.52-1.04) mg/dL Estimated GFR (>60) mL/min BUN/Creatinine Ratio (6-22) Glucose (80-110) mg/dL Calcium (8.4-10.2) mg/dL Total Bilirubin (0.2-1.3) mg/dL AST (14-36) IU/L ALT (<35) IU/L Alkaline Phosphatase (38-126) U/L Total Creatine Kinase (30-135) U/L CK-MB (CK-2) (<2.37) ng/mL CK-MB (CK-2) Rel Index (1.5-5.0) % Troponin I (0.01-0.034) ng/mL Total Protein (6.3-8.2) g/dL Albumin (3.5-5.0) g/dL Globulin (1.7-4.1) g/dL Albumin/Globulin Ratio (1.0-2.8) SARS-CoV-2 (PCR) Negative (Negative) Imaging Data Chest x-ray: Radiologist's Impression: FINDINGS:? ? Surgical changes and devices:? None.? ? Lungs and pleura:? Lungs are mildly abnormal with a mild interstitial prominence previously present.? No pleural effusions or pneumothorax.? ? Mediastinum:? Mediastinal contours appear normal.? Heart size is normal.? ? Bones and chest wall:? No suspicious bony lesions.? Overlying soft tissues appear unremarkable.? ? IMPRESSION:? Mild chronic interstitial prominence, no definite pneumonia seen. ? ? Dictated by: Quinten Estes M.D. on 09/05/2021 at 22:50 ? ? XR shoulder: Radiologist's Impression: FINDINGS:? ? Bones:? No definite acute fractures or dislocations however there is distortion of the morphology of the humeral head and neck area on the left suggestive old healed fracture.. ?No suspicious bony lesions.? Visualized ribs appear intact.? ? Soft tissues:? No suspicious soft tissue calcifications.? ? IMPRESSION:? Old healed fracture left shoulder at the humeral head/neck area, without definite acute superimposed injury.? Mild distortion of this area has been documented on prior imaging, see reference comparison studies above. ? ? Dictated by: Quinten Estes M.D. on 09/05/2021 at 20:50 ? ? CT scan - head: Radiologist's Impression: FINDINGS:? Image quality:? Excellent.? ? CSF spaces:? Basal cisterns are patent.? No extra-axial fluid collections.? The ventricles are symmetric in size and shape.? ? Brain:? No intracranial bleeds or masses.? There is cerebral volume loss for age, with resultant ventricular and sulcal prominence.? There are periventricular and deep white matter chronic small vessel ischemic changes.? There is intracranial internal carotid artery atherosclerosis.? ? Skull and face:? Calvarium and visualized facial bones appear intact, without suspicious lesions.? ? Sinuses:? Visualized sinuses and mastoids are generally abnormal, with chronic appearing opacification and reduced volume involving the right maxillary sinus, and opacification of the left sphenoid sinus and bilateral ethmoid air cells..? ? IMPRESSION:? No trauma found.? Chronic sinusitis involving the right maxillary sinus and ethmoid air cells.? Also, the right sphenoid sinus. ? ? Dictated by: Quinten Estes M.D. on 09/05/2021 at 23:47 ? ? CT chest abd pelvis: Radiologist's Impression: FINDINGS:? Image quality:? Excellent.? ? CHEST:? Lungs and pleura:? No acute airspace opacities.? No pleural effusions or pneumothorax.? Central and peripheral airways appear patent and normal in caliber.? ? Mediastinum:? Heart size is normal.? No pericardial effusion.? No mediastinal or hilar adenopathy by size criteria.? Thoracic aorta and central pulmonary arteries are normal in size.? Esophagus is normal in caliber.? No hiatal hernia.? ? Chest wall:? No axillary or supraclavicular adenopathy by size criteria.? Thyroid gland appears normal where well seen .? ? ? ABDOMEN:? Solid organs:? Liver is normal in size and enhancement.? Gallbladder appears normal .? Biliary system is non dilated.? Pancreas enhances normally.? Spleen is normal in size and enhancement.? No adrenal nodules.? Kidneys demonstrate normal size and enhancement, without hydronephrosis.? ? Peritoneum and bowel:? Bowel loops demonstrate normal wall thickness and caliber.? No free fluid or air.? ? Nodes and vessels:? No retroperitoneal or mesenteric adenopathy by size criteria.? Aorta and inferior vena cava are normal in size.? ? Miscellaneous:? A previously present ventral hernia in the periumbilical region allows small bowel to herniate into the subcutaneous fat at midline, but there is no sign of incarceration strangulation involving the small bowel loop extends into that area.? ? ? PELVIS:? Genitourinary:? Bladder wall thickness is normal.? ? Miscellaneous:? No inguinal hernias or adenopathy.? ? Bones:? No suspicious bony lesions.? No vertebral body compression fractures.? ? IMPRESSION:? No trauma found.? Periumbilical ventral hernia of small bowel, without evidence of incarceration or strangulation. ? Note:? Prior CT 05/21/21 had identified a prominence within the lingular segment left upper lobe which appears to represent a confluence of 3 vessels branching from 1. ? ? Dictated by: Quinten Estes M.D. on 09/05/2021 at 23:58 ? ? ECG Data Interpretation: Sinus rhythm at a rate of 67 Normal intervals, normal axis No acute ischemic changes MDM Narrative Medical decision making narrative: 80-year-old woman who fell down 10 stairs without overt loss of consciousness. All imaging studies are unremarkable including head CT C-spine, x-ray of the elbow, CT of the chest abdomen pelvis, chest x-ray shoulder x-ray and knee x- ray. On re-evaluation of the patient she is increasingly hypoxic. will drop into the 81-82% range with increasing perioral cyanosis and confusion. She has no history of hypoxia, chronic lung disease cardiac issues or explanation for her significant and reproducible hypoxia. The confusion may be explained with a mild concussion. At this point I am not suspicious of a stroke although that certainly could have led to a fall. Mildly elevated white blood cell count with 91.6% neutrophils. EKG shows sinus rhythm at a rate of 67 with no acute ischemic findings. Will go back and re-evaluated adding a troponin to see if there may be more of a cardiac issue to explain the hypoxia. Given the significant hypoxia and oxygen need she will need to be observed overnight. Covid screen is negative Troponin is negative EKG is reviewed in remains negative. She remains on 4 L of oxygen in the low 90s with no obvious reason. She is not in dramatic pain and is not significantly splinting. Care will be reviewed with the hospitalist serv lachelle. Admitted to Dr Tong. Because this was a trauma, will also review with general surgery, Dr Zambrano will consult. Discharge Plan Departure Patient Disposition: Admitted as Observation Clinical Impression: Hypoxia, Fall down stairs
[2021-09-05 22:43] LABS: Alanine Aminotransferase 27 IU/L (<35); Albumin 4.4 g/dL (3.5-5.0); Albumin Globulin Ratio 1.5 (1.0-2.8); Alkaline Phosphatase 78 U/L (38-126); Aspartate Aminotransferase 43 IU/L (14-36); BUN Creatinine Ratio 13.9 (6-22); Bilirubin Total 0.9 mg/dL (0.2-1.3); Blood Urea Nitrogen 11 mg/dL (7-17); Calcium 9.1 mg/dL (8.4-10.2); Carbon Dioxide 26 mmol/L (22-32); Chloride 101 mmol/L (98-107); Estimated Glomerular Filt Rate > 60 mL/min (>60); Glucose 136 mg/dL (80-110); HEMOLYSIS 21 (0-50); Sodium 137 mmol/L (137-145); Total Protein 7.4 g/dL (6.3-8.2)
[2021-09-05 23:22] LABS: COVID19 -Nasal RAPID Negative (Negative)
[2021-09-06] VITALS (29 sets, daily range): BP systolic 103–197; BP diastolic 60–116; PULSE 77–91; RESP 16–45; TEMP 36.9–38.3; O2SAT 91–99; BMI 28.1
--- NOTE | 2021-09-06 | DI.ECHO.S_ITS ---
[facility] +---------+ : : [address] [place] [address] : : : : [id number] : : : : Phone: [phone]+ Echocardiogram Report + + :Name: CAROLINE CHAMBERS Study Date: 09/06/2021 Height: 67 in : :[facility] ReadingLocation: Weight: 180 lb: : Gender: Female BSA: 1.9 m2 : :: 1940 Age: 80 yrs : :Reason For Study: possible hemopericardium : : Performed By: Gisele Crews : :Referring: UNSPECIFIED : + + Interpretation Summary Predominant rhythm sinus with short brief run of narrow QRS regular tachycardia like SVT caught on image 11. The patient had frequent PACs during the exam. The left ventricle is normal in size. The ejection fraction is estimated to be 65-70%. The right ventricle is normal in size and function. There is mild to moderate tricuspid regurgitation. The right ventricular systolic pressure is estimated to be at least 41 mmHg based on an estimated right atrial pressure of 3 mm Hg. There is mild pulmonary hypertension. Mild atherosclerotic plaque(s) in the aortic arch. The ascending aorta is mildly enlarged. There is no pericardial effusion. There is an anterior echo-free space consistent with a fat pad. There are no echocardiographic indications of cardiac tamponade. Procedure: A two-dimensional transthoracic echocardiogram with color flow and Doppler was performed. The study quality was technically difficult. There is no prior echocardiogram noted for this patient. Patient is supine for the exam due to left side pain from fall. Predominant rhythm sinus with short brief run of narrow QRS regular tachycardia like SVT caught on image 11. The patient had frequent PACs during the exam. Left Ventricle: The left ventricle is normal in size. Proximal septal thickening is noted. There is no echo evidence for significant left ventricular outflow tract obstruction. There is no thrombus. The ejection fraction is estimated to be 65-70%. Septal motion is consistent with conduction abnormality. Diastolic parameters suggest a relaxation abnormality of the left ventricle, consistent with probable normal filling pressures. Right Ventricle: The right ventricle is normal in size and function. Atria: Both atria are normal in size. A prominent eustachian valve is noted. There is no Doppler evidence for an atrial septal defect. Mitral Valve: There is a flat closure plane of the the mitral valve leaflets. The mitral valve is normal. There is mild mitral regurgitation. Aortic Valve: The aortic valve is not well visualized. The aortic valve opens well. There is no aortic valve stenosis. No aortic regurgitation is present. Tricuspid Valve: The tricuspid valve is not well visualized, but is grossly normal. There is tricuspid annular calcification. Fatty tricuspid annulus. An artifact seen in the right atrium. There is mild to moderate tricuspid regurgitation. The right ventricular systolic pressure is estimated to be at least 41 mmHg based on an estimated right atrial pressure of 3 mm Hg. There is mild pulmonary hypertension. Pulmonic Valve: The pulmonic valve is not well visualized. Great Vessels: The aortic root is normal size. The ascending aorta is mildly enlarged. The aortic arch is normal in size. Mild atherosclerotic plaque(s) in the aortic arch. The pulmonary is not well visualized. The IVC is of normal diameter and collapses greater than 50% with a sniff. This suggests a low right atrial pressure of 3 mm Hg. Pericardium/ Pleura There is no pericardial effusion. There is an anterior echo-free space consistent with a fat pad. There are no echocardiographic indications of cardiac tamponade. There is no pleural effusion. MMode/2D Measurements & Calculations LVIDd: 4.1 cm LVOT diam: 2.1 cm LVIDs: 2.7 cm Ao root diam: 3.6 cm FS: 34.9 % asc Aorta Diam: 3.7 cm IVSd: 0.79 cm Ao Arch Diam (Prox Trans): 3.0 cm LVPWd: 0.87 cm LV wilkerson. diameter/BSA (cm/m^2): 2.1 LV sys. diameter/BSA (cm/m^2): 1.4 LA A2 area: 10.6 cm2 RA long axis: 3.9 cm LA A4 area: 25.7 cm2 RA area: 10.5 cm2 LA length (vol): 6.4 cm RA vol: 23.8 ml LA vol: 36.2 ml RA : 12.3 ml/m2 LA vol index: 18.7 ml/m2 IVC diam: 1.2 cm RVD1 (basal): 3.5 cm TAPSE: 1.9 cm Doppler Measurements & Calculations Ao V2 max: 119.6 cm/sec LVOT Max Jin: 82.3 cm/sec Ao V2 mean: 94.0 cm/sec LV V1 max P.7 mmHg Ao max P.7 mmHg LV V1 VTI: 18.7 cm Ao mean P.7 mmHg SARAH(I,D): 2.9 cm2 Ao V2 VTI: 21.4 cm SARAH(V,D): 2.3 cm2 sev ratio: 0.87 SARAH indexed to BSA (cm^2/m^2): 1.5 MV E max jin: 43.8 cm/sec TR max jin: 307.9 cm/sec MV A max jin: 72.9 cm/sec TR max P.1 mmHg MV E/A: 0.60 Med Peak E' Jin: 5.3 cm/sec E/E' med: 8.2 Lat Peak E' Jin: 7.9 cm/sec E/E' lat: 5.6 E/e' average: 6.9 MV P1/2t: 75.4 msec MV P1/2t max jin: 44.9 cm/sec SV(LVOT): 62.8 ml MVA(P1/2t): 2.9 cm2 Reading Physician:12:30 PM
[2021-09-06] MEDS: ONDANSETRON 4 MG/2 ML INJ IV (00:12)
[2021-09-06] MEDS: HYDROMORPHONE 0.5 MG INJ IV (00:12)
[2021-09-06 01:23] LABS: Creatine Kinase 732 U/L (30-135)
[2021-09-06 01:40] LABS: CKMB % Relative Index 3.7 % (1.5-5.0)
[2021-09-06 02:03] LABS: Troponin I < 0.012 ng/mL (0.01-0.034)
[2021-09-06 04:13] LABS: Appearance Urine UA CLEAR; Bilirubin Urine UA NEGATIVE (NEGATIVE); Color Urine UA YELLOW; Glucose Urine UA NEGATIVE (Negative); Ketones Urine UA NEGATIVE (NEGATIVE); Leukocyte Esterase Urine UA 1+ (NEGATIVE); Nitrite Urine UA NEGATIVE (Negative); Occult Blood Urine UA 2+ (Negative); Protein Urine UA TRACE (Negative); Urobilinogen Urine UA 0.2 E.U./dL (0.2)
[2021-09-06 04:14] LABS: pH Urine UA 7.5 (4.5-8.0)
[2021-09-06 04:32] LABS: RBC Urine 1-5/HPF (0-5/HPF); WBC Urine 5-10/HPF (0-5/HPF)
[2021-09-06 04:33] LABS: Bacteria Urine Few (2-10); Culture Indicated Urine Specimen Cultured; Squamous Epithelial Cell Urine 1-5 /HPF (0-5/HPF)
--- NOTE | 2021-09-06 05:37 | P.HP_ITS ---
History of Present Illness History of Present Illness Date Patient Seen: 09/06/21 Time Patient Seen: 05:30 Chief complaint: fall down 10 steps/ No thinners Narrative: Ms. Camarena is a 80W with PMH stage 2 colon cancer s/p right hemicolectomy, HTN who presents after a fall. It is not clear if fall was witnessed. Patient is clearly confused, and says she tripped on stairs, but does not recall any further details. Per staff patient was heard calling out and found to have fallen. She was complaining primarily of left shoulder pain. She otherwise had no complaints of shortness of breath, chest pain, fevers/chills, cough, nausea, vomiting, abdominal pain. She lives in [facility] with her dog and per family she is much more confused than normally after the fall. In the ED workup was done, no temperature was documented in ED initially. On arrival to floor she was afebrile. Otherwise vitals notable for elevated blood pressure and tachypnea. She was satting in the 80s on room air and placed on 5L oxygen. Labs notable for WBC 11.9, 91.6% PMNs, CK 732, CK-MB 26.9, trop negative. UA with leuk esterase, 5-10 WBCS, few bacteria. Left shoulder xray showed an old fracture. Left knee xray with no acute process. Chest xray with mild chronic interstitial changes. CT thorax with contrast shows no abnormalities. Xray of left elbow, CT c-spine, and CT head with no acute process. She was admitted for further treatment. 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) Centrilobular emphysema Colitis (~2009) Colon cancer (~04/2019) Essential hypertension (05/06/11) Family history of alcoholism Family history of colon cancer Gastritis History of colitis (~2009) History of malignant neoplasm of left breast (2008) Iron deficiency anemia (07/30/15) Malignant neoplasm of skin of nose (02/15/14) Multiple pulmonary nodules Nontoxic uninodular goiter (02/15/14) Osteopenia (01/10/14) Symptomatic anemia Tooth ache Weight loss Surgical History H/O right hemicolectomy (~04/2019) History of cataract removal with insertion of prosthetic lens (05/11/11) History of cataract removal with insertion of prosthetic lens (04/27/11) History of esophagogastroduodenoscopy (EGD) (07/08/16) History of esophagogastroduodenoscopy (EGD) (~07/2017) History of mastectomy, subtotal (~2008) Status post breast biopsy (08/06/08) Status post breast lumpectomy (08/20/08) Status post colonoscopy (~08/2009) Status post colonoscopy (03/2015) Status post partial mastectomy (08/28/08) Family & Social History Family History Brother Heart disease Colon cancer Brother COPD (chronic obstructive pulmonary disease) Child Age: 52 Skin cancer Father CAD (coronary artery disease) Grandfather Stroke Mother Congestive heart failure Tobacco use disorder Cancer Sister Hypertension Breast cancer Daughter Breast cancer Social History: household members none Prior Living Arrangements Apartment/Condo Safety & Behavioral: Feels Safe in Current Yes Environment Been Physically Hurt or No Threatened By a Person Tobacco & Substance use: Tobacco type cigarettes Smoking Status Former smoker alcohol intake former Substance Use Type does not use Meds Home Medications and Allergies Home Medications Medication Instructions Recorded Confirmed Type MULTIVITAMIN (#MULTIPLE VITAMINS) 1 cap PO Q DAY ##0 05/07/11 09/06/21 History inhalational spacing device #1 ea 06/25/19 09/06/21 Rx (Flexichamber spacer) Lactobacillus acidophilus 10 1 cell DAILY 10/18/19 09/06/21 History billion cell capsule (Probiotic) propranolol 60 mg tablet 60 mg PO BID #180 tabs 12/09/20 09/06/21 Rx albuterol sulfate 90 mcg/actuation 1 puff inhalation Q3-4H PRN 03/30/21 09/06/21 Rx aerosol inhaler shortness of breath or wheezing #6.7 grams clonazepam 0.5 mg tablet 0.5 mg PO BEDTIME PRN anxiety, 03/30/21 09/06/21 Rx insomnia 30 days #30 tabs citalopram 40 mg tablet 40 mg PO DAILY 09/06/21 09/06/21 History omeprazole 40 mg capsule,delayed 40 mg PO DAILY 09/06/21 09/06/21 History release Allergies Allergy/AdvReac Type Severity Reaction Status Date / Time No Known Drug Allergies Allergy Verified 06/24/21 10:21 Review of Systems Review of Systems Narrative: 14 systems reviewed and negative aside from what is noted in HPI Exam Vital Signs (past 8 hours): - 09/05/21 23:06 09/05/21 21:56 09/05/21 21:57 Temperature Pulse Rate 65 Respiratory Rate 22 Blood Pressure 193/93 H Pulse Oximetry 96 95 Oxygen Delivery Method Nasal Cannula Oxygen Flow Rate 5 09/05/21 21:57 09/05/21 22:00 09/05/21 22:15 Temperature Pulse Rate 64 65 72 Respiratory Rate 24 22 32 H Blood Pressure Pulse Oximetry 94 95 96 Oxygen Delivery Method Oxygen Flow Rate 09/05/21 22:30 09/05/21 22:31 09/05/21 22:31 Temperature Pulse Rate 72 70 Respiratory Rate 37 H 24 Blood Pressure 188/90 H Pulse Oximetry 91 89 L Oxygen Delivery Method Room Air Oxygen Flow Rate 09/05/21 22:45 09/05/21 23:00 09/05/21 23:00 Temperature Pulse Rate 75 77 Respiratory Rate 22 30 H Blood Pressure 215/99 H Pulse Oximetry 84 L 91 84 L Oxygen Delivery Method Room Air Nasal Cannula Oxygen Flow Rate 3 09/05/21 23:15 09/05/21 23:46 09/06/21 00:00 Temperature Pulse Rate 77 83 80 Respiratory Rate 24 17 Blood Pressure Pulse Oximetry 96 95 97 Oxygen Delivery Method Oxygen Flow Rate 09/06/21 00:15 09/06/21 00:24 09/06/21 00:24 Temperature Pulse Rate 82 87 Respiratory Rate 27 H Blood Pressure 159/72 H Pulse Oximetry 95 92 Oxygen Delivery Method Nasal Cannula Oxygen Flow Rate 5 09/06/21 00:30 09/06/21 00:45 09/06/21 01:00 Temperature Pulse Rate 85 80 Respiratory Rate 43 H 31 H Blood Pressure 173/75 H Pulse Oximetry 91 94 Oxygen Delivery Method Oxygen Flow Rate 09/06/21 01:00 09/06/21 01:15 09/06/21 01:30 Temperature Pulse Rate 77 80 Respiratory Rate 23 22 Blood Pressure 161/80 H Pulse Oximetry 94 96 Oxygen Delivery Method Oxygen Flow Rate 09/06/21 01:30 09/06/21 01:45 09/06/21 02:00 Temperature Pulse Rate 82 83 86 Respiratory Rate 22 19 Blood Pressure Pulse Oximetry 97 96 93 Oxygen Delivery Method Oxygen Flow Rate 09/06/21 02:01 09/06/21 02:01 09/06/21 02:15 Temperature Pulse Rate 84 87 Respiratory Rate 36 H 45 H Blood Pressure 169/116 H Pulse Oximetry 93 93 Oxygen Delivery Method Oxygen Flow Rate 09/06/21 02:30 09/06/21 02:30 09/06/21 02:45 Temperature Pulse Rate 87 86 Respiratory Rate 32 H 28 H Blood Pressure 197/106 H Pulse Oximetry 96 97 Oxygen Delivery Method Oxygen Flow Rate 09/06/21 03:00 09/06/21 03:01 09/06/21 03:15 Temperature Pulse Rate 89 90 85 Respiratory Rate 25 H 31 H 31 H Blood Pressure Pulse Oximetry 97 98 Oxygen Delivery Method Oxygen Flow Rate 09/06/21 03:18 09/06/21 03:18 09/06/21 04:16 Temperature 99.2 F Pulse Rate 87 89 Respiratory Rate 41 H 18 Blood Pressure 155/88 H 170/88 H Pulse Oximetry 95 93 Oxygen Delivery Method Nasal Cannula Oxygen Flow Rate 5 5 09/06/21 04:38 09/05/21 23:05 09/06/21 03:35 Temperature Pulse Rate 80 Respiratory Rate Blood Pressure Pulse Oximetry 99 Oxygen Delivery Method Nasal Cannula Nasal Cannula Oxygen Flow Rate Oxygen Delivery Method Nasal Cannula Oxygen Flow Rate 5 Narrative Exam Narrative: GEN: no acute distress, confused HEENT: moist mucous membranes, PERRL NECK: trachea midline, no JVD CV: regular rate and rhythm, no murmurs PULM: clear bilaterally, no wheezes, rhonchi, rales ABD: soft, nontender, nondistended, no organomegaly EXT: warm and well perfused, with no edema, tenderness with palpation over shoulder NEURO: awake, alert, oriented x2, no focal deficits noted, confused Objective Labs Result Diagrams: 09/05/21 22:15 09/05/21 22:15 Labs: Laboratory Results - last 24 hr 09/05/21 09/05/21 09/05/21 22:15 22:15 22:15 WBC 11.9 H RBC 4.41 Hgb 13.5 Hct 39.9 MCV 90.5 MCH 30.6 MCHC 33.8 RDW 13.1 Plt Count 262 Neut % (Auto) 91.6 H Lymph % (Auto) 5.1 L [place] % (Auto) 2.3 L Eos % (Auto) 0.4 L Baso % (Auto) 0.6 Neut # (Auto) 32922 H Lymph # (Auto) 600 L [place] # (Auto) 300 Eos # (Auto) 0 Baso # (Auto) 100 Sodium 137 Potassium 4.0 Chloride 101 Carbon Dioxide 26 BUN 11 Creatinine 0.79 Estimated GFR > 60 BUN/Creatinine Ratio 13.9 Glucose 136 H Calcium 9.1 Total Bilirubin 0.9 AST 43 H ALT 27 Alkaline Phosphatase 78 Total Creatine Kinase 732 H CK-MB (CK-2) 26.90 H CK-MB (CK-2) Rel Index 3.7 Troponin I < 0.012 Total Protein 7.4 Albumin 4.4 Globulin 3.0 Albumin/Globulin Ratio 1.5 Urine Color Urine Appearance Urine pH Ur Specific [place] Urine Protein Urine Glucose (UA) Urine Ketones Urine Occult Blood Urine Nitrate Urine Bilirubin Urine Urobilinogen Ur Leukocyte Esterase Urine RBC Urine WBC Ur Squamous Epith Cells Urine Bacteria Ur Culture Indicated? SARS-CoV-2 (PCR) 09/05/21 09/06/21 23:02 03:38 WBC RBC Hgb Hct MCV MCH MCHC RDW Plt Count Neut % (Auto) Lymph % (Auto) [place] % (Auto) Eos % (Auto) Baso % (Auto) Neut # (Auto) Lymph # (Auto) [place] # (Auto) Eos # (Auto) Baso # (Auto) Sodium Potassium Chloride Carbon Dioxide BUN Creatinine Estimated GFR BUN/Creatinine Ratio Glucose Calcium Total Bilirubin AST ALT Alkaline Phosphatase Total Creatine Kinase CK-MB (CK-2) CK-MB (CK-2) Rel Index Troponin I Total Protein Albumin Globulin Albumin/Globulin Ratio Urine Color Yellow Urine Appearance Clear Urine pH 7.5 Ur Specific [place] 1.010 Urine Protein Trace H Urine Glucose (UA) Negative Urine Ketones Negative Urine Occult Blood 2+ H Urine Nitrate Negative Urine Bilirubin Negative Urine Urobilinogen 0.2 Ur Leukocyte Esterase 1+ H Urine RBC 1-5/hpf Urine WBC 5-10/hpf H Ur Squamous Epith Cells 1-5 /hpf Urine Bacteria Few (2-10) H Ur Culture Indicated? Specimen cultured SARS-CoV-2 (PCR) Negative Assessment & Plan Assessment & Plan narrative: Ms. Camarena is a 80W with PMH colon cancer, COPD who presents after a fall down stairs found to be hypoxemic. 1. Acute hypoxemic respiratory failure -has chronic COPD, but currently no sob, cough, doubt acute flare -fall may be syncope, will need rule out PE with CTA -consider ECHO pending results -ordered ABG -no evidence of infiltrate, hold off antibiotics for now -COVID negative -repeat second troponin 2. Trauma from fall -etiology of fall not clear, unsure if mechanical vs sycnopal vs other -complaining of left shoulder pain, xray shows old fracture -if shoulder pain persists consider CT scan -ordered norco for pain -surgery consulted 3. Acute encephalopathy -unclear etiology -suspect concussion post fall -CT head negative -UA presumptive positive -start antibiotics and follow up cultures -lif neurologic decline plan for repeat head CT or MRI head 4. Possible UTI -UA positive with leuks, wbcs -urine culture pending -ceftriaxone 1gm daily for now 5. Colon cancer -onc stage 2a -s/p R hemicolectomy with no evidence of recurrence -follow up oncology as outpatient CODE: Full Proxy: Pia Oden, daughter I have utilized all available resources to reconcile the patient's home medications. Time Spent With Patient Critical Care time: I spent a total of [] minutes of critical care time on this patient's care today; this time is exclusive of procedural time. Quality MIPS - Admit I confirm the patient?s Advance Care Plan is present, Code status is documented, Surrogate decision maker is in patient?s record [If Yes, STOP here]: Yes
--- NOTE | 2021-09-06 05:51 | DI.CT.S_ITS ---
PROCEDURE: CT ANGIO CHEST PE PROTOCOL INDICATIONS: hypoxemia TECHNIQUE: After the administration of intravenous contrast, 2 mm thick sections acquired from the pulmonary apices to the posterior costophrenic angles. For radiation dose reduction, the following was used: automated exposure control, adjustment of mA and/or kV according to patient size. COMPARISON: Located Within [facility], CT, CT CHEST ABD PEL W CON, 09/05/2021, 23:35. FINDINGS: Image quality: Excellent. Pulmonary arteries: Pulmonary arteries are normal in size, and demonstrate no intraluminal filling defects to suggest central pulmonary embolism. Lungs and pleura: Bilateral upper lobe septal thickening probably reflects vascular congestion. Associated dependent ground-glass density also consistent with edema. Incidental peripheral left upper lobe 4 mm nodule noted on image 5/150. Mediastinum: Heart size is normal, without pericardial effusion. No mediastinal or hilar adenopathy. Thoracic aorta is normal in caliber and enhancement. Esophagus is normal in caliber, without hiatal hernia. Bones and chest wall: Sternal fracture and small retrosternal hematoma measures 1.4 cm in thickness. Comminuted left scapular fracture with intramuscular hematoma and the subscapularis muscle measuring up to 4.4 cm. No evidence of active bleeding. Fourth left rib fracture associated laterally. Additional nondisplaced 3rd and 5th rib fractures are present anteriorly. No pneumothorax. Old healed right proximal humeral fracture Abdomen: Low-density 1.7 cm left adrenal nodule, consistent with adenoma IMPRESSION: 1. No evidence of pulmonary embolism, aortic dissection or aneurysm. 2. Acute traumatic injuries include comminuted left scapular fracture with associated intramuscular hematoma. Several left-sided rib fractures present without pneumothorax. Sternal fracture present with small retrosternal hematoma. No evidence of active bleeding 3. Mild cardiomegaly and pulmonary vascular congestion. 4. Incidental 4 mm left upper lobe nodule. Consider 12 month follow-up Note: Final report is concordant with preliminary interpretation by [employer] Approved by: Harrison Alfaro M.D. on 09/06/2021 at 8:45
[2021-09-06] MEDS: cefTRIAXone 1,000 MG in SODIUM CHLORIDE 0.9% 100 ML 200 MG IV (06:53)
[2021-09-06 07:15] LABS: Add Manual Diff / Slide Review NO; Basophils Absolute Auto 0 /uL (0-100); Basophils Percent Auto 0.3 % (0-2); Eosinophils Absolute Auto 0 /uL (0-450); Eosinophils Percent Auto 0.2 % (2-4); Hematocrit 37.5 % (36-46); Hemoglobin 12.8 g/dL (12.0-16.0); Lymphocytes Absolute Auto 300 /uL (1100-4500); Lymphocytes Percent Auto 2.4 % (25-40); Mean Corpuscular Hemoglobin 30.5 PG (26-34); Mean Corpuscular Volume 89.8 fL (80-100); Monocytes Absolute Auto 400 /uL (0-900); Monocytes Percent Auto 2.9 % (3-14); Neutrophils Absolute Auto 13300 /uL (1500-7000); Neutrophils Percent Auto 94.2 % (50-75); Platelet Count 196 X10^3/uL (150-400); Red Blood Cell Count 4.17 X10^6/uL (4.0-5.2); Red Cell Distribution Width 13.3 % (11.6-14.8); White Blood Cell Count 14.2 X10^3/uL (4.5-11.0)
[2021-09-06 07:23] LABS: BUN Creatinine Ratio 17.1 (6-22); Blood Urea Nitrogen 12 mg/dL (7-17); Calcium 8.6 mg/dL (8.4-10.2); Carbon Dioxide 25 mmol/L (22-32); Chloride 100 mmol/L (98-107); Estimated Glomerular Filt Rate > 60 mL/min (>60); Glucose 191 mg/dL (80-110); HEMOLYSIS 15 (0-50); Potassium 3.6 mmol/L (3.4-5.1); Sodium 132 mmol/L (137-145)
[2021-09-06 07:35] LABS: Troponin I 0.079 ng/mL (0.01-0.034)
--- NOTE | 2021-09-06 07:42 | PC.NURSE ---
Pt was admitted this am around 0355 s/p fall. Pt requiring 5L NC (doesn't use oxygen at home), sating 92-93%. Pt alert to self and place. Pt c/o pain to left shoulder and difficulty moving her shoulder. Pt tried to get out of bed with nursing assistance to use the BSC but pt wasn't able to due to dizziness and c/o Nausea. Pt back in bed. Dr. Robledo aware, bed alarm in place.
[2021-09-06 08:17] LABS: Procalcitonin 0.18 ng/mL (<0.5)
[2021-09-06] MEDS: HEPARIN 5,000 UNIT/ML VIAL 5000 UNIT SUBCUT ×2 (08:59→20:12)
[2021-09-06] MEDS: HYDROCODONE/ACET 5/325 TABLET 1 TAB PO (09:03)
[2021-09-06 09:36] LABS: Fractionated Inspired Oxygen 40; HCO3 ABG 25 mmol/L (22-26); Oxygen Saturation ABG 95 % (95-100); PCO2 ABG 40.1 mmHg (35-45); PO2 ABG 74 mmHg (80-100); TCO2 ABG 26 mmol/L (21-31)
--- NOTE | 2021-09-06 11:24 | CM.DANOTE ---
DCP Assessment: Payor: Thad PCP: MD Emilio Pt is a 80 y.o. F who presented to the ED following a fall down the stairs at her residence. No loss of consciousness, fractures, or lacerations. Daughter states that she has significant confusion after the fall. Pt has a PMH of stage 2 colon cancer who had a hemicolectomy recently. Pt has possible UTI and on ceftriazone 1 gm daily. Pt is a full code. Pt to follow up with oncology as outpatient. Pt admitted to the floor under observation. DCP met with pt and pt daughter this morning to discuss discharge planning. DCP introduced herself and role. Pt was getting procedure when DCP arrived but was able to talk with Isabel vega, outside the room. Isabel states that pt is independent at baseline. Pt walks her dogs and still drives POV. Isabel denies pt uses any DME's. Pt daughter states that her oncologist is Dr. Albright. Isabel states that pt has a lot of family support nearby and when able to discharge, they are able to take shifts to be with pt while she recovers from hospital stay. DCP discussed HH with daughter. Daughter is agreeable to home health. DCP was able to talk with pt following procedure and pt also agrees with HH services. DCP to initiate referral to [facility]. White board was updated. Instructed to call. Pt and pt daughter thankful for the discussion. P: Once pt is medically stable for discharge, pt to discharge home with family with [facility]. Christine Freed RN/ALBERT Discharge Planning/Care Management CM Discharge Assessment Start: 09/06/21 11:22 Freq: Status: Active Protocol: Document 09/06/21 11:22 SYLWIA (Rec: 09/06/21 11:23 SYLWIA [id number]) Discharge Planning Assessment Assigned [employer]er Christine Freed RN/ALBERT Advance Directives? Yes Advance Directives on File No History Provided By Patient,Family Member,Medical Record Prior Living Arrangements Apartment/Condo Household Members none Type of transporation used prior to Drives own vehicle admit Independent with ADL's Yes Is patient alert and oriented? Yes Patient/Family Preference Home with Home Health Discharge Plan Home with Home Health Transportation Arrangement Pt daughter to provide transport. Referrals Initiated Home Health Whiteboard Updated in Patient Room with Yes name and ext. # of [employer]er Comment Instructed to call with any questions Review Status In Process Please Provide Date Initial DC 09/06/21 Assessment Was Performed Next Review Type Continued Stay Review
[2021-09-06] MEDS: FUROSEMIDE 20 MG/2 ML VIAL IV (12:26)
[2021-09-06] MEDS: SODIUM CHLORIDE 0.9% FLUSH 10 ML IV ×2 (12:27→20:13)
[2021-09-06] MEDS: ACETAMINOPHEN 325 MG TABLET PO (12:27)
[2021-09-06 13:02] LABS: Troponin I 0.121 ng/mL (0.01-0.034)
--- NOTE | 2021-09-06 15:25 | PT.IIE ---
Surgical History (Last Reviewed 09/05/21 @ 23:10 by Angela Staples MD) H/O right hemicolectomy (~04/2019) History of cataract removal with insertion of prosthetic lens (05/11/11) History of cataract removal with insertion of prosthetic lens (04/27/11) History of esophagogastroduodenoscopy (EGD) (07/08/16) History of esophagogastroduodenoscopy (EGD) (~07/2017) History of mastectomy, subtotal (~2008) Status post breast biopsy (08/06/08) Status post breast lumpectomy (08/20/08) Status post colonoscopy (~08/2009) Status post colonoscopy (03/2015) Status post partial mastectomy (08/28/08) Medical History (Last Reviewed 09/05/21 @ 23:10 by Angela Staples MD) Anxiety (05/06/11) 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) Centrilobular emphysema Colitis (~2009) Colon cancer (~04/2019) Essential hypertension (05/06/11) Family history of alcoholism Family history of colon cancer Gastritis History of colitis (~2009) History of malignant neoplasm of left breast (2008) Iron deficiency anemia (07/30/15) Malignant neoplasm of skin of nose (02/15/14) Multiple pulmonary nodules Nontoxic uninodular goiter (02/15/14) Osteopenia (01/10/14) Symptomatic anemia Tooth ache Weight loss Physical Therapy Inpatient Evaluation/Re-Eval M1 PT/OT-IP Prior Functional Status Start: 09/06/21 14:37 Freq: NEEDED Status: Active Protocol: Document 09/06/21 15:25 AW (Rec: 09/06/21 15:59 AW [id number]) Medical Review Prior Functional Status Medical History Reviewed Yes Communication WNL. Pt is an effective verbal communicator. Mobility and Gait Independent. Pt does not use any assistive device. She regularly walks her small dog and denies falls. Activities of Daily Living and IADL's Independent with all ADL's. Pt drives, shops, cooks, and cleans on her own. Prior Functional Level (Other details) Pt has history of colon cancer with hemicolectomy in 2019. Social History Household Members none Living Arrangements Apartment/Condo Number of Floors (Floors) One Floor Number of Stairs To Enter/Railing? Pt lives in 1st floor apartment with no stairs to enter. She has friends in the building who live on the second floor. Pt fell down those stairs. 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 She lived with her daughter, Savana, for ~2 years following hemicolectomy. She moved in to [employer] in April of this year. Her daughters, Pia Sawant, and Mirna are planning to coordinate care. M2 PT-IP Current Condition Start: 09/06/21 14:37 Freq: NEEDED Status: Active Protocol: Document 09/06/21 15:25 AW (Rec: 09/06/21 15:59 AW [id number]) Physical Therapy Current Condition Current Condition Evaluation Date 09/06/21 Treatment Diagnosis fall down stairs, L scapula, sternal, and rib fx (3-5); hypoxic resp fail Onset Date 09/05/21 M3 PT-IP Subjective Start: 09/06/21 14:37 Freq: NEEDED Status: Active Protocol: Document 09/06/21 15:25 AW (Rec: 09/06/21 15:59 AW [id number]) Subjective Physical Therapy Visit Type Type Initial Evaluation Visit Start Time 14:56 Visit Stop Time 15:25 Total Visit Minutes 29 Notes Noted pt's troponin robina from negative to 0.79 to 0.121. Discussed pt with hospitalist who stated rise likely due to demand and not indicative of PR. cleared pt for mobility but PT will continue to monitor serial troponin. Physical Therapy Visit Comments Patient Comments Pt is willing to participate with PT but I don't think I can do much. Patient Goals Return home with family support. Therapy Pain Assessment Pain When Pain Assessed During Mobility Pain Present Pain Present Pain Reported Location Left Shoulder Scale Used not quantified Pain Behaviors Facial Grimacing,Guarding, Wincing Pain Management Techniques Modification of Treatment M4 PT-IP Mobility and Gait Start: 09/06/21 14:37 Freq: NEEDED Status: Active Protocol: Document 09/06/21 15:25 AW (Rec: 09/06/21 15:59 AW [id number]) PT-Bed Mobility Assessment Rolling Level of Assist Moderate Assistance,1 Person Assistance Supine to Sit Supine to Sit Moderate Assistance,1 Person Assistance Sit to Supine Sit to Supine Moderate Assistance,1 Person Assistance PT-Transfer Assessment Comments Mobility Comments Pt was lying in bed as PT arrived. SpO2 was 92-94% on 2. 5 L/min via NC. BP 135/64 HR 90. Pt required some encouragement and mod A to roll to her side and sit up EOB. She was unable to use her left arm due to pain. SpO2 was stable. PT removed O2 and SpO2 was 90-92% on room air. Pt sat ~5 minutes but complained of dizziness and nausea. She did not feel safe or well enough to attempt standing. BP was 103/60 HR 101 . Mod A to return to supine. Pt was left with nursing attending and bed alarm on. PT reported all findings to RN. Gait Assessment Comments Gait Comments Not able today due to dizziness and nausea. PT-Balance Assessment Sitting Balance and Reactions Static Sitting Balance Ability Good Dynamic Sitting Balance Ability Fair M5 PT-IP Objective Assessments Start: 09/06/21 14:37 Freq: NEEDED Status: Active Protocol: Document 09/06/21 15:25 AW (Rec: 09/06/21 15:59 AW [id number]) Orientation Orientation/Cognition Level of Alertness Confusional State Orientation Name,Place,Situation Comments Pt's daughter in room confirmed pt remains below baseline cognitively with increased confusion and fogginess. Gross Range of Motion Upper Extremity ROM Assessment Left Impaired Lower Extremity ROM Assessment Within Functional Limits Strength Upper Extremity Strength Assessment Left Impaired Comments Strength Comments BLE grossly 4/5 Sensation Assessment Sensation Gross Sensation WNL M6 PT-IP Treatment Start: 09/06/21 14:37 Freq: NEEDED Status: Active Protocol: Document 09/06/21 15:25 AW (Rec: 09/06/21 15:59 AW [id number]) Physical Therapy Treatment Education Education Provided Safety M7 PT-IP Assessment and Plan Start: 09/06/21 14:37 Freq: NEEDED Status: Active Protocol: Document 09/06/21 15:25 AW (Rec: 09/06/21 15:59 AW [id number]) PT Summary Assessment and Plan Potential Rehabilitation Potential Good Status of Condition at Evaluation Evolving Summary Impairments Pain,ROM,Strength,Balance, Cognition,Bed Mobility, Transfers,Gait Assessment Summary Fay is a 80 yo woman who lives indepedently. She fell down concrete stairs at her apartment building and sustained left scapula fracture as well as sternal and rib fractures (ribs 3-5). She has history of COPD but uses no O2 at home. She is needing 2.5 L/min O2 at this time to maintain 90-94% O2 saturation. Troponin is trending up but hospitalist cleared pt for mobility. Assessment was limited because pt complained of dizziness and nausea in sitting after needing mod assist for bed mobility. Will need further assessment but pt's family are planning to take her home and provide round the clock assist. Pt is open to home health therapies which would be beneficial to improve her ROM, strength, and functional mobility. Goals Bed Mobility Goal Standby Assistance Transfer Goal Standby Assistance Gait Goal Standby Assistance Gait Distance 200 Days to Meet Goals 8 Frequency of Treatment Frequency Of Treatment Once a Day Treatment Plan Physical Therapy Treatment Plan Bed Mobility Training,Transfer Training,Gait Training, Therapeutic Exercise,Balance Retraining,Discharge Planning, Hot or Cold Pack,Neuromuscular Re-ed Other Recommendations and Next Treatment check troponin trend; consider Focus sling for comfort; plan PM visit to coordinate with daughter for possible training ; if safe for gait, consider SPC Precautions Other Precautions protect left shoulder Recommendations To Nursing Amount of Assist Needed PT/OT Assist Only Discharge Recommendations PT Discharge Recommendations Home with 13/09 Assist Available,Home Health,Home vs SNF Transportation Needs at Discharge Private Vehicle,Wheelchair/ Cabulance
[2021-09-07] VITALS (8 sets, daily range): BP systolic 110–169; BP diastolic 48–67; PULSE 77–100; RESP 16–18; TEMP 36.1–37.2; O2SAT 94–97
[2021-09-07 00:30] LABS: Add Manual Diff / Slide Review NO; Basophils Absolute Auto 0 /uL (0-100); Basophils Percent Auto 0.5 % (0-2); Eosinophils Absolute Auto 100 /uL (0-450); Eosinophils Percent Auto 1.4 % (2-4); Hematocrit 34.6 % (36-46); Hemoglobin 11.7 g/dL (12.0-16.0); Lymphocytes Absolute Auto 700 /uL (1100-4500); Lymphocytes Percent Auto 7.1 % (25-40); Mean Corpuscular HGB Conc 33.9 % (30-36); Mean Corpuscular Hemoglobin 30.6 PG (26-34); Mean Corpuscular Volume 90.5 fL (80-100); Monocytes Absolute Auto 400 /uL (0-900); Monocytes Percent Auto 4.2 % (3-14); Neutrophils Absolute Auto 8800 /uL (1500-7000); Neutrophils Percent Auto 86.8 % (50-75); Platelet Count 169 X10^3/uL (150-400); Red Blood Cell Count 3.82 X10^6/uL (4.0-5.2); Red Cell Distribution Width 13.1 % (11.6-14.8); White Blood Cell Count 10.1 X10^3/uL (4.5-11.0)
[2021-09-07 00:38] LABS: BUN Creatinine Ratio 21.6 (6-22); Blood Urea Nitrogen 16 mg/dL (7-17); Calcium 8.4 mg/dL (8.4-10.2); Carbon Dioxide 28 mmol/L (22-32); Chloride 101 mmol/L (98-107); Estimated Glomerular Filt Rate > 60 mL/min (>60); Glucose 131 mg/dL (80-110); HEMOLYSIS < 15 (0-50); Potassium 3.4 mmol/L (3.4-5.1); Sodium 133 mmol/L (137-145)
[2021-09-07 00:53] LABS: Troponin I 0.178 ng/mL (0.01-0.034)
[2021-09-07] MEDS: cefTRIAXone 1,000 MG in SODIUM CHLORIDE 0.9% 100 ML 200 MG IV (06:25)
--- NOTE | 2021-09-07 08:03 | PM.HP.1 ---
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) Centrilobular emphysema Colitis (~2009) Colon cancer (~04/2019) Essential hypertension (05/06/11) Family history of alcoholism Family history of colon cancer Gastritis History of colitis (~2009) History of malignant neoplasm of left breast (2008) Iron deficiency anemia (07/30/15) Malignant neoplasm of skin of nose (02/15/14) Multiple pulmonary nodules Nontoxic uninodular goiter (02/15/14) Osteopenia (01/10/14) Symptomatic anemia Tooth ache Weight loss Surgical History H/O right hemicolectomy (~04/2019) History of cataract removal with insertion of prosthetic lens (05/11/11) History of cataract removal with insertion of prosthetic lens (04/27/11) History of esophagogastroduodenoscopy (EGD) (07/08/16) History of esophagogastroduodenoscopy (EGD) (~07/2017) History of mastectomy, subtotal (~2008) Status post breast biopsy (08/06/08) Status post breast lumpectomy (08/20/08) Status post colonoscopy (~08/2009) Status post colonoscopy (03/2015) Status post partial mastectomy (08/28/08) Family & Social History Family History Brother Heart disease Colon cancer Brother COPD (chronic obstructive pulmonary disease) Child Age: 52 Skin cancer Father CAD (coronary artery disease) Grandfather Stroke Mother Congestive heart failure Tobacco use disorder Cancer Sister Hypertension Breast cancer Daughter Breast cancer Social History: household members none Prior Living Arrangements Apartment/Condo Safety & Behavioral: Feels Safe in Current Yes Environment Been Physically Hurt or No Threatened By a Person Tobacco & Substance use: Tobacco type cigarettes Smoking Status Former smoker alcohol intake former Substance Use Type does not use Meds Home Medications and Allergies Home Medications Medication Instructions Recorded Confirmed Type MULTIVITAMIN (#MULTIPLE VITAMINS) 1 cap PO Q DAY ##0 05/07/11 09/06/21 History inhalational spacing device #1 ea 06/25/19 09/06/21 Rx (Flexichamber spacer) Lactobacillus acidophilus 10 1 cell DAILY 10/18/19 09/06/21 History billion cell capsule (Probiotic) propranolol 60 mg tablet 60 mg PO BID #180 tabs 12/09/20 09/06/21 Rx albuterol sulfate 90 mcg/actuation 1 puff inhalation Q3-4H PRN 03/30/21 09/06/21 Rx aerosol inhaler shortness of breath or wheezing #6.7 grams clonazepam 0.5 mg tablet 0.5 mg PO BEDTIME PRN anxiety, 03/30/21 09/06/21 Rx insomnia 30 days #30 tabs citalopram 40 mg tablet 40 mg PO DAILY 09/06/21 09/06/21 History omeprazole 40 mg capsule,delayed 40 mg PO DAILY 09/06/21 09/06/21 History release Allergies Allergy/AdvReac Type Severity Reaction Status Date / Time No Known Drug Allergies Allergy Verified 06/24/21 10:21 Exam Vital Signs (past 8 hours): - 09/07/21 01:00 Temperature 98.9 F Pulse Rate 79 Respiratory Rate 16 Blood Pressure 131/67 Pulse Oximetry 95 Oxygen Flow Rate 2.5 Fraction of Inspired Oxygen 40 Oxygen Delivery Method Nasal Cannula Oxygen Flow Rate 2.5 Objective Labs Result Diagrams: 09/07/21 00:20 09/07/21 00:20 Labs: Laboratory Results - last 24 hr 09/06/21 09/06/21 09/06/21 06:55 09:26 12:00 WBC RBC Hgb Hct MCV MCH MCHC RDW Plt Count Neut % (Auto) Lymph % (Auto) [place] % (Auto) Eos % (Auto) Baso % (Auto) Neut # (Auto) Lymph # (Auto) [place] # (Auto) Eos # (Auto) Baso # (Auto) ABG pH 7.40 ABG pCO2 40.1 ABG pO2 74 L ABG HCO3 25 ABG Total CO2 26 ABG O2 Saturation 95 ABG Base Excess 0.0 FiO2 40 Sodium Potassium Chloride Carbon Dioxide BUN Creatinine Estimated GFR BUN/Creatinine Ratio Glucose Calcium Troponin I 0.121 H* Procalcitonin 0.18 09/06/21 09/07/21 09/07/21 18:05 00:20 00:20 WBC 10.1 RBC 3.82 L Hgb 11.7 L Hct 34.6 L MCV 90.5 MCH 30.6 MCHC 33.9 RDW 13.1 Plt Count 169 Neut % (Auto) 86.8 H Lymph % (Auto) 7.1 L [place] % (Auto) 4.2 Eos % (Auto) 1.4 L Baso % (Auto) 0.5 Neut # (Auto) 8800 H Lymph # (Auto) 700 L [place] # (Auto) 400 Eos # (Auto) 100 Baso # (Auto) 0 ABG pH ABG pCO2 ABG pO2 ABG HCO3 ABG Total CO2 ABG O2 Saturation ABG Base Excess FiO2 Sodium 133 L Potassium 3.4 Chloride 101 Carbon Dioxide 28 BUN 16 Creatinine 0.74 Estimated GFR > 60 BUN/Creatinine Ratio 21.6 Glucose 131 H Calcium 8.4 Troponin I 0.160 H* Procalcitonin 09/07/21 00:20 WBC RBC Hgb Hct MCV MCH MCHC RDW Plt Count Neut % (Auto) Lymph % (Auto) [place] % (Auto) Eos % (Auto) Baso % (Auto) Neut # (Auto) Lymph # (Auto) [place] # (Auto) Eos # (Auto) Baso # (Auto) ABG pH ABG pCO2 ABG pO2 ABG HCO3 ABG Total CO2 ABG O2 Saturation ABG Base Excess FiO2 Sodium Potassium Chloride Carbon Dioxide BUN Creatinine Estimated GFR BUN/Creatinine Ratio Glucose Calcium Troponin I 0.178 H* Procalcitonin Assessment & Plan Time Spent With Patient Critical Care time: I spent a total of [] minutes of critical care time on this patient's care today; this time is exclusive of procedural time.
[2021-09-07] MEDS: HEPARIN 5,000 UNIT/ML VIAL 5000 UNIT SUBCUT ×2 (08:26→20:29)
--- NOTE | 2021-09-07 09:01 | P.PN_ITS ---
Subjective Subjective Date Patient Seen: 09/07/21 Time Patient Seen: 08:03 Interval history: Patient was admitted secondary to a fall she had going up her stairs and sustained a number of fractures in her ribs and scapula on 09/06/2021. Patient was reported to me to be confused on admission with some improvement overnight. Patient appeared to be more alert toward me and stated that she was going up her stairs and believe she tripped over her small dog and somehow landed on her back and fell. She does not recall blacking out but was stunned and agreed she was confused after the event. She does not complain of any pain at the moment or shortness of breath. She denies chest pain or a history of cardiac problems. She states she has 4 daughters to of whom who live in town and 2 of whom who are out of town 1 in [place] and 1 returning to the area from [place]. Exam Vital Signs (past 8 hours): Fraction of Inspired Oxygen 40 Oxygen Delivery Method Nasal Cannula Oxygen Flow Rate 2.5 Narrative Exam Narrative: Gen: Alert, oriented, chronically ill appearing 80 y.o. female, appe ars comfortable HEENT: normocephalic, atraumatic, conjunctiva clear, sclera non-icteric, oral mucosa pink and moist Neck: supple, full ROM, no JVD, trachea is midline Resp: Lungs CTA, non-labored breathing CV: RRR, no murmur or rubs Abd: soft, non-tender, normoactive BTs Skin: no lesions or rashes, dry and intact Neuro: Alert and oriented X 4 w/no focal deficits. Speech clear and coherent. Extremities: moves all 4 extremities, is ambulatory, negative Annetta?s sign Psyche: normal mood and affect. Objective Labs Result Diagrams: 09/07/21 00:20 09/07/21 00:20 Labs: Laboratory Results - last 24 hr 09/06/21 09/06/21 09/06/21 09:26 12:00 18:05 WBC RBC Hgb Hct MCV MCH MCHC RDW Plt Count Neut % (Auto) Lymph % (Auto) [place] % (Auto) Eos % (Auto) Baso % (Auto) Neut # (Auto) Lymph # (Auto) [place] # (Auto) Eos # (Auto) Baso # (Auto) ABG pH 7.40 ABG pCO2 40.1 ABG pO2 74 L ABG HCO3 25 ABG Total CO2 26 ABG O2 Saturation 95 ABG Base Excess 0.0 FiO2 40 Sodium Potassium Chloride Carbon Dioxide BUN Creatinine Estimated GFR BUN/Creatinine Ratio Glucose Calcium Troponin I 0.121 H* 0.160 H* 09/07/21 09/07/21 09/07/21 00:20 00:20 00:20 WBC 10.1 RBC 3.82 L Hgb 11.7 L Hct 34.6 L MCV 90.5 MCH 30.6 MCHC 33.9 RDW 13.1 Plt Count 169 Neut % (Auto) 86.8 H Lymph % (Auto) 7.1 L [place] % (Auto) 4.2 Eos % (Auto) 1.4 L Baso % (Auto) 0.5 Neut # (Auto) 8800 H Lymph # (Auto) 700 L [place] # (Auto) 400 Eos # (Auto) 100 Baso # (Auto) 0 ABG pH ABG pCO2 ABG pO2 ABG HCO3 ABG Total CO2 ABG O2 Saturation ABG Base Excess FiO2 Sodium 133 L Potassium 3.4 Chloride 101 Carbon Dioxide 28 BUN 16 Creatinine 0.74 Estimated GFR > 60 BUN/Creatinine Ratio 21.6 Glucose 131 H Calcium 8.4 Troponin I 0.178 H* [facility] Medical History Anxiety (05/06/11) 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) Centrilobular emphysema Colitis (~2009) Colon cancer (~04/2019) Essential hypertension (05/06/11) Family history of alcoholism Family history of colon cancer Gastritis History of colitis (~2009) History of malignant neoplasm of left breast (2008) Iron deficiency anemia (07/30/15) Malignant neoplasm of skin of nose (02/15/14) Multiple pulmonary nodules Nontoxic uninodular goiter (02/15/14) Osteopenia (01/10/14) Symptomatic anemia Tooth ache Weight loss Surgical History H/O right hemicolectomy (~04/2019) History of cataract removal with insertion of prosthetic lens (05/11/11) History of cataract removal with insertion of prosthetic lens (04/27/11) History of esophagogastroduodenoscopy (EGD) (07/08/16) History of esophagogastroduodenoscopy (EGD) (~07/2017) History of mastectomy, subtotal (~2008) Status post breast biopsy (08/06/08) Status post breast lumpectomy (08/20/08) Status post colonoscopy (~08/2009) Status post colonoscopy (03/2015) Status post partial mastectomy (08/28/08) Family History Brother Heart disease Colon cancer Brother COPD (chronic obstructive pulmonary disease) Child Age: 52 Skin cancer Father CAD (coronary artery disease) Grandfather Stroke Mother Congestive heart failure Tobacco use disorder Cancer Sister Hypertension Breast cancer Daughter Breast cancer Social History marital status: unknown household members: none occupational status: previously employed Smoking Status: Former smoker alcohol intake: former Assessment & Plan Assessment & Plan narrative: Ms. Camarena is a 80W with PMH colon cancer, COPD who presents after a fall down stairs found to be hypoxemic on admission and appears to be slowly improving. 1. Acute hypoxemic respiratory failure -has chronic COPD, but currently no sob, cough, doubt acute flare -fall may be syncope, CTA ruled out PE -ECHO with normal EF, she has [id number] tricuspid regurgitation and mild pulmonary hypertension. No pericardial effusion seen or evidence of cardiac tamponade. -ordered ABG -no evidence of infiltrate, hold off antibiotics for now -COVID negative -troponin slightly increased today, likely due to chest trauma, continue q 6 hours 2. Trauma from fall -etiology of fall not clear, unsure if mechanical vs sycnopal vs other -complaining of left shoulder pain, xray shows old fracture -if shoulder pain persists consider CT scan -ordered norco for pain -PT ordered 3. Acute encephalopathy, resolving or resolved -unclear etiology -suspect concussion post fall -CT head negative -UA presumptive positive -start antibiotics and follow up cultures -lif neurologic decline plan for repeat head CT or MRI head 4. Possible UTI -UA positive with leuks, wbcs -urine culture pending -ceftriaxone 1gm daily for now 5. Colon cancer -onc stage 2a -s/p R hemicolectomy with no evidence of recurrence -follow up oncology as outpatient COVID-19 COVID-19 status: Negative Result date/Date tested (Pos, Neg/Pending): 09/06/21 Quality VTE Deep Vein Thrombosis/Pulmonary Embolism Present on Admission: No MIPS - Admit I confirm the patient?s Advance Care Plan is present, Code status is documented, Surrogate decision maker is in patient?s record [If Yes, STOP here]: Yes MIPS - DC The patient has current or prior documentation of left ventricular ejection fraction (LVEF) less than 40%, or moderate or severely depressed left ventricular systolic function.: No
[2021-09-07] MEDS: POTASSIUM CHLORIDE 20 MEQ TAB 40 MEQ PO (09:23)
[2021-09-07] MEDS: ACETAMINOPHEN 325 MG TABLET PO (09:24)
--- NOTE | 2021-09-07 09:37 | PT-IP ANOTE ---
Spoke with hospitalist physician to get an order for LUE sling. Entered order and applied sling to pt this morning for comfort.
--- NOTE | 2021-09-07 11:09 | CM.DPC ---
DCP Cont: Discussed patient during team rounds. Plan is for patient to go home with [facility]. Patient has supportive family at home. Had Dr. De La Cruz sign face to face, which has been filled out. She will work more with P.T. today. P: DCP to continue to follow. Plan is for patient to go home with [facility] Iraida Ross RN/[employer]
--- NOTE | 2021-09-07 16:28 | PT.IPTN ---
Physical Therapy Treatment Note M2 PT-IP Current Condition Start: 09/06/21 14:37 Freq: NEEDED Status: Active Protocol: Document 09/06/21 15:25 AW (Rec: 09/06/21 15:59 AW [id number]) Physical Therapy Current Condition Current Condition Evaluation Date 09/06/21 Treatment Diagnosis fall down stairs, L scapula, sternal, and rib fx (3-5); hypoxic resp fail Onset Date 09/05/21 M3 PT-IP Subjective Start: 09/06/21 14:37 Freq: NEEDED Status: Active Protocol: Document 09/07/21 16:28 AW (Rec: 09/07/21 17:03 AW [id number]) Subjective Physical Therapy Visit Type Type Treatment Note Visit Start Time 15:48 Visit Stop Time 16:28 Total Visit Minutes 40 Notes Troponin level continued to rise (0.121, 0.160, 0.178) but echo was reassuring, pt has no chest pain, and hospitalist continued to clear pt for activity. Troponin drawn just prior to PT today was down to 0.63 Physical Therapy Visit Comments Patient Comments Pt is willing to participate with PT, feels less dizzy today. Therapy Pain Assessment Pain When Pain Assessed During Mobility Pain Present Pain Present Denied Pain Location Left Knee Scale Used not quantified Pain Behaviors Facial Grimacing,Guarding, Wincing Pain Management Techniques Apply Cold Left Shoulder Scale Used Numeric (0 - 10) Pain Behaviors Facial Grimacing,Guarding, Wincing Pain Management Techniques Modification of Treatment M4 PT-IP Mobility and Gait Start: 09/06/21 14:37 Freq: NEEDED Status: Active Protocol: Document 09/07/21 16:28 AW (Rec: 09/07/21 17:03 AW [id number]) PT-Bed Mobility Assessment Supine to Sit Supine to Sit Moderate Assistance,1 Person Assistance Sit to Supine Sit to Supine Moderate Assistance,1 Person Assistance Scooting Scooting to Edge of Bed Minimal Assistance Scooting Up and Down in Bed Moderate Assistance PT-Transfer Assessment Comments Mobility Comments Pt was lying in bed as PT arrived. Received order for sling to LUE so issued and applied sling for comfort. BP was 124/70 HR 90 SpO2 95% on 2L/min NC. Pt attempted to sit up on the bed from flat position but was unable. With HOB elevated, pt needed mod A x 1 to sit up on the right side of the bed. In sitting, pt stated she felt better than yesterday and would like to attempt to stand and transfer to chair. O2 was removed for room air trial and pt maintained SpO2 90-92%. Chair was positioned on pt's right side and pt attempted to stand but was unable to bear weight on LLE, complaining of intense anterolateral knee pain just below the joint line . Pt attempted squat pivot transfer and stand pivot transfer but was unable to bear weight LLE with positive left knee buckling and pt calling out in pain with all attempts. Pt was assisted back to supine mod A and she needed assist and heavy use of bed features to reposition. BP was 127/60 HR 98 after activity. SpO2 was 90% on room air. PT reapplied O2 NC at 1L /min and informed RN. Pt left on continuous pulse oximetry. Gait Assessment Comments Gait Comments Unable today due to increased left knee pain with weightbearing. PT-Balance Assessment Sitting Balance and Reactions Static Sitting Balance Ability Good Dynamic Sitting Balance Ability Fair M5 PT-IP Objective Assessments Start: 09/06/21 14:37 Freq: NEEDED Status: Active Protocol: Document 09/06/21 15:25 AW (Rec: 09/06/21 15:59 AW [id number]) Orientation Orientation/Cognition Level of Alertness Confusional State Orientation Name,Place,Situation Comments Pt's daughter in room confirmed pt remains below baseline cognitively with increased confusion and fogginess. Gross Range of Motion Upper Extremity ROM Assessment Left Impaired Lower Extremity ROM Assessment Within Functional Limits Strength Upper Extremity Strength Assessment Left Impaired Comments Strength Comments BLE grossly 4/5 Sensation Assessment Sensation Gross Sensation WNL M6 PT-IP Treatment Start: 09/06/21 14:37 Freq: NEEDED Status: Active Protocol: Document 09/07/21 16:28 AW (Rec: 09/07/21 17:03 AW [id number]) Physical Therapy Treatment Education Education Provided Safety Equipment Issued Equipment Type and Company Per hospitalist order, applied sling from [employer] for LUE. M7 PT-IP Assessment and Plan Start: 09/06/21 14:37 Freq: NEEDED Status: Active Protocol: Document 09/07/21 16:28 AW (Rec: 09/07/21 17:03 AW [id number]) PT Summary Assessment and Plan Summary Impairments Pain,ROM,Strength,Balance, Cognition,Bed Mobility, Transfers,Gait Progress Towards Goals Slow Progress due to Pain,Slow Progress - Other Assessment Summary Nidhi remains confused and tangential in conversation. She required mod A for bed mobility today after application of LUE sling. She was unable to bear weight on her left leg due to increased knee pain. RN and hospitalist were informed of knee pain limiting mobility. Pt is not safe for discharge home and will require SNF rehab to improve strength and mobility independence. Goals Bed Mobility Goal Standby Assistance Transfer Goal Standby Assistance Gait Goal Standby Assistance Gait Distance 200 Days to Meet Goals 8 Frequency of Treatment Frequency Of Treatment Once a Day Treatment Plan Physical Therapy Treatment Plan Bed Mobility Training,Transfer Training,Gait Training, Therapeutic Exercise,Balance Retraining,Discharge Planning, Hot or Cold Pack,Neuromuscular Re-ed Other Recommendations and Next Treatment plan PM visit to coordinate Focus with daughter for possible training; if safe for gait, consider cane or HW Precautions Other Precautions protect left shoulder Recommendations To Nursing Amount of Assist Needed 2 Person Assist Discharge Recommendations PT Discharge Recommendations SNF Rehab Transportation Needs at Discharge Wheelchair/Cabulance,Stretcher /Ambulance
[2021-09-07 16:38] LABS: Troponin I 0.063 ng/mL (0.01-0.034)
[2021-09-07] MEDS: HYDROCODONE/ACET 5/325 TABLET 1 TAB PO (16:49)
--- NOTE | 2021-09-07 18:51 | DI.MRI.S_ITS ---
PROCEDURE: MR KNEE LT WO CON INDICATIONS: Traumatic fall down stairs,multiple fxs,can't bear wt L knee TECHNIQUE: Noncontrast sagittal PD fast spin echo and T2 fast spin echo with fat saturation, sagittal 3-D FLASH with fat saturation; coronal T1 spin echo and PD fast spin echo with fat saturation, and axial PD fast spin echo with fat saturation through the knee. COMPARISON: [facility], CR, XR KNEE LT 3V, 09/05/2021, 20:12. FINDINGS: Image quality: Excellent. Anterior Cruciate Ligament: Intact. Posterior Cruciate Ligament: Intact. Medial Collateral Ligament: Intact. Lateral Collateral Ligament: Intact. Medial Meniscus: Horizontal oblique tearing of the posterior horn and body of the medial meniscus extending to the outer third of the tibial articular surface. Lateral Meniscus: Intrasubstance signal is consistent with intrasubstance degeneration or a meniscal contusion without a well-defined tear identified. Medial and Lateral Tendons: The semimembranosus tendon insertions and meniscocapsular junction appear intact. Visualized portions of the pes anserinus tendons appear normal. No abnormal bursal fluid. The long and short heads of the biceps femoris tendon appear intact. The popliteus tendon appears intact. No signs of posterolateral corner injury. Iliotibial band appears normal. Anterior Structures: Mild patella zan. The distal quadriceps tendon is intact. There is no patellar subluxation. No patellar subluxation. No femoral trochlear dysplasia or ventral trochlear prominence. Small amount of edema is seen at the superolateral aspect of Hoffa's fat pad. Bones: There is a depressed and mildly comminuted fracture involving the majority of the lateral tibial plateau measuring up to 3.0 x 2.7 cm and axial dimensions with depression at the mid to posterior tibial plateau articular surface measuring up to 0.6 cm. Moderate surrounding osseous edema is seen. The fracture extends to the central eminence of the tibia at the lateral tibial spine and to the proximal tibiofibular joint. Overall, findings are most compatible with a Schatzker type 3 fracture. Small nondisplaced fracture of the fibular head is also seen with mild osseous edema. Mild osseous edema is seen at the medial aspect of the medial femoral condyle. Trace edema is seen at the anterior superolateral margin of the patella. Medial Femorotibial Cartilage: Generalized moderate grade partial-thickness cartilage thinning is seen throughout the weight-bearing portion of the medial compartment. Lateral Femorotibial Cartilage: Disruption of articular cartilage and focal fissuring are seen in the lateral tibial plateau at the site of the fractures. Generalized cartilage thinning is seen at the lateral femoral condyle. Patellofemoral Cartilage: Mild partial-thickness cartilage irregularity is seen at the median ridge/lateral facet of the patella with deep cartilage fissuring more inferiorly and subchondral cystic changes. Soft Tissues: A medium-sized joint effusion is present. Trace medial popliteal cyst. Soft tissue edema is seen posterior to the knee tracking along the gastrocnemius and soleus fascial planes and the popliteus tendon. The musculature surrounding the knee is normal in bulk. IMPRESSION: 1. Depressed mildly comminuted fracture of the lateral tibial plateau involving the central to posterior articular surface with up to 0.6 cm of articular surface depression and fissuring of the overlying articular cartilage. Fracture also extends into the central eminence of the tibia and the proximal tibiofibular joint. 2. Small nondisplaced fracture of the fibular head. Additional areas of mild trabecular bone injury are seen at the medial femoral condyle and superolateral patella. 3. Lateral meniscal contusion or intrasubstance degeneration without a definite tear. 4. Horizontal oblique tearing of the posterior horn and body of the medial meniscus extending to the outer third of the tibial articular surface. 5. Mild patella zan. Small amount of edema at the superolateral aspect of Hoffa's fat pad may be secondary to a contusion or lateral femoral condyle-patellar tendon friction syndrome. 6. Moderate joint effusion. Diffuse soft tissue edema is seen posterior to the knee. Dictated by: Vini Sullivan M.D. on 09/08/2021 at 9:40 Approved by: Vini Sullivan M.D. on 09/08/2021 at 9:57
[2021-09-07 21:50] LABS: Troponin I 0.067 ng/mL (0.01-0.034)
[2021-09-08] VITALS (8 sets, daily range): BP systolic 108–146; BP diastolic 57–82; PULSE 77–92; RESP 16–22; TEMP 36.4–36.8; O2SAT 93–97
[2021-09-08 05:40] LABS: Add Manual Diff / Slide Review NO; Basophils Absolute Auto 0 /uL (0-100); Basophils Percent Auto 0.5 % (0-2); Eosinophils Absolute Auto 400 /uL (0-450); Eosinophils Percent Auto 6.2 % (2-4); Hematocrit 32.4 % (36-46); Hemoglobin 11.1 g/dL (12.0-16.0); Lymphocytes Absolute Auto 900 /uL (1100-4500); Lymphocytes Percent Auto 15.7 % (25-40); Mean Corpuscular HGB Conc 34.3 % (30-36); Mean Corpuscular Volume 90.4 fL (80-100); Monocytes Absolute Auto 500 /uL (0-900); Monocytes Percent Auto 8.4 % (3-14); Neutrophils Absolute Auto 4100 /uL (1500-7000); Neutrophils Percent Auto 69.2 % (50-75); Platelet Count 157 X10^3/uL (150-400); Red Blood Cell Count 3.58 X10^6/uL (4.0-5.2); Red Cell Distribution Width 13.1 % (11.6-14.8); White Blood Cell Count 5.9 X10^3/uL (4.5-11.0)
[2021-09-08] MEDS: cefTRIAXone 1,000 MG in SODIUM CHLORIDE 0.9% 100 ML 200 MG IV (06:06)
[2021-09-08 06:19] LABS: BUN Creatinine Ratio 22.9 (6-22); Blood Urea Nitrogen 16 mg/dL (7-17); Calcium 8.3 mg/dL (8.4-10.2); Carbon Dioxide 29 mmol/L (22-32); Chloride 99 mmol/L (98-107); Estimated Glomerular Filt Rate > 60 mL/min (>60); Glucose 112 mg/dL (80-110); HEMOLYSIS < 15 (0-50); Potassium 4.1 mmol/L (3.4-5.1); Sodium 132 mmol/L (137-145)
[2021-09-08] MEDS: HYDROCODONE/ACET 5/325 TABLET 1 TAB PO ×3 (09:19→20:58)
[2021-09-08] MEDS: HEPARIN 5,000 UNIT/ML VIAL 5000 UNIT SUBCUT ×2 (09:19→20:58)
--- NOTE | 2021-09-08 11:29 | PT-IP ANOTE ---
Spoke w/ RN - pt on strict bed rest d/t identified fractures through MRI and ortho consult is pending. Will hold until ortho consult completed.
--- NOTE | 2021-09-08 11:31 | CM.DPC ---
DCP Cont: Discussed patient during team rounds. Hospitalist, Dr. Sanderson, indicated, he felt that patient should go to long-term facility, due to non-weight bearing status. Met with patient and daughter, Marcia. Daughter works for [employer]. Gave her Medicare Choice List. Patient stated she really doesn't want to go, wants home, but will think about it. Patient would not want any of the [facility] or [facility]. Wrote name of this [facility] Facilities Locator on Medicare Choice List, daughter will talk it over with other family, but really, wants to try to get her home. Patient had MRI of leg, and is currently non-weight bearing. P: DCP to continue to follow. Can reach out to family again tomorrow. [facility] has been their preference. Iraida Ross RN/Clamper
--- NOTE | 2021-09-08 17:37 | P.PN_ITS ---
Subjective Subjective Date Patient Seen: 09/08/21 Interval history: Patient feels much better today. Still having left knee pain. Breathing difficulty significantly improved. Pain appropriately controlled. Denies any nausea or vomiting. Diet tolerated well. I discussed with orthopedic surgeon. Recommending immobilizer. No further surgical intervention at this time. Called family to give an update, left a voicemail. Exam Vital Signs (past 8 hours): - 09/08/21 12:44 09/08/21 15:50 Temperature 98.3 F 98 F Pulse Rate 80 78 Respiratory Rate 16 16 Blood Pressure 115/70 118/65 Pulse Oximetry 95 96 Oxygen Flow Rate 1 1 Fraction of Inspired Oxygen 28 Oxygen Delivery Method Nasal Cannula Oxygen Flow Rate 1 Narrative Exam Narrative: Patient seems to be in mild discomfort related to pain when moving her extremity. Unable to work with the PT because of the pain. She is in a sling for her left upper extremity. Some bruises noted. Decreased breath sounds bilateral and some wheeze noted. Constitutional, HEENT, cardiovascular, psych, neuro, skin, GI examination done, positive findings noted above. 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) Centrilobular emphysema Colitis (~2009) Colon cancer (~04/2019) Essential hypertension (05/06/11) Family history of alcoholism Family history of colon cancer Gastritis History of colitis (~2009) History of malignant neoplasm of left breast (2008) Iron deficiency anemia (07/30/15) Malignant neoplasm of skin of nose (02/15/14) Multiple pulmonary nodules Nontoxic uninodular goiter (02/15/14) Osteopenia (01/10/14) Symptomatic anemia Tooth ache Weight loss Surgical History H/O right hemicolectomy (~04/2019) History of cataract removal with insertion of prosthetic lens (05/11/11) History of cataract removal with insertion of prosthetic lens (04/27/11) History of esophagogastroduodenoscopy (EGD) (07/08/16) History of esophagogastroduodenoscopy (EGD) (~07/2017) History of mastectomy, subtotal (~2008) Status post breast biopsy (08/06/08) Status post breast lumpectomy (08/20/08) Status post colonoscopy (~08/2009) Status post colonoscopy (03/2015) Status post partial mastectomy (08/28/08) Family History Brother Heart disease Colon cancer Brother COPD (chronic obstructive pulmonary disease) Child Age: 52 Skin cancer Father CAD (coronary artery disease) Grandfather Stroke Mother Congestive heart failure Tobacco use disorder Cancer Sister Hypertension Breast cancer Daughter Breast cancer Social History marital status: unknown household members: none occupational status: previously employed Smoking Status: Former smoker alcohol intake: former Assessment & Plan Assessment & Plan narrative: Acute hypoxemic respiratory failure most likely secondary to COPD exacerbation, improving Trauma from fall causing multiple fractures including tibial and fibular fracture -orthopedics is following, no surgical intervention required Acute encephalopathy, resolved, Unclear etiology, Suspect concussion post fall No UTI during this admission. No Acute pulmonary Edema during this admission. Hx of Colon cancer s/p s/p R hemicolectomy with no evidence of recurrence After placing knee immobilizer, nonweightbearing status, work with the PT, potentially rehab versus home physical therapy based on family discussions tomorrow. Time Spent With Patient Critical Care time: I spent a total of [] minutes of critical care time on this patient's care today; this time is exclusive of procedural time. Quality VTE Deep Vein Thrombosis/Pulmonary Embolism Present on Admission: No
--- NOTE | 2021-09-08 19:24 | PM.CN ---
History of Present Illness Consult details Date Patient Seen: 09/08/21 Time Patient Seen: 19:24 Chief complaint: fall down 10 steps/ No thinners Narrative: The patient is a 80 year old woman who was climbing a flight of stairs when she slipped and fell down approximately 10 steps on September 05, 2021. She had pain along her entire left side and was seen for evaluation in the [facility] ED. Multiple radiographs were obtained and she was admitted to the hospitalist service. A follow up MRI was ordered today which showed a tibial plateau fracture on the left and orthopedic consultation has been requested. Meds Home Medications and Allergies Home Medications Medication Instructions Recorded Confirmed Type MULTIVITAMIN (#MULTIPLE VITAMINS) 1 cap PO Q DAY ##0 05/07/11 09/06/21 History inhalational spacing device #1 ea 06/25/19 09/06/21 Rx (Flexichamber spacer) Lactobacillus acidophilus 10 1 cell DAILY 10/18/19 09/06/21 History billion cell capsule (Probiotic) propranolol 60 mg tablet 60 mg PO BID #180 tabs 12/09/20 09/06/21 Rx albuterol sulfate 90 mcg/actuation 1 puff inhalation Q3-4H PRN 03/30/21 09/06/21 Rx aerosol inhaler shortness of breath or wheezing #6.7 grams clonazepam 0.5 mg tablet 0.5 mg PO BEDTIME PRN anxiety, 03/30/21 09/06/21 Rx insomnia 30 days #30 tabs citalopram 40 mg tablet 40 mg PO DAILY 09/06/21 09/06/21 History omeprazole 40 mg capsule,delayed 40 mg PO DAILY 09/06/21 09/06/21 History release Allergies Allergy/AdvReac Type Severity Reaction Status Date / Time No Known Drug Allergies Allergy Verified 06/24/21 10:21 Review of Systems Review of Systems Narrative: No prior injury to knee. Has history of prior left shoulder fracture. Exam Vital Signs (past 8 hours): - 09/08/21 12:44 09/08/21 15:50 Temperature 98.3 F 98 F Pulse Rate 80 78 Respiratory Rate 16 16 Blood Pressure 115/70 118/65 Pulse Oximetry 95 96 Oxygen Flow Rate 1 1 Fraction of Inspired Oxygen 28 Oxygen Delivery Method Nasal Cannula Oxygen Flow Rate 1 Narrative Exam Narrative: No tenderness of cervical spine. Tender along the scapula on the left only, no tenderness over the proximal humerus, elbow, forearm, wrist or hand. No pain on log roll of left hip, no pain on palpation of thigh on the left, tender over lateral tibial plateau. No tenderness on pelvic compression. Right upper and lower extremities nontender. Objective Labs Result Diagrams: 09/08/21 05:00 09/08/21 05:00 Labs: Laboratory Results - last 24 hr 09/07/21 09/08/21 09/08/21 21:20 05:00 05:00 WBC 5.9 RBC 3.58 L Hgb 11.1 L Hct 32.4 L MCV 90.4 MCH 31.0 MCHC 34.3 RDW 13.1 Plt Count 157 Neut % (Auto) 69.2 Lymph % (Auto) 15.7 L Falls % (Auto) 8.4 Eos % (Auto) 6.2 H Baso % (Auto) 0.5 Neut # (Auto) 4100 Lymph # (Auto) 900 L Falls # (Auto) 500 Eos # (Auto) 400 Baso # (Auto) 0 Sodium 132 L Potassium 4.1 Chloride 99 Carbon Dioxide 29 BUN 16 Creatinine 0.70 Estimated GFR > 60 BUN/Creatinine Ratio 22.9 H Glucose 112 H Calcium 8.3 L Troponin I 0.067 H Multiple radiographs, CT and MRI reviewed: 09/05/21 left knee films in retrospect show mildly displaced lateral tibial plateau fracture. Left shoulder films show healed proximal humerus fracture and displaced fracture of the scapular body without extension to the glenoid neck. Left elbow films are negative. Cervical spine CT shows degenerative disc disease, but no fractures. CT of chest, abdomen and pelvis confirms the left scapular fracture. MRI scan of the knee from 09/18/21 shows mildly depressed lateral tibial plateau fracture. 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) Centrilobular emphysema Colitis (~2009) Colon cancer (~04/2019) Essential hypertension (05/06/11) Family history of alcoholism Family history of colon cancer Gastritis History of colitis (~2009) History of malignant neoplasm of left breast (2008) Iron deficiency anemia (07/30/15) Malignant neoplasm of skin of nose (02/15/14) Multiple pulmonary nodules Nontoxic uninodular goiter (02/15/14) Osteopenia (01/10/14) Symptomatic anemia Tooth ache Weight loss Surgical History H/O right hemicolectomy (~04/2019) History of cataract removal with insertion of prosthetic lens (05/11/11) History of cataract removal with insertion of prosthetic lens (04/27/11) History of esophagogastroduodenoscopy (EGD) (07/08/16) History of esophagogastroduodenoscopy (EGD) (~07/2017) History of mastectomy, subtotal (~2008) Status post breast biopsy (08/06/08) Status post breast lumpectomy (08/20/08) Status post colonoscopy (~08/2009) Status post colonoscopy (03/2015) Status post partial mastectomy (08/28/08) Family History Brother Heart disease Colon cancer Brother COPD (chronic obstructive pulmonary disease) Child Age: 52 Skin cancer Father CAD (coronary artery disease) Grandfather Stroke Mother Congestive heart failure Tobacco use disorder Cancer Sister Hypertension Breast cancer Daughter Breast cancer Social History marital status: unknown household members: none occupational status: previously employed Tobacco & Substance Use Smoking Status: Former smoker alcohol intake: former Assessment & Plan Assessment & Plan narrative: The patient has had a fall downstairs with two resulting fractures, the left scapular body and the left lateral tibial plateau. 1. The scapular fracture can be treated with benign neglect, she can use the arm as tolerated, including to weight bear on the left arm for the use of a walker. 2. The tibial plateau fracture should be treated in a hinged knee brace with 6 weeks of toe touch weight bearing followed by progressive weight bearing in the brace for an additional 6 weeks. I will order the hinged knee brace from [facility]. The patient should follow up in my office two weeks after discharge. Time Spent With Patient Time with patient: 30 to 49 minutes with 50% spent counseling/coordinating care Critical Care time: I spent a total of [] minutes of critical care time on this patient's care today; this time is exclusive of procedural time.
[2021-09-09] VITALS (7 sets, daily range): BP systolic 137–164; BP diastolic 69–76; PULSE 81–91; RESP 16–18; TEMP 36.6–36.9; O2SAT 92–97
[2021-09-09] MEDS: cefTRIAXone 1,000 MG in SODIUM CHLORIDE 0.9% 100 ML 200 MG IV (05:31)
[2021-09-09] MEDS: HYDROCODONE/ACET 5/325 TABLET 1 TAB PO ×3 (05:40→21:36)
[2021-09-09 05:55] LABS: Add Manual Diff / Slide Review NO; Basophils Absolute Auto 100 /uL (0-100); Eosinophils Absolute Auto 300 /uL (0-450); Eosinophils Percent Auto 5.3 % (2-4); Hematocrit 33.6 % (36-46); Hemoglobin 11.2 g/dL (12.0-16.0); Lymphocytes Absolute Auto 800 /uL (1100-4500); Lymphocytes Percent Auto 17.1 % (25-40); Mean Corpuscular HGB Conc 33.4 % (30-36); Mean Corpuscular Hemoglobin 30.5 PG (26-34); Mean Corpuscular Volume 91.3 fL (80-100); Monocytes Absolute Auto 400 /uL (0-900); Monocytes Percent Auto 7.6 % (3-14); Neutrophils Absolute Auto 3300 /uL (1500-7000); Platelet Count 183 X10^3/uL (150-400); Red Blood Cell Count 3.68 X10^6/uL (4.0-5.2); Red Cell Distribution Width 12.8 % (11.6-14.8); White Blood Cell Count 4.9 X10^3/uL (4.5-11.0)
[2021-09-09 06:22] LABS: BUN Creatinine Ratio 23.8 (6-22); Blood Urea Nitrogen 15 mg/dL (7-17); Calcium 8.3 mg/dL (8.4-10.2); Carbon Dioxide 27 mmol/L (22-32); Chloride 98 mmol/L (98-107); Estimated Glomerular Filt Rate > 60 mL/min (>60); Glucose 112 mg/dL (80-110); HEMOLYSIS < 15 (0-50); Potassium 4.1 mmol/L (3.4-5.1); Sodium 131 mmol/L (137-145)
[2021-09-09] MEDS: HEPARIN 5,000 UNIT/ML VIAL 5000 UNIT SUBCUT ×2 (08:12→20:28)
[2021-09-09] MEDS: HYDROMORPHONE 0.5 MG INJ IV (11:24)
--- NOTE | 2021-09-09 12:59 | PT.IPRE ---
Addendum entered and electronically signed by Maryse Dennis, PT 09/09/21 14:45: Changed frequency to 1x/day, as pt was too tired after AM session to tolerate PM session and is now amenable to d/cing to SNF. Original Note: Current Diagnoses Acute respiratory failure with hypoxia (09/06/21) Surgical History (Last Reviewed 09/08/21 @ 19:27 by Wagner Urbina MD) H/O right hemicolectomy (~04/2019) History of cataract removal with insertion of prosthetic lens (05/11/11) History of cataract removal with insertion of prosthetic lens (04/27/11) History of esophagogastroduodenoscopy (EGD) (07/08/16) History of esophagogastroduodenoscopy (EGD) (~07/2017) History of mastectomy, subtotal (~2008) Status post breast biopsy (08/06/08) Status post breast lumpectomy (08/20/08) Status post colonoscopy (~08/2009) Status post colonoscopy (03/2015) Status post partial mastectomy (08/28/08) Medical History (Last Reviewed 09/08/21 @ 19:27 by Wagner Urbina MD) Anxiety (05/06/11) 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) Centrilobular emphysema Colitis (~2009) Colon cancer (~04/2019) Essential hypertension (05/06/11) Family history of alcoholism Family history of colon cancer Gastritis History of colitis (~2009) History of malignant neoplasm of left breast (2008) Iron deficiency anemia (07/30/15) Malignant neoplasm of skin of nose (02/15/14) Multiple pulmonary nodules Nontoxic uninodular goiter (02/15/14) Osteopenia (01/10/14) Symptomatic anemia Tooth ache Weight loss Physical Therapy Inpatient Evaluation/Re-Eval M1 PT/OT-IP Prior Functional Status Start: 09/06/21 14:37 Freq: NEEDED Status: Active Protocol: Document 09/09/21 12:27 AMB (Rec: 09/09/21 12:59 AMB [id number]) Medical Review Prior Functional Status Medical History Reviewed Yes Communication WNL. Pt is an effective verbal communicator. Mobility and Gait Independent. Pt does not use any assistive device. She regularly walks her small dog and denies falls. Activities of Daily Living and IADL's Independent with all ADL's. Pt drives, shops, cooks, and cleans on her own. Prior Functional Level (Other details) Pt has history of colon cancer with hemicolectomy in 2019. Social History Household Members none Living Arrangements Apartment/Condo Number of Floors (Floors) One Floor Number of Stairs To Enter/Railing? Pt lives in 1st floor apartment with no stairs to enter. She has friends in the building who live on the second floor. Pt fell down those stairs. 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 She lived with her daughter, Savana, for ~2 years following hemicolectomy. She moved in to [facility] [employer] [place] in April of this year. Her daughters, Pia Sawant, and Mirna are planning to coordinate care. M2 PT-IP Current Condition Start: 09/06/21 14:37 Freq: NEEDED Status: Active Protocol: Document 09/09/21 12:27 AMB (Rec: 09/09/21 12:59 AMB [id number]) Physical Therapy Current Condition Current Condition Evaluation Date 09/06/21 Treatment Diagnosis fall down stairs, L scapula, sternal, and rib fx (3-5); hypoxic resp fail Onset Date 09/05/21 M3 PT-IP Subjective Start: 09/06/21 14:37 Freq: NEEDED Status: Active Protocol: Document 09/09/21 12:27 AMB (Rec: 09/09/21 12:59 AMB [id number]) Subjective Physical Therapy Visit Type Type Re-Evaluation Visit Start Time 10:45 Visit Stop Time 12:00 Total Visit Minutes 75 Notes L tibial plateau fracture. Toe touch WB [address] Urbina' note. Hinged knee brace (unlocked) for all weightbearing for 3 weeks. Physical Therapy Visit Comments Patient Comments I want to go home Therapy Pain Assessment Pain When Pain Assessed During Mobility Pain Present Pain Present Pain Reported M4 PT-IP Mobility and Gait Start: 09/06/21 14:37 Freq: NEEDED Status: Active Protocol: Document 09/09/21 12:27 AMB (Rec: 09/09/21 12:59 AMB [id number]) PT-Bed Mobility Assessment Rolling Type of Rolling Log Rolling,Roll to Right Level of Assist Moderate Assistance,1 Person Assistance Supine to Sit Supine to Sit Moderate Assistance,1 Person Assistance Sit to Supine Sit to Supine Moderate Assistance,1 Person Assistance Scooting Scooting to Edge of Bed Minimal Assistance Scooting Up and Down in Bed Moderate Assistance PT-Transfer Assessment Sit to and From Stand Sit to and from Stand Moderate Assistance Equipment Transfer Assistive Device Gait Belt,Front Wheeled Walker Comments Mobility Comments Received order for hinged knee brace. Fit and applied. Pt to wear for 3 weeks when weightbearing, can wear longer if needed. Pt was on 1.5L O2 . Is not on O2 at home. Nursing advised to d/c to see how pt tolerates. Pt SpO2 96% at rest, when up did drop down to 89%, but came back up to 94% with cues to breathe and rest. Attempted transferring from bed to bedside commode, but pt unable to shift weight at all to the left to transfer. M5 PT-IP Objective Assessments Start: 09/06/21 14:37 Freq: NEEDED Status: Active Protocol: Document 09/09/21 12:27 AMB (Rec: 09/09/21 12:59 AMB [id number]) Gross Range of Motion Upper Extremity ROM Assessment Left Impaired Lower Extremity ROM Assessment Within Functional Limits Strength Upper Extremity Strength Assessment Left Impaired Comments Strength Comments Needs assist with L LE to get it into bed, toe touch weightbearing only. M6 PT-IP Treatment Start: 09/06/21 14:37 Freq: NEEDED Status: Active Protocol: Document 09/09/21 12:27 AMB (Rec: 09/09/21 12:59 AMB [id number]) Physical Therapy Treatment Equipment Issued Equipment Type and Company Sling is for comfort, patient is WBAT in L UE per Dr. Urbina note. Hinged knee brace applied, needs to wear it with weightbearing for 3 weeks, toe touch weightbearing for 6 weeks. M7 PT-IP Assessment and Plan Start: 09/06/21 14:37 Freq: NEEDED Status: Active Protocol: Document 09/09/21 12:27 AMB (Rec: 09/09/21 12:59 AMB [id number]) PT Summary Assessment and Plan Potential Rehabilitation Potential Good Status of Condition at Evaluation Evolving Summary Impairments Pain,ROM,Strength,Balance, Cognition,Bed Mobility, Transfers,Gait Progress Towards Goals Slow Progress - Other Assessment Summary Nidhi remains confused and tangential in conversation. She required mod A for bed mobility today after application of L LE hinged brace. She was able to weightbear very limited on L LE with FWW. Discussed toe touch weightbearing at length, and pt was likely weightbearing more than she should through L LE when attempting transfer to bedside commode, which was unsuccessful. Discussed with patient and daughter that patient needs to be able to transfer to d/c home. Even if pt were to get w/c, she needs to be able to transfer from w /c to bedside commode with assistance, which she is currently unable to do. PT will continue to see patient while she is in the hospital, but pt will need to go to SNF rehab if she is unable to safely transfer. Given her dizziness and SpO2 and inability to transfer would continue to recommend SNF placement, despite family very much wanting pt to go [facility]. Goals Bed Mobility Goal Standby Assistance Transfer Goal Standby Assistance Gait Goal Standby Assistance Gait Distance 200 Days to Meet Goals 8 Frequency of Treatment Frequency Of Treatment Twice a Day Treatment Plan Physical Therapy Treatment Plan Bed Mobility Training,Transfer Training,Gait Training, Therapeutic Exercise,Balance Retraining,Discharge Planning, Hot or Cold Pack,Neuromuscular Re-ed Other Recommendations and Next Treatment plan PM visit to coordinate Focus with daughter for possible training; if pt unable to transfer from bed to commode safely then pt will need SNF placement. Precautions Other Precautions TTWB L LE for 6 weeks, hinged knee brace during WB. protect left shoulder, but is WBAT through it for FWW and can move it actively. Recommendations To Nursing Amount of Assist Needed 2 Person Assist Discharge Recommendations PT Discharge Recommendations SNF Rehab Transportation Needs at Discharge Wheelchair/Cabulance,Stretcher /Ambulance
--- NOTE | 2021-09-09 13:37 | CM.DPNOTE ---
Sent referrals to the following SNFs: [facility], [facility], [facility]. Alis Shrestha [facility] Assist.
--- NOTE | 2021-09-09 13:59 | PT-IP ANOTE ---
Attempted to see pt at 13:55, pt refused PT due to fatigue from earlier treatment. Pt now agreeable to go to SNF, which has been highly recommended by PT d/t pts currently inability to perform transfer.
--- NOTE | 2021-09-09 14:56 | CM.DPC ---
DCP Note PT continues to recommend SNF rehab for patient due to concern for her safety and patient's inability to transfer due to her fractures. Patient is agreeable to SNF if recommended. GIANT TIRE REPAIRER reviews the above with daughter who indicates agreement and understanding. Daughter states that patient has several supports when it is safe for patient to return to home. GIANT TIRE REPAIRER updates Juan Miguel at [facility] regarding the change in POC. Daughter Isabel states that patient will not have any further visitors because she has to return to work, GIANT TIRE REPAIRER attempted to switch visitors for patient so other daughter could visit. Due to davi Snell child care associate has faxed referrals to the following SNFs for review: [facility], [facility], [facility]. [facility] states that they may have an opening for patient in a few days. GIANT TIRE REPAIRER to fill out PASSR. Plan: DCP to continue search for SNF rehab for patient upon d/c. ALIREZA Chaudhary
--- NOTE | 2021-09-09 17:52 | PM.PN.1 ---
Subjective Subjective Date Patient Seen: 09/08/21 Interval history: Patient feels much better today. Still having left knee pain. Pain appropriately controlled. Denies any nausea or vomiting. Diet tolerated well. Exam Vital Signs (past 8 hours): - 09/09/21 11:19 09/09/21 17:16 Temperature 98.3 F 98.5 F Pulse Rate 91 H 89 Respiratory Rate 18 18 Blood Pressure 137/76 164/75 H Pulse Oximetry 96 92 Oxygen Flow Rate 2 0 Fraction of Inspired Oxygen 28 Oxygen Delivery Method Nasal Cannula Oxygen Flow Rate 0 Narrative Exam Narrative: No tenderness of cervical spine. Tender along the scapula on the left only, no tenderness over the proximal humerus, elbow, forearm, wrist or hand. No pain on log roll of left hip, no pain on palpation of thigh on the left, tender over lateral tibial plateau. No tenderness on pelvic compression. Right upper and lower extremities nontender. Seems to be comfortable. Left upper extremity brace. Constitutional, HEENT, cardiovascular, pulmonary, GI, neuro exam done, positive findings as mentioned above. Objective Labs Result Diagrams: 09/09/21 05:16 09/09/21 05:16 [facility] Medical History Anxiety (05/06/11) 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) Centrilobular emphysema Colitis (~2009) Colon cancer (~04/2019) Essential hypertension (05/06/11) Family history of alcoholism Family history of colon cancer Gastritis History of colitis (~2009) History of malignant neoplasm of left breast (2008) Iron deficiency anemia (07/30/15) Malignant neoplasm of skin of nose (02/15/14) Multiple pulmonary nodules Nontoxic uninodular goiter (02/15/14) Osteopenia (01/10/14) Symptomatic anemia Tooth ache Weight loss Surgical History H/O right hemicolectomy (~04/2019) History of cataract removal with insertion of prosthetic lens (05/11/11) History of cataract removal with insertion of prosthetic lens (04/27/11) History of esophagogastroduodenoscopy (EGD) (07/08/16) History of esophagogastroduodenoscopy (EGD) (~07/2017) History of mastectomy, subtotal (~2008) Status post breast biopsy (08/06/08) Status post breast lumpectomy (08/20/08) Status post colonoscopy (~08/2009) Status post colonoscopy (03/2015) Status post partial mastectomy (08/28/08) Family History Brother Heart disease Colon cancer Brother COPD (chronic obstructive pulmonary disease) Child Age: 52 Skin cancer Father CAD (coronary artery disease) Grandfather Stroke Mother Congestive heart failure Tobacco use disorder Cancer Sister Hypertension Breast cancer Daughter Breast cancer Social History marital status: unknown household members: none occupational status: previously employed Smoking Status: Former smoker alcohol intake: former Assessment & Plan Assessment & Plan narrative: The patient has had a fall downstairs with two resulting fractures, the left scapular body and the left lateral tibial plateau. Acute hypoxemic respiratory failure most likely secondary to COPD exacerbation, improving Trauma from fall causing multiple fractures including tibial and fibular fracture -orthopedics is following, no surgical intervention required Acute encephalopathy, resolved, Unclear etiology, Suspect concussion post fall No UTI during this admission. No Acute pulmonary Edema during this admission. Hx of Colon cancer s/p s/p R hemicolectomy with no evidence of recurrence The tibial plateau fracture should be treated in a hinged knee brace with 6 weeks of toe touch weight bearing followed by progressive weight bearing in the brace for an additional 6 weeks. Placement versus home health. Discharge planning in progress. Time Spent With Patient Time with patient: 30 to 49 minutes with 50% spent counseling/coordinating care Critical Care time: I spent a total of [] minutes of critical care time on this patient's care today; this time is exclusive of procedural time. Quality VTE Deep Vein Thrombosis/Pulmonary Embolism Present on Admission: No
[2021-09-10] VITALS (8 sets, daily range): BP systolic 127–148; BP diastolic 66–84; PULSE 86–105; RESP 16–22; TEMP 36.4–37.6; O2SAT 94–100
[2021-09-10] MEDS: cefTRIAXone 1,000 MG in SODIUM CHLORIDE 0.9% 100 ML 200 MG IV (05:52)
[2021-09-10] MEDS: HYDROCODONE/ACET 5/325 TABLET 1 TAB PO ×3 (06:25→18:49)
--- NOTE | 2021-09-10 07:58 | PM.PN.1 ---
Subjective Subjective Date Patient Seen: 09/10/21 Time Patient Seen: 07:58 Interval history: Patient is complaining of [id number] left scapular pain and left knee pain. She denies any numbness or tingling. She has her hinged knee brace already and is working with physical therapy for toe-touch weight-bearing. The patient will likely be discharged to SNF, pending primary team recommendation. Exam Vital Signs (past 8 hours): - 09/10/21 06:00 09/10/21 07:30 09/10/21 07:37 Temperature 98.5 F 99.6 F Pulse Rate 86 89 Respiratory Rate 17 16 Blood Pressure 127/66 148/78 H Pulse Oximetry 94 95 95 Oxygen Delivery Method Room Air Oxygen Flow Rate 0 0 Fraction of Inspired Oxygen 28 Oxygen Delivery Method Room Air Oxygen Flow Rate 0 Narrative Exam Narrative: Pleasant 80-year-old female, resting comfortably in bed, no acute distress. Bilateral upper extremity: Motor function is grossly intact, sensation is grossly intact to light touch. Range of motion with elbow and wrist is within normal limits. She has triggering of her fingers. Bilateral lower extremity: Motor function is grossly intact, sensation is grossly intact to light touch, calves are soft and nontender to palpation. Hinged knee brace is at bedside. Objective Labs Result Diagrams: 09/09/21 05:16 09/09/21 05:16 [facility] Medical History Anxiety (05/06/11) 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) Centrilobular emphysema Colitis (~2009) Colon cancer (~04/2019) Essential hypertension (05/06/11) Family history of alcoholism Family history of colon cancer Gastritis History of colitis (~2009) History of malignant neoplasm of left breast (2008) Iron deficiency anemia (07/30/15) Malignant neoplasm of skin of nose (02/15/14) Multiple pulmonary nodules Nontoxic uninodular goiter (02/15/14) Osteopenia (01/10/14) Symptomatic anemia Tooth ache Weight loss Surgical History H/O right hemicolectomy (~04/2019) History of cataract removal with insertion of prosthetic lens (05/11/11) History of cataract removal with insertion of prosthetic lens (04/27/11) History of esophagogastroduodenoscopy (EGD) (07/08/16) History of esophagogastroduodenoscopy (EGD) (~07/2017) History of mastectomy, subtotal (~2008) Status post breast biopsy (08/06/08) Status post breast lumpectomy (08/20/08) Status post colonoscopy (~08/2009) Status post colonoscopy (03/2015) Status post partial mastectomy (08/28/08) Family History Brother Heart disease Colon cancer Brother COPD (chronic obstructive pulmonary disease) Child Age: 52 Skin cancer Father CAD (coronary artery disease) Grandfather Stroke Mother Congestive heart failure Tobacco use disorder Cancer Sister Hypertension Breast cancer Daughter Breast cancer Social History marital status: unknown household members: none occupational status: previously employed Smoking Status: Former smoker alcohol intake: former Assessment & Plan Assessment & Plan narrative: The patient has had a fall downstairs with two resulting fractures, the left scapular body and the left lateral tibial plateau.? 1. The scapular fracture can be treated with benign neglect, she can use the arm as tolerated, including to weight bear on the left arm for the use of a walker. 2. The tibial plateau fracture should be treated in a hinged knee brace with 6 weeks of toe touch weight bearing followed by progressive weight bearing in the brace for an additional 6 weeks.? -follow-up with Dr. Urbina in 2 weeks -continue to work with PT. Toe-touch weight-bearing with walker and hinged knee brace x6 weeks -DVT prophylaxis x6 weeks, per Hospitalist upon DC -DC to SNF, pending hospitalist recommendation -orthopedics to sign off at this point, please do not hesitate to re-consult with any further questions or concerns. Time Spent With Patient Critical Care time: I spent a total of [] minutes of critical care time on this patient's care today; this time is exclusive of procedural time. Quality VTE Deep Vein Thrombosis/Pulmonary Embolism Present on Admission: No
[2021-09-10] MEDS: PANTOPRAZOLE DR 40 MG TABLET PO (09:05)
[2021-09-10] MEDS: HEPARIN 5,000 UNIT/ML VIAL 5000 UNIT SUBCUT ×2 (09:05→20:18)
--- NOTE | 2021-09-10 12:03 | PC.NURSE ---
Shift note Patient alert and oriented with pleasant affect. Medicating for intermittant pain to left shoulder per orders. Able to move all extremities and move self in bed. Remains on room air without complication. Uses call light appropriately.
--- NOTE | 2021-09-10 15:19 | PM.PN.1 ---
Subjective Subjective Date Patient Seen: 09/10/21 Time Patient Seen: 07:58 Interval history: Patient feels much better today, decreased pain. Walked with the physical therapy. I called her daughter Gabriella at [phone], explained care process. Patient tolerated diet very well. She is not so excited and going to rehab but she understands the safety concerns, agrees with disposition. Denies any nausea, vomiting. No fevers no chills Exam Vital Signs (past 8 hours): - 09/10/21 07:30 09/10/21 07:37 09/10/21 11:41 Temperature 99.6 F 98.5 F Pulse Rate 89 97 H Respiratory Rate 16 22 Blood Pressure 148/78 H 148/73 H Pulse Oximetry 95 95 95 Oxygen Delivery Method Room Air Oxygen Flow Rate 0 0 Fraction of Inspired Oxygen 28 Oxygen Delivery Method Room Air Oxygen Flow Rate 0 Narrative Exam Narrative: Resting comfortably in bed, no acute distress. Hinged knee brace is at bedside. Left upper extremity is in brace Some tenderness when moving her left lower extremity especially at the knee. Trace pedal edema noted Constitutional, HEENT, cardiovascular, respiratory, neuro, psych, skin examination done, positive findings noted above. Objective Labs Result Diagrams: 09/09/21 05:16 09/09/21 05:16 [facility] Medical History Anxiety (05/06/11) 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) Centrilobular emphysema Colitis (~2009) Colon cancer (~04/2019) Essential hypertension (05/06/11) Family history of alcoholism Family history of colon cancer Gastritis History of colitis (~2009) History of malignant neoplasm of left breast (2008) Iron deficiency anemia (07/30/15) Malignant neoplasm of skin of nose (02/15/14) Multiple pulmonary nodules Nontoxic uninodular goiter (02/15/14) Osteopenia (01/10/14) Symptomatic anemia Tooth ache Weight loss Surgical History H/O right hemicolectomy (~04/2019) History of cataract removal with insertion of prosthetic lens (05/11/11) History of cataract removal with insertion of prosthetic lens (04/27/11) History of esophagogastroduodenoscopy (EGD) (07/08/16) History of esophagogastroduodenoscopy (EGD) (~07/2017) History of mastectomy, subtotal (~2008) Status post breast biopsy (08/06/08) Status post breast lumpectomy (08/20/08) Status post colonoscopy (~08/2009) Status post colonoscopy (03/2015) Status post partial mastectomy (08/28/08) Family History Brother Heart disease Colon cancer Brother COPD (chronic obstructive pulmonary disease) Child Age: 52 Skin cancer Father CAD (coronary artery disease) Grandfather Stroke Mother Congestive heart failure Tobacco use disorder Cancer Sister Hypertension Breast cancer Daughter Breast cancer Social History marital status: unknown household members: none occupational status: previously employed Smoking Status: Former smoker alcohol intake: former Assessment & Plan Assessment & Plan narrative: The patient has had a fall downstairs with two resulting fractures, the left scapular body and the left lateral tibial plateau. Mild hyponatremia, euvolemic, repeat labs in the morning Acute hypoxemic respiratory failure most likely secondary to COPD exacerbation at the time of presentation, improved Trauma from fall causing multiple fractures including tibial and fibular fracture -orthopedics is following, no surgical intervention required Acute encephalopathy, resolved, Unclear etiology, Suspect concussion post fall No UTI during this admission. No Acute pulmonary Edema during this admission. Hx of Colon cancer s/p s/p R hemicolectomy with no evidence of recurrence The tibial plateau fracture should be treated in a hinged knee brace with 6 weeks of toe touch weight bearing followed by progressive weight bearing in the brace for an additional 6 weeks. Physical therapy evaluation recommended subacute rehab, most likely placement tomorrow. Time Spent With Patient Time with patient: 30 to 49 minutes with 50% spent counseling/coordinating care Critical Care time: I spent a total of [] minutes of critical care time on this patient's care today; this time is exclusive of procedural time. Quality VTE Deep Vein Thrombosis/Pulmonary Embolism Present on Admission: No
--- NOTE | 2021-09-10 15:39 | PT.IPTN ---
Current Diagnoses Acute respiratory failure with hypoxia (09/06/21) Physical Therapy Treatment Note M2 PT-IP Current Condition Start: 09/06/21 14:37 Freq: NEEDED Status: Active Protocol: Document 09/09/21 12:27 AMB (Rec: 09/09/21 12:59 AMB [id number]) Physical Therapy Current Condition Current Condition Evaluation Date 09/06/21 Treatment Diagnosis fall down stairs, L scapula, sternal, and rib fx (3-5); hypoxic resp fail Onset Date 09/05/21 M3 PT-IP Subjective Start: 09/06/21 14:37 Freq: NEEDED Status: Active Protocol: Document 09/10/21 15:15 KS (Rec: 09/10/21 16:32 KS [id number]) Subjective Physical Therapy Visit Type Type Treatment Note Visit Start Time 15:15 Visit Stop Time 15:39 Total Visit Minutes 24 Notes L tibial plateau fracture. Toe touch WB [address] Urbina' note. Hinged knee brace (unlocked) for all weightbearing for 3 weeks. Physical Therapy Visit Comments Patient Comments I want to go home Therapy Pain Assessment Pain When Pain Assessed During Mobility Pain Present Pain Present Pain Reported M4 PT-IP Mobility and Gait Start: 09/06/21 14:37 Freq: NEEDED Status: Active Protocol: Document 09/10/21 15:15 KS (Rec: 09/10/21 16:32 KS [id number]) PT-Bed Mobility Assessment Supine to Sit Supine to Sit Moderate Assistance,1 Person Assistance,Head of Bed Elevated,Bedrails Sit to Supine Sit to Supine Moderate Assistance,2 Person Assistance Scooting Scooting to Edge of Bed Minimal Assistance PT-Transfer Assessment Sit to and From Stand Sit to and from Stand Moderate Assistance Equipment Transfer Assistive Device Gait Belt,Front Wheeled Walker Orthotic/Prosthetic Devices or Brace: Yes Transfers Transfer Destination Bed Transfer Technique STS Transfer Ability Level of Assist Moderate Assistance,1 Person Assistance,2 Person Assistance ,Use of Upper Extremities Comments Mobility Comments Pt in bed upon arrival and agreeable to mobilizing, but hesitant to get OOB. Pt Mod A for sup<>sit and Min A for scooting EOB. BASIC ACOUSTIC ANALYST arrived for assistance. Pt able to perform sit<>stand w/ Mod A and FWW w / max cues to maintain TTWB and hand placement w/ FWW. Pt stood ~30 seconds and thn took seated rest break. Refused transfer to chair, but agreeable to additional sit<> stand for repositioning of bed . Pt able to stand additional 30 seconds w/ Mod A max cues and then required Mod A x2 for sit<>sup back in bed. Pt reported fatigue and left in bed w/ all needs in reach. Gait Assessment Comments Gait Comments Unable at this time. PT-Balance Assessment Sitting Balance and Reactions Static Sitting Balance Ability Good Dynamic Sitting Balance Ability Fair Standing Balance and Reactions Static Standing Balance Ability Fair Device Used FWW M5 PT-IP Objective Assessments Start: 09/06/21 14:37 Freq: NEEDED Status: Active Protocol: Document 09/09/21 12:27 AMB (Rec: 09/09/21 12:59 AMB [id number]) Gross Range of Motion Upper Extremity ROM Assessment Left Impaired Lower Extremity ROM Assessment Within Functional Limits Strength Upper Extremity Strength Assessment Left Impaired Comments Strength Comments Needs assist with L LE to get it into bed, toe touch weightbearing only. M6 PT-IP Treatment Start: 09/06/21 14:37 Freq: NEEDED Status: Active Protocol: Document 09/10/21 15:15 KS (Rec: 09/10/21 16:32 KS [id number]) Physical Therapy Treatment Education Education Provided Safety Equipment Issued Equipment Type and Company Sling is for comfort, patient is WBAT in L UE per Dr. Urbina note. Hinged knee brace applied, needs to wear it with weightbearing for 3 weeks, toe touch weightbearing for 6 weeks. M7 PT-IP Assessment and Plan Start: 09/06/21 14:37 Freq: NEEDED Status: Active Protocol: Document 09/10/21 15:15 KS (Rec: 09/10/21 16:32 KS [id number]) PT Summary Assessment and Plan Potential Rehabilitation Potential Good Status of Condition at Evaluation Evolving Summary Impairments Pain,ROM,Strength,Balance, Cognition,Bed Mobility, Transfers,Gait Progress Towards Goals Slow Progress - Other Assessment Summary Pt showing slight improvement for mobility and activity tolerance today, but still unable to complete transfer due to pain, weakness, and fear. Performed 2x sit<>stands w/ mod A x2 and max cues to maintain TTWB w/ FWW. At this time, pt will require SNF to improve functional mobility independence. Goals Bed Mobility Goal Standby Assistance Transfer Goal Standby Assistance Gait Goal Standby Assistance Gait Distance 200 Days to Meet Goals 8 Frequency of Treatment Frequency Of Treatment Once a Day Treatment Plan Physical Therapy Treatment Plan Bed Mobility Training,Transfer Training,Gait Training, Therapeutic Exercise,Balance Retraining,Discharge Planning, Hot or Cold Pack,Neuromuscular Re-ed Precautions Other Precautions TTWB L LE for 6 weeks, hinged knee brace during WB. protect left shoulder, but is WBAT through it for FWW and can move it actively. Recommendations To Nursing Amount of Assist Needed 2 Person Assist Discharge Recommendations PT Discharge Recommendations SNF Rehab Transportation Needs at Discharge Wheelchair/Cabulance,Stretcher /Ambulance
[2021-09-10] MEDS: SODIUM CHLORIDE 0.9% FLUSH 10 ML IV (20:19)
[2021-09-11] VITALS (8 sets, daily range): BP systolic 110–160; BP diastolic 68–77; PULSE 79–102; RESP 16–19; TEMP 36.6–37.4; O2SAT 92–98
[2021-09-11] MEDS: HYDROCODONE/ACET 5/325 TABLET 1 TAB PO ×4 (04:54→22:05)
[2021-09-11 05:11] LABS: BUN Creatinine Ratio 17.6 (6-22); Blood Urea Nitrogen 12 mg/dL (7-17); Calcium 8.7 mg/dL (8.4-10.2); Carbon Dioxide 28 mmol/L (22-32); Chloride 98 mmol/L (98-107); Estimated Glomerular Filt Rate > 60 mL/min (>60); Glucose 117 mg/dL (80-110); HEMOLYSIS < 15 (0-50); Potassium 4.2 mmol/L (3.4-5.1); Sodium 132 mmol/L (137-145)
[2021-09-11 05:16] LABS: Add Manual Diff / Slide Review NO; Basophils Absolute Auto 100 /uL (0-100); Eosinophils Absolute Auto 200 /uL (0-450); Eosinophils Percent Auto 4.3 % (2-4); Hematocrit 33.5 % (36-46); Hemoglobin 11.7 g/dL (12.0-16.0); Lymphocytes Absolute Auto 1100 /uL (1100-4500); Mean Corpuscular HGB Conc 34.8 % (30-36); Mean Corpuscular Volume 89.1 fL (80-100); Monocytes Absolute Auto 600 /uL (0-900); Monocytes Percent Auto 10.6 % (3-14); Neutrophils Absolute Auto 3600 /uL (1500-7000); Neutrophils Percent Auto 64.1 % (50-75); Platelet Count 250 X10^3/uL (150-400); Red Blood Cell Count 3.76 X10^6/uL (4.0-5.2); Red Cell Distribution Width 12.9 % (11.6-14.8); White Blood Cell Count 5.6 X10^3/uL (4.5-11.0)
[2021-09-11] MEDS: HEPARIN 5,000 UNIT/ML VIAL 5000 UNIT SUBCUT ×2 (10:02→22:00)
--- NOTE | 2021-09-11 11:03 | CM.DPC ---
DCP Cont: DCP spoke with Sangeetha @ [facility] and they are accepting the patient under their care tomorrow, Tuesday 09/12. Sangeetha states that they can accept the patient at 1200. DCP met with pt and pt daughter bedside this morning to discuss and pt and daughter agreeable to plan. Daughter is going to transport pt to [facility] tomorrow around 1115. DCP provided daughter with address to SNF and their visitation policy. DCP faxed over PASSR and COVID swab. DCP tomorrow will need to fax d/c summary, signed med list, and rx's (if any). P: Pt to discharge tomorrow @ 1115 to be taken to [facility] for rehab via daughter POV. Christine Freed RN/ALBERT
--- NOTE | 2021-09-11 11:51 | PM.PN.1 ---
Subjective Subjective Date Patient Seen: 09/10/21 Time Patient Seen: 07:58 Interval history: Patient feels much better today, decreased pain. Walked with the physical therapy. I did talk to her daughter Betsy and explained care process.. Patient tolerated diet very well. Denies any nausea, vomiting. No fevers no chills. She will be discharged to rehab tomorrow morning. Bed is not available today. Unsafe to discharge to home. Exam Vital Signs (past 8 hours): - 09/11/21 03:52 09/11/21 07:58 09/11/21 07:00 Temperature 98.8 F 98.6 F Pulse Rate 88 79 Respiratory Rate 16 16 Blood Pressure 137/77 122/69 Pulse Oximetry 96 97 Oxygen Delivery Method Room Air Oxygen Flow Rate 0 0 Fraction of Inspired Oxygen 28 Oxygen Delivery Method Room Air Oxygen Flow Rate 0 Narrative Exam Narrative: Resting comfortably in bed, no acute distress. Hinged knee brace is at bedside. Trace pedal edema noted Constitutional, HEENT, cardiovascular, respiratory, neuro, psych, skin examination done, positive findings noted above. 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) Centrilobular emphysema Colitis (~2009) Colon cancer (~04/2019) Essential hypertension (05/06/11) Family history of alcoholism Family history of colon cancer Gastritis History of colitis (~2009) History of malignant neoplasm of left breast (2008) Iron deficiency anemia (07/30/15) Malignant neoplasm of skin of nose (02/15/14) Multiple pulmonary nodules Nontoxic uninodular goiter (02/15/14) Osteopenia (01/10/14) Symptomatic anemia Tooth ache Weight loss Surgical History H/O right hemicolectomy (~04/2019) History of cataract removal with insertion of prosthetic lens (05/11/11) History of cataract removal with insertion of prosthetic lens (04/27/11) History of esophagogastroduodenoscopy (EGD) (05/18/17) History of esophagogastroduodenoscopy (EGD) (~07/2017) History of mastectomy, subtotal (~2008) Status post breast biopsy (08/06/08) Status post breast lumpectomy (08/20/08) Status post colonoscopy (~08/2009) Status post colonoscopy (03/2015) Status post partial mastectomy (08/28/08) Family History Brother Heart disease Colon cancer Brother COPD (chronic obstructive pulmonary disease) Child Age: 52 Skin cancer Father CAD (coronary artery disease) Grandfather Stroke Mother Congestive heart failure Tobacco use disorder Cancer Sister Hypertension Breast cancer Daughter Breast cancer Social History marital status: unknown household members: none occupational status: previously employed Smoking Status: Former smoker alcohol intake: former Assessment & Plan Assessment & Plan narrative: The patient has had a fall downstairs with two resulting fractures, the left scapular body and the left lateral tibial plateau. Mild hyponatremia, euvolemic, chronic, stable, no further workup recommended. Acute hypoxemic respiratory failure most likely secondary to COPD exacerbation at the time of presentation, improved Trauma from fall causing multiple fractures including tibial and fibular fracture -orthopedics is following, no surgical intervention required Acute encephalopathy, resolved, Unclear etiology, Suspect concussion post fall No UTI during this admission. No Acute pulmonary Edema during this admission. Benign essential hypertension, patient on propranolol, we will continue the home medication for the discharge Hx of Colon cancer s/p s/p R hemicolectomy with no evidence of recurrence The tibial plateau fracture should be treated in a hinged knee brace with 6 weeks of toe touch weight bearing followed by progressive weight bearing in the brace for an additional 6 weeks. Physical therapy evaluation recommended subacute rehab, most likely placement tomorrow. Time Spent With Patient Time with patient: 30 to 49 minutes with 50% spent counseling/coordinating care Critical Care time: I spent a total of [] minutes of critical care time on this patient's care today; this time is exclusive of procedural time. Quality VTE Deep Vein Thrombosis/Pulmonary Embolism Present on Admission: No
--- NOTE | 2021-09-11 11:57 | PM.DS.1 ---
History of Present Illness <Miguel Solo MD - Last Filed: 09/11/21 12:03> History of Present Illness Date Patient Seen: 09/11/21 Time Patient Seen: 05:30 Chief complaint: fall down 10 steps/ No thinners Narrative: Ms. Camarena is a 80W with PMH stage 2 colon cancer s/p right hemicolectomy, HTN who presents after a fall. It is not clear if fall was witnessed. Patient is clearly confused, and says she tripped on stairs, but does not recall any further details. Per staff patient was heard calling out and found to have fallen. She was complaining primarily of left shoulder pain. She otherwise had no complaints of shortness of breath, chest pain, fevers/chills, cough, nausea, vomiting, abdominal pain. She lives in [facility] with her dog and per family she is much more confused than normally after the fall. In the ED workup was done, no temperature was documented in ED initially. On arrival to floor she was afebrile. Otherwise vitals notable for elevated blood pressure and tachypnea. She was satting in the 80s on room air and placed on 5L oxygen. Labs notable for WBC 11.9, 91.6% PMNs, CK 732, CK-MB 26.9, trop negative. UA with leuk esterase, 5-10 WBCS, few bacteria. Left shoulder xray showed an old fracture. Left knee xray with no acute process. Chest xray with mild chronic interstitial changes. CT thorax with contrast shows no abnormalities. Xray of left elbow, CT c-spine, and CT head with no acute process. She was admitted for further treatment. <Rhett Ward DO - Last Filed: 09/12/21 11:19> History of Present Illness Date Patient Seen: 09/12/21 Time Patient Seen: 09:00 Discharge Providers <Miguel Solo MD - Last Filed: 09/11/21 12:03> Provider Date of admission: 09/06/21 02:41 Primary care physician: Emerita Jhaveri MD Consults: 09/06/21 11:38 Consult to Physical Therapy Evaluate & Treat Comment: Physician Instructions: Evaluate and Treat 09/06/21 13:46 Consult to Home Health Routine Comment: Reason For Exam: Evaluate and Treat- RN, PT, Daphnie Villaseñor 09/08/21 17:27 Consult to Orthopedic Surgery Routine Comment: Consulting Provider: Wagner Urbina Reason for consultation: Tibia and Fibula Fracture Has provider been notified: Yes Discharge provider: Miguel Solo MD <Rhett Ward DO - Last Filed: 09/12/21 11:19> Provider Discharge Date: 09/12/21 Discharge provider: Rhett Ward DO Summary <Miguel Solo MD - Last Filed: 09/11/21 12:03> Hospital Course Discharge Diagnosis: Status post fall, mechanical Acute Left scapular body and the left lateral tibial plateau fracture Mild hyponatremia, euvolemic, chronic, stable Acute hypoxemic respiratory failure most likely secondary to COPD exacerbation at the time of presentation, improved Trauma from fall causing multiple fractures including tibial and fibular fracture Acute encephalopathy at time of admission, resolved Benign essential hypertension, patient on propranolol, we will continue the home medication for the discharge Hx of Colon cancer s/p s/p R hemicolectomy with no evidence of recurrence Acute physical deconditioning secondary to fall and fractures, required rehab Hospital Course: Patient admitted status post fall with fractures multiple as mentioned as per the history and physical and progress notes also noted to have acute hypoxic respiratory failure secondary to COPD exacerbation, acute encephalopathy most likely related to fall, pain. Patient evaluated by orthopedic surgeon during this hospitalization, deemed to be a nonsurgical candidate at this time. Treat with a brace and conservative therapy at this time. If the patient continues to have trouble ambulating consider knee surgery after 4-6 weeks of rehab and conservative management. Patient blood pressure seems to be appropriately controlled during this hospitalization, we will resume propranolol at the time of discharge. It is unclear why the patient is on a beta-ana with a history of COPD but she tolerated the medication very well as per her records. I recommended to discuss with the primary care physician regarding the choice of blood pressure medication. Status at Discharge Functional status at discharge: uses cane/walker Overall status at discharge: patient is progressing back to baseline Exam <Miguel Solo MD - Last Filed: 09/11/21 12:03> Vital Signs (past 8 hours): - 09/11/21 07:58 09/11/21 07:00 Temperature 98.6 F Pulse Rate 79 Respiratory Rate 16 Blood Pressure 122/69 Pulse Oximetry 97 Oxygen Delivery Method Room Air Oxygen Flow Rate 0 Fraction of Inspired Oxygen 28 Oxygen Delivery Method Room Air Oxygen Flow Rate 0 <Rhett Keanu Ward DO - Last Filed: 09/12/21 11:19> Narrative Exam Narrative: Gen: Alert, oriented, chronically ill appearing 80 y.o. female, appears comfortable HEENT: normocephalic, atraumatic, conjunctiva clear, sclera non-icteric, oral mucosa pink and moist Neck: supple, full ROM, no JVD, trachea is midline Resp: Lungs CTA, non-labored breathing CV: RRR, no murmur or rubs Abd: soft, non-tender, normoactive BTs Skin: no lesions or rashes, dry and intact Neuro: Alert and oriented X 4 w/no focal deficits. Speech clear and coherent. Extremities: moves all 4 extremities, brace on left knee. Left arm in sling. Psyche: normal mood and affect. Objective <Miguel Solo MD - Last Filed: 09/11/21 12:03> Labs Result Diagrams: 09/11/21 04:40 09/11/21 04:40 Labs: Laboratory Results - last 24 hr 09/11/21 09/11/21 04:40 04:40 WBC 5.6 RBC 3.76 L Hgb 11.7 L Hct 33.5 L MCV 89.1 MCH 31.0 MCHC 34.8 RDW 12.9 Plt Count 250 Neut % (Auto) 64.1 Lymph % (Auto) 20.0 L [place] % (Auto) 10.6 Eos % (Auto) 4.3 H Baso % (Auto) 1.0 Neut # (Auto) 3600 Lymph # (Auto) 1100 [place] # (Auto) 600 Eos # (Auto) 200 Baso # (Auto) 100 Sodium 132 L Potassium 4.2 Chloride 98 Carbon Dioxide 28 BUN 12 Creatinine 0.68 Estimated GFR > 60 BUN/Creatinine Ratio 17.6 Glucose 117 H Calcium 8.7 PFSH <Miguel Solo MD - Last Filed: 09/11/21 12:03> Medical History Anxiety (05/06/11) 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) Centrilobular emphysema Colitis (~2009) Colon cancer (~04/2019) Essential hypertension (05/06/11) Family history of alcoholism Family history of colon cancer Gastritis History of colitis (~2009) History of malignant neoplasm of left breast (2008) Iron deficiency anemia (07/30/15) Malignant neoplasm of skin of nose (02/15/14) Multiple pulmonary nodules Nontoxic uninodular goiter (02/15/14) Osteopenia (01/10/14) Symptomatic anemia Tooth ache Weight loss Surgical History H/O right hemicolectomy (~04/2019) History of cataract removal with insertion of prosthetic lens (05/11/11) History of cataract removal with insertion of prosthetic lens (04/27/11) History of esophagogastroduodenoscopy (EGD) (07/08/16) History of esophagogastroduodenoscopy (EGD) (~07/2017) History of mastectomy, subtotal (~2008) Status post breast biopsy (08/06/08) Status post breast lumpectomy (08/20/08) Status post colonoscopy (~08/2009) Status post colonoscopy (03/2015) Status post partial mastectomy (08/28/08) Family History Brother Heart disease Colon cancer Brother COPD (chronic obstructive pulmonary disease) Child Age: 52 Skin cancer Father CAD (coronary artery disease) Grandfather Stroke Mother Congestive heart failure Tobacco use disorder Cancer Sister Hypertension Breast cancer Daughter Breast cancer Social History marital status: unknown household members: none occupational status: previously employed Smoking Status: Former smoker alcohol intake: former Discharge Assessment & Plan <Miguel Solo MD - Last Filed: 09/11/21 12:03> Assessment and Plan Assessment: The patient has had a fall downstairs with two resulting fractures, the left scapular body and the left lateral tibial plateau. Mild hyponatremia, euvolemic, chronic, stable, no further workup recommended. Acute hypoxemic respiratory failure most likely secondary to COPD exacerbation at the time of presentation, improved Trauma from fall causing multiple fractures including tibial and fibular fracture -orthopedics is following, no surgical intervention required Acute encephalopathy, resolved, Unclear etiology, Suspect concussion post fall No UTI during this admission. No Acute pulmonary Edema during this admission. Benign essential hypertension, patient on propranolol, we will continue the home medication for the discharge Hx of Colon cancer s/p s/p R hemicolectomy with no evidence of recurrence The tibial plateau fracture should be treated in a hinged knee brace with 6 weeks of toe touch weight bearing followed by progressive weight bearing in the brace for an additional 6 weeks. Physical therapy evaluation recommended subacute rehab, most likely placement tomorrow. Discharge Plan Discharge Plan Patient Disposition: Swing Bed/[facility] Transfer to: [facility] Provider Discharge Comment: And fell down the stairs sustaining rib fractures, scapular fracture and left tibial plateau fracture. Was receiving pain medications but unfortunately has mast until the day of discharge that she had not had a bowel movement 6 days. She will need bowel regimen at the SNF to help move her bowels. Discharge orders & Medications Discharge Orders: Discharge (Order); Ordered 09/12/21 Ordered By: Miguel Solo Prescriptions: New hydrocodone-acetaminophen 5-325 mg tablet 1 tab PO Q4H PRN (Reason: pain) Qty: 30 0RF Continued MULTIVITAMIN (#MULTIPLE VITAMINS) 1 cap PO Q DAY Qty: 0 propranolol 60 mg tablet 60 mg PO BID Qty: 180 3RF (DME) Flexichamber Spacer See Rx Instructions .ROUTE .MEDSUPPLY Qty: 1 0RF Rx Instructions: As directed clonazepam 0.5 mg tablet 0.5 mg PO BEDTIME PRN (Reason: anxiety, insomnia) 30 Days Qty: 30 5RF albuterol sulfate 90 mcg/actuation HFA aerosol inhaler 1 puff inhalation Q3-4H PRN (Reason: shortness of breath or wheezing) Qty: 6.7 0RF Probiotic 10 billion cell Capsule 1 cell DAILY citalopram 40 mg tablet 40 mg PO DAILY omeprazole 40 mg capsule,delayed release(DR/EC) 40 mg PO DAILY Rx Instructions: TAKE ONE CAPSULE BY MOUTH ONE TIME DAILY Follow up/Referrals: Emerita Jhaveri MD [Primary Care Provider] - Wagner Urbina MD [Physician] - 2 Weeks Diet/Activity/Treatments Diet: Regular Activity: PT-Bed Mobility Assessment Supine to Sit Supine to Sit Minimal Assistance,1 Person Assistance,Head of Bed Elevated,Bedrails Sit to Supine Sit to Supine Minimal Assistance,1 Person Assistance Scooting Scooting to Edge of Bed Minimal Assistance PT-Transfer Assessment Sit to and From Stand Sit to and from Stand Minimal Assistance,Maximum Assistance Equipment Transfer Assistive Device Gait Belt,Front Wheeled Walker Orthotic/Prosthetic Devices or Brace: Yes Transfers Transfer Destination Bed Transfer Technique Stand Step Pivot Transfer Ability Level of Assist Moderate Assistance,1 Person Assistance,Use of Upper Extremities Comments Mobility Comments Pt performed bed mobility with Danielle. Sit to stand Danielle from bed. Transfer to the left to chair Danielle with heavy cues for safety to maintain WB precautions. Needed MaxA for sit to stand from lower chair and to transfer to the right back to a higher bed. M5 PT-IP Objective Assessments Start: 09/06/21 14:37 Freq: NEEDED Status: Active Protocol: Document 09/09/21 12:27 AMB (Rec: 09/09/21 12:59 AMB [id number]) Gross Range of Motion Upper Extremity ROM Assessment Left Impaired Lower Extremity ROM Assessment Within Functional Limits Strength Upper Extremity Strength Assessment Left Impaired Comments Strength Comments Needs assist with L LE to get it into bed, toe touch weightbearing only. M6 PT-IP Treatment Start: 09/06/21 14:37 Freq: NEEDED Status: Active Protocol: Document 09/11/21 12:44 AMB (Rec: 09/11/21 12:56 AMB [id number]) Physical Therapy Treatment Equipment Issued Equipment Type and Company Sling is for comfort, patient is WBAT in L UE per Dr. Urbina note. Hinged knee brace applied, needs to wear it with weightbearing for 3 weeks, toe touch weightbearing for 6 weeks. M7 PT-IP Assessment and Plan Start: 09/06/21 14:37 Freq: NEEDED Status: Active Protocol: Document 09/11/21 12:44 AMB (Rec: 09/11/21 12:56 AMB [id number]) PT Summary Assessment and Plan Potential Rehabilitation Potential Good Status of Condition at Evaluation Evolving Summary Impairments Pain,ROM,Strength,Balance, Cognition,Bed Mobility, Transfers,Gait Progress Towards Goals Slow Progress - Other Assessment Summary Less confused today. Pt tolerated transfer training, needing cues and ModA. Educated daughter in correct application of hinged knee brace. Goals Bed Mobility Goal Standby Assistance Transfer Goal Standby Assistance Gait Goal Standby Assistance Gait Distance 200 Days to Meet Goals 8 Frequency of Treatment Frequency Of Treatment Once a Day Treatment Plan Physical Therapy Treatment Plan Bed Mobility Training,Transfer Training,Gait Training, Therapeutic Exercise,Balance Retraining,Discharge Planning, Hot or Cold Pack,Neuromuscular Re-ed Precautions Other Precautions TTWB L LE for 6 weeks, hinged knee brace during WB. protect left shoulder, but is WBAT through it for FWW and can move it actively. Recommendations To Nursing Amount of Assist Needed 2 Person Assist Discharge Recommendations PT Discharge Recommendations SNF Rehab Transportation Needs at Discharge Wheelchair/Cabulance,Stretcher /Ambulance [facility] Rehab type: Physical therapy Restrictions to mobility: -use the arm as tolerated, including to weight bear on the left arm for the use of a walker. -knee fracture: use hinged knee brace with 6 weeks of toe touch weight bearing. Then advance to progressive weight bearing Discharge Data Primary Care Provider: Emerita Jhaveri Quality <Miguel Solo MD - Last Filed: 09/11/21 12:03> VTE Deep Vein Thrombosis/Pulmonary Embolism Present on Admission: No
[2021-09-11] MEDS: PANTOPRAZOLE DR 40 MG TABLET PO (12:02)
--- NOTE | 2021-09-11 12:59 | PT.IPTN ---
Current Diagnoses Acute respiratory failure with hypoxia (09/06/21) Physical Therapy Treatment Note M2 PT-IP Current Condition Start: 09/06/21 14:37 Freq: NEEDED Status: Active Protocol: Document 09/09/21 12:27 AMB (Rec: 09/09/21 12:59 AMB [id number]) Physical Therapy Current Condition Current Condition Evaluation Date 09/06/21 Treatment Diagnosis fall down stairs, L scapula, sternal, and rib fx (3-5); hypoxic resp fail Onset Date 09/05/21 M3 PT-IP Subjective Start: 09/06/21 14:37 Freq: NEEDED Status: Active Protocol: Document 09/11/21 12:44 AMB (Rec: 09/11/21 12:56 AMB [id number]) Subjective Physical Therapy Visit Type Type Treatment Note Visit Start Time 11:30 Visit Stop Time 12:00 Total Visit Minutes 30 Notes L tibial plateau fracture. Toe touch WB [address] Urbina' note. Hinged knee brace (unlocked) for all weightbearing for 3 weeks. Physical Therapy Visit Comments Patient Comments Going to [facility] Therapy Pain Assessment Pain When Pain Assessed During Mobility Pain Present Pain Present Pain Reported M4 PT-IP Mobility and Gait Start: 09/06/21 14:37 Freq: NEEDED Status: Active Protocol: Document 09/11/21 12:44 AMB (Rec: 09/11/21 12:56 AMB [id number]) PT-Bed Mobility Assessment Supine to Sit Supine to Sit Minimal Assistance,1 Person Assistance,Head of Bed Elevated,Bedrails Sit to Supine Sit to Supine Minimal Assistance,1 Person Assistance Scooting Scooting to Edge of Bed Minimal Assistance PT-Transfer Assessment Sit to and From Stand Sit to and from Stand Minimal Assistance,Maximum Assistance Equipment Transfer Assistive Device Gait Belt,Front Wheeled Walker Orthotic/Prosthetic Devices or Brace: Yes Transfers Transfer Destination Bed Transfer Technique Stand Step Pivot Transfer Ability Level of Assist Moderate Assistance,1 Person Assistance,Use of Upper Extremities Comments Mobility Comments Pt performed bed mobility with Danielle. Sit to stand Danielle from bed. Transfer to the left to chair Danielle with heavy cues for safety to maintain WB precautions. Needed MaxA for sit to stand from lower chair and to transfer to the right back to a higher bed. M5 PT-IP Objective Assessments Start: 09/06/21 14:37 Freq: NEEDED Status: Active Protocol: Document 09/09/21 12:27 AMB (Rec: 09/09/21 12:59 AMB [id number]) Gross Range of Motion Upper Extremity ROM Assessment Left Impaired Lower Extremity ROM Assessment Within Functional Limits Strength Upper Extremity Strength Assessment Left Impaired Comments Strength Comments Needs assist with L LE to get it into bed, toe touch weightbearing only. M6 PT-IP Treatment Start: 09/06/21 14:37 Freq: NEEDED Status: Active Protocol: Document 09/11/21 12:44 AMB (Rec: 09/11/21 12:56 AMB [id number]) Physical Therapy Treatment Equipment Issued Equipment Type and Company Sling is for comfort, patient is WBAT in L UE per Dr. Urbina note. Hinged knee brace applied, needs to wear it with weightbearing for 3 weeks, toe touch weightbearing for 6 weeks. M7 PT-IP Assessment and Plan Start: 09/06/21 14:37 Freq: NEEDED Status: Active Protocol: Document 09/11/21 12:44 AMB (Rec: 09/11/21 12:56 AMB [id number]) PT Summary Assessment and Plan Potential Rehabilitation Potential Good Status of Condition at Evaluation Evolving Summary Impairments Pain,ROM,Strength,Balance, Cognition,Bed Mobility, Transfers,Gait Progress Towards Goals Slow Progress - Other Assessment Summary Less confused today. Pt tolerated transfer training, needing cues and ModA. Educated daughter in correct application of hinged knee brace. Goals Bed Mobility Goal Standby Assistance Transfer Goal Standby Assistance Gait Goal Standby Assistance Gait Distance 200 Days to Meet Goals 8 Frequency of Treatment Frequency Of Treatment Once a Day Treatment Plan Physical Therapy Treatment Plan Bed Mobility Training,Transfer Training,Gait Training, Therapeutic Exercise,Balance Retraining,Discharge Planning, Hot or Cold Pack,Neuromuscular Re-ed Precautions Other Precautions TTWB L LE for 6 weeks, hinged knee brace during WB. protect left shoulder, but is WBAT through it for FWW and can move it actively. Recommendations To Nursing Amount of Assist Needed 2 Person Assist Discharge Recommendations PT Discharge Recommendations SNF Rehab Transportation Needs at Discharge Wheelchair/Cabulance,Stretcher /Ambulance
[2021-09-11 15:40] LABS: COVID19 -Nasal RAPID Negative (Negative)
[2021-09-12] VITALS: BP 116/62; PULSE 90; RESP 18; TEMP 36.9; O2SAT 95
[2021-09-12 04:00] VITALS: BP 120/62; PULSE 94; RESP 18; TEMP 37.5; O2SAT 94
[2021-09-12] MEDS: HYDROCODONE/ACET 5/325 TABLET 1 TAB PO (08:00)
[2021-09-12] MEDS: HEPARIN 5,000 UNIT/ML VIAL 5000 UNIT SUBCUT (08:08)
[2021-09-12] MEDS: PANTOPRAZOLE DR 40 MG TABLET PO (08:09)
[2021-09-12 08:19] VITALS: O2SAT 95
[2021-09-12 08:20] VITALS: BP 106/68; PULSE 92; RESP 16; TEMP 36.9; O2SAT 95
--- NOTE | 2021-09-12 11:15 | PT.IPTN ---
Current Diagnoses Acute respiratory failure with hypoxia (09/06/21) Physical Therapy Treatment Note M2 PT-IP Current Condition Start: 09/06/21 14:37 Freq: NEEDED Status: Active Protocol: Document 09/09/21 12:27 AMB (Rec: 09/09/21 12:59 AMB [id number]) Physical Therapy Current Condition Current Condition Evaluation Date 09/06/21 Treatment Diagnosis fall down stairs, L scapula, sternal, and rib fx (3-5); hypoxic resp fail Onset Date 09/05/21 M3 PT-IP Subjective Start: 09/06/21 14:37 Freq: NEEDED Status: Active Protocol: Document 09/12/21 11:00 KS (Rec: 09/12/21 12:27 KS [id number]) Subjective Physical Therapy Visit Type Type Treatment Note Visit Start Time 11:00 Visit Stop Time 11:15 Total Visit Minutes 15 Notes L tibial plateau fracture. Toe touch WB [address] Urbina' note. Hinged knee brace (unlocked) for all weightbearing for 3 weeks. Physical Therapy Visit Comments Patient Comments Going to [facility] tomorrow M4 PT-IP Mobility and Gait Start: 09/06/21 14:37 Freq: NEEDED Status: Active Protocol: Document 09/12/21 11:00 KS (Rec: 09/12/21 12:27 KS [id number]) PT-Bed Mobility Assessment Supine to Sit Supine to Sit Minimal Assistance,1 Person Assistance,Head of Bed Elevated,Bedrails Scooting Scooting to Edge of Bed Contact Guard Assistance PT-Transfer Assessment Sit to and From Stand Sit to and from Stand Moderate Assistance,1 Person Assistance,Use of Upper Extremities Equipment Transfer Assistive Device Gait Belt,Front Wheeled Walker Orthotic/Prosthetic Devices or Brace: Yes Transfers Transfer Destination Bedside Commode Transfer Technique Stand Pivot Transfer Ability Level of Assist Moderate Assistance,1 Person Assistance,Use of Upper Extremities Comments Mobility Comments Pt in bed upon arrival and wanting to use bedside commode . Pt Min A for sup<>sit and CGA for scooting EOB. Pt sit<> stand Mod A w/ FWW w/ max cues for hand placement and Mod A for stand pivot to BSC. Pt left on BSC w/ all needs in reach. Gait Assessment Comments Gait Comments Unable at this time. PT-Balance Assessment Sitting Balance and Reactions Static Sitting Balance Ability Good Dynamic Sitting Balance Ability Fair Standing Balance and Reactions Static Standing Balance Ability Fair Dynamic Standing Balance Ability Poor Device Used FWW M5 PT-IP Objective Assessments Start: 09/06/21 14:37 Freq: NEEDED Status: Active Protocol: Document 09/09/21 12:27 AMB (Rec: 09/09/21 12:59 AMB [id number]) Gross Range of Motion Upper Extremity ROM Assessment Left Impaired Lower Extremity ROM Assessment Within Functional Limits Strength Upper Extremity Strength Assessment Left Impaired Comments Strength Comments Needs assist with L LE to get it into bed, toe touch weightbearing only. M6 PT-IP Treatment Start: 09/06/21 14:37 Freq: NEEDED Status: Active Protocol: Document 09/12/21 11:00 KS (Rec: 09/12/21 12:27 KS [id number]) Physical Therapy Treatment Education Education Provided Safety Equipment Issued Equipment Type and Company Sling is for comfort, patient is WBAT in L UE per Dr. Urbina note. Hinged knee brace applied, needs to wear it with weightbearing for 3 weeks, toe touch weightbearing for 6 weeks. M7 PT-IP Assessment and Plan Start: 09/06/21 14:37 Freq: NEEDED Status: Active Protocol: Document 09/12/21 11:00 KS (Rec: 09/12/21 12:27 KS [id number]) PT Summary Assessment and Plan Potential Rehabilitation Potential Good Status of Condition at Evaluation Evolving Summary Impairments Pain,ROM,Strength,Balance, Cognition,Bed Mobility, Transfers,Gait Progress Towards Goals Slow Progress - Other Assessment Summary Pt limited by weakness and low activity tolerance but able to complete bed mobility CGA to Min A and sit<>stand and stand pivot Mod A to BSC. Pt will require SNF to improve strength and functional mobility. Goals Bed Mobility Goal Standby Assistance Transfer Goal Standby Assistance Gait Goal Standby Assistance Gait Distance 200 Days to Meet Goals 8 Frequency of Treatment Frequency Of Treatment Once a Day Treatment Plan Physical Therapy Treatment Plan Bed Mobility Training,Transfer Training,Gait Training, Therapeutic Exercise,Balance Retraining,Discharge Planning, Hot or Cold Pack,Neuromuscular Re-ed Precautions Other Precautions TTWB L LE for 6 weeks, hinged knee brace during WB. protect left shoulder, but is WBAT through it for FWW and can move it actively. Recommendations To Nursing Amount of Assist Needed 2 Person Assist Discharge Recommendations PT Discharge Recommendations SNF Rehab Transportation Needs at Discharge Wheelchair/Cabulance,Stretcher /Ambulance
--- NOTE | 2021-09-12 11:52 | PC.NURSE ---
Pt discharged to [facility] at this time, daughter here and driving pt. Pt A&Ox4, up to w/c with assist of one and GB. Pt has not had a BM, none recorded for 6 days, pt denies feeling constipated, MD and receiving facility aware. Pt left with sling on left arm and brace on Left knee with all belongings and discharge paperwork for receiving facility.
--- NOTE | 2021-09-12 14:49 | CM.DPNOTE ---
DCP Note: Faxed over the rest of the Referral, corrected PASSR and sent. Patient's daughter in room, explained dc to both patient and daughter. Daughter will transport to [facility] around 11:30 am. Erma Terry RN/DCP
== END 2021-09-12 12:57 | disposition swing bed (61) | DRG 189 ==
LOC: ED 09-06 01:16 → AC 09-06 06:48
PROVIDERS: Nurse Practitioner Family; Student in an Organized Health Care Education/Training Program; Admitting Provider Internal Medicine; Emergency Provider Emergency Medicine; PCP Family Medicine; Visit Provider Family Medicine
DX: J96.01 Acute respiratory failure with hypoxia (principal); S82.142A Displaced bicondylar fracture of left tibia, initial encounter for closed fracture; S22.42XA Multiple fractures of ribs, left side, initial encounter for closed fracture; J44.1 Chronic obstructive pulmonary disease with (acute) exacerbation; G93.49 Other encephalopathy; E87.1 Hypo-osmolality and hyponatremia; Y92.008 Other place in unspecified non-institutional (private) residence as the place of occurrence of the external cause; S42.115A Nondisplaced fracture of body of scapula, left shoulder, initial encounter for closed fracture; I10 Essential (primary) hypertension; F41.9 Anxiety disorder, unspecified; M25.522 Pain in left elbow; Z20.822 Contact with and (suspected) exposure to COVID-19; W10.8XXA Fall (on) (from) other stairs and steps, initial encounter
CPT/HCPCS: 36415; 36600; 70450; 71045; 71260; 71275; 72125; 73030; 73070; 73562; 73721; 74177; 80048; 80053; 81001; 82550; 82553; 82805; 84145; 84484; 85025; 87086; 87635; 93005; 93010; 93306; 94760; 96374; 96375; 97162; 97164; 97530; 99285; C9803; J0696; J1170; J1644; J1940; J2405; Q9967

== ENCOUNTER → 2021-10-23 09:15 | Outpatient (CLI) | payer OTHER, SELFPAY ==
[2021-09-06 04:29] VITALS: BMI 28.1
== END ==
PROVIDERS: PCP Pediatrics; Visit Provider Pediatrics
DX: R30.0 Dysuria (principal)
CPT/HCPCS: 87086

== ENCOUNTER 2022-04-20 13:00 | Day surgery (SDC) | payer OTHER, SELFPAY ==
[2021-09-06 04:29] VITALS: BMI 28.1
[2022-04-14 15:17] VITALS: BMI 29.5
[2022-04-20] MEDS: LACTATED RINGERS 1,000 ML 42 ML IV ×2 (13:45→16:16)
[2022-04-20 13:51] VITALS: BP 152/82; PULSE 70; RESP 16; TEMP 36.8; O2SAT 96; BMI 28.2
--- NOTE | 2022-04-20 14:56 | PM.HP.1 ---
History of Present Illness History of Present Illness Date Patient Seen: 04/20/22 Time Patient Seen: 14:56 Chief complaint: SDC Narrative: Nidhi is here for her incisional hernia repair with mesh. She has had no changes since her last visit with me in February. See the office note from February for details. 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) Centrilobular emphysema Colitis (~2009) Colon cancer (~04/2019) Essential hypertension (05/06/11) Family history of alcoholism Family history of colon cancer Gastritis History of colitis (~2009) History of malignant neoplasm of left breast (2008) Iron deficiency anemia (07/30/15) Malignant neoplasm of skin of nose (02/15/14) Multiple pulmonary nodules Nontoxic uninodular goiter (02/15/14) Osteopenia (01/10/14) Symptomatic anemia Tooth ache UTI (urinary tract infection) Weight loss Surgical History H/O right hemicolectomy (~04/2019) History of cataract removal with insertion of prosthetic lens (05/11/11) History of cataract removal with insertion of prosthetic lens (04/27/11) History of esophagogastroduodenoscopy (EGD) (07/08/16) History of esophagogastroduodenoscopy (EGD) (~07/2017) History of mastectomy, subtotal (~2008) Status post breast biopsy (08/06/08) Status post breast lumpectomy (08/20/08) Status post colonoscopy (~08/2009) Status post colonoscopy (03/2015) Status post partial mastectomy (08/28/08) Family & Social History Family History Brother Heart disease Colon cancer Brother COPD (chronic obstructive pulmonary disease) Child Age: 53 Skin cancer Father CAD (coronary artery disease) Grandfather Stroke Mother Congestive heart failure Tobacco use disorder Cancer Sister Hypertension Breast cancer Daughter Breast cancer Social History: household members none Tobacco & Substance use: Tobacco type cigarettes Smoking Status Former smoker alcohol intake former Substance Use Type does not use Meds Home Medications and Allergies Home Medications Medication Instructions Recorded Confirmed Type Lactobacillus acidophilus 10 1 cell DAILY 10/18/19 04/20/22 History billion cell capsule (Probiotic) clotrimazole 1 % topical cream 1 applic topical BID anti-yeast 10/23/21 04/20/22 Rx cream 2 weeks #30 grams omeprazole 40 mg capsule,delayed 40 mg PO DAILY #90 caps 10/23/21 04/20/22 Rx release propranolol 60 mg tablet 60 mg PO BID #180 tabs 11/30/21 04/20/22 Rx Disabled Parking Permit #1 ea 03/09/22 03/15/22 Rx albuterol sulfate 90 mcg/actuation 1 puff inhalation Q3-4H PRN 03/09/22 04/20/22 Rx aerosol inhaler shortness of breath or wheezing #6.7 grams diphenhydramine HCl 25 mg tablet 25 mg PO BEDTIME PRN Insomnia 03/09/22 04/20/22 History (Benadryl Allergy) citalopram 40 mg tablet 40 mg PO DAILY #90 tabs 04/07/22 04/20/22 Rx Allergies Allergy/AdvReac Type Severity Reaction Status Date / Time No Known Drug Allergies Allergy Verified 04/20/22 13:45 Exam Vital Signs (past 8 hours): - 04/20/22 13:51 Temperature 98.3 F Pulse Rate 70 Respiratory Rate 16 Blood Pressure 152/82 H Pulse Oximetry 96 Oxygen Delivery Method Room Air Oxygen Delivery Method Room Air Narrative Exam Narrative: There is a reducible incisional hernia near the umbilicus, diameters about 2 cm Const General: No acute distress Assessment & Plan Assessment and plan (1) Incisional hernia: Qualifiers: Obstruction and gangrene presence: without obstruction or gangrene Qualified Code(s): K43.2 - Incisional hernia without obstruction or gangrene Status: Acute Plan We will proceed with incisional hernia repair with mesh. Time Spent With Patient Critical Care time: I spent a total of [] minutes of critical care time on this patient's care today; this time is exclusive of procedural time.
[2022-04-20] MEDS: CEFAZOLIN 2 GM/100 ML PREMIX 100 ML IV (15:25)
--- NOTE | 2022-04-20 15:45 | SUR.OPER ---
Supine on padded OR bed, head on pillow, arms secured on padded arm boards at <90 degrees abduction, legs uncrossed, safety belt at thigh
[2022-04-20] MEDS: BUPIVACAINE 0.25% (PF) VIAL 30 ML INJ (15:54)
--- NOTE | 2022-04-20 16:42 | P.OP_ITS ---
Operative Date/Time/Diagnoses Date of procedure: 04/20/22 Time of procedure: 16:43 Pre-op diagnosis: Incisional hernia Post-op diagnosis: same Procedure & Clinicians Procedure: Open incisional hernia repair with mesh Same procedure as scheduled: Yes Surgeon: Nazario Bush Anesthesia Type: General Operative Notes Procedure in detail: Ancef was administered. The patient was brought to the operating room, placed on the table in the supine position and general endotracheal anesthesia was induced. The abdomen was prepped and draped in the usual fashion. A time-out was performed. A 6 cm incision was made just superior and to the right of the umbilicus where the fascial defect was palpable. Dissection was carried down to the hernia sac which was opened and healthy-appearing small bowel was seen in the abdomen. The hernia sac was closed with a running 3-0 Vicryl suture. The hernia sac was then dissected free from the fascial ring. Old Prolene suture was cut and removed. The fascial defect appeared to be coming from the inferior edge of the old extraction incision adjacent to the old Prolene. There were a few very small fascial defects adjacent to the primary defect. The fascia was closed transversely with multiple interrupted 0 Ethibond sutures and the smaller defects were closed with single interrupted 0 Ethibond sutures. The subcutaneous adipose tissue was cleared off of the anterior sheath circumferentially about 2 cm in each direction. A piece of polypropylene mesh was trimmed to fit over the fascial closure and secured with Tisseel. Once the Tisseel was dried the subcutaneous adipose tissue was closed with interrupted 3- 0 Vicryl sutures. The skin was closed with multiple interrupted 3-0 Vicryl dermal sutures followed by a running 4 Monocryl subcuticular closure. Steri-Strips were applied and an abdominal binder was applied. EBL: 10 mL Specimen: None Post-operative Condition: stable Disposition: PACU
[2022-04-20 16:50] VITALS: BP 83/56; PULSE 74; RESP 17; TEMP 36.6; O2SAT 95
[2022-04-20 17:03] VITALS: BP 165/74; PULSE 67; RESP 16; O2SAT 92
[2022-04-20] MEDS: OXYCODONE/ACETAMINOPHEN 5/325 TABLET 1 TAB PO (17:07)
[2022-04-20] MEDS: ONDANSETRON 4 MG/2 ML INJ IV (17:07)
[2022-04-20 17:11] VITALS: BP 170/80; PULSE 67; RESP 12; O2SAT 93
[2022-04-20 17:30] VITALS: BP 165/80; PULSE 70; RESP 14; TEMP 36.3; O2SAT 97
== END 2022-04-20 17:45 | disposition home or self-care (01) ==
PROVIDERS: PCP Family Medicine; Referring Provider Surgery; Visit Provider Surgery
PROC: (CPT 49593; principal; 2022-04-20 14:15)
DX: K43.2 Incisional hernia without obstruction or gangrene (principal)
CPT/HCPCS: 49593; C1781; J0690; J1100; J2405; J2704; J3010; J3490

== ENCOUNTER → 2022-05-05 13:09 | Outpatient (CLI) | payer OTHER, SELFPAY ==
[2021-09-06 04:29] VITALS: BMI 28.1
[2022-05-05 13:46] LABS: Appearance Urine UA CLEAR; Bilirubin Urine UA NEGATIVE (NEGATIVE); Color Urine UA YELLOW; Glucose Urine UA NEGATIVE (Negative); Ketones Urine UA NEGATIVE (NEGATIVE); Leukocyte Esterase Urine UA 2+ (NEGATIVE); Nitrite Urine UA NEGATIVE (Negative); Occult Blood Urine UA NEGATIVE (Negative); Protein Urine UA NEGATIVE (Negative); Specific Gravity Urine UA <=1.005 (1.000-1.035); Urobilinogen Urine UA 0.2 E.U./dL (0.2)
[2022-05-05 13:48] LABS: pH Urine UA 5.5 (4.5-8.0)
[2022-05-05 13:52] LABS: Bacteria Urine None Seen; RBC Urine None Seen (0-5/HPF); Squamous Epithelial Cell Urine 1-5 /HPF (0-5/HPF); WBC Urine 10-30/HPF (0-5/HPF)
[2022-05-05 13:53] LABS: Culture Indicated Urine Specimen Cultured
== END ==
PROVIDERS: PCP Family Medicine; Referring Provider Surgery; Visit Provider Surgery
DX: Z09 Encounter for follow-up examination after completed treatment for conditions other than malignant neoplasm (principal); N39.0 Urinary tract infection, site not specified; R30.9 Painful micturition, unspecified
CPT/HCPCS: 81001; 87077; 87086; 87186; 99212

== ENCOUNTER → 2022-05-13 11:51 | Outpatient (CLI) | payer OTHER, SELFPAY ==
[2021-09-06 04:29] VITALS: BMI 28.1
== END ==
PROVIDERS: PCP Family Medicine; Visit Provider Surgery
DX: T88.8XXA Other specified complications of surgical and medical care, not elsewhere classified, initial encounter (principal); R18.8 Other ascites; Z68.27 Body mass index [BMI] 27.0-27.9, adult
CPT/HCPCS: 87070; 87075; 87077; 87147; 87186; 87205; 99212

== ENCOUNTER → 2022-08-27 09:56 | Outpatient (CLI) | payer OTHER, MEDICAID, SELFPAY ==
[2021-09-06 04:29] VITALS: BMI 28.1
--- NOTE | 2022-08-27 09:59 | DI.CT.S_ITS ---
PROCEDURE: CT CHEST ABD PEL W CON INDICATIONS: colon cancer TECHNIQUE: After the administration of oral and intravenous contrast, axial sections acquired from the supraclavicular neck to the pubic symphysis. Coronal and sagittal reformats were performed. For radiation dose reduction, the following was used: automated exposure control, adjustment of mA and/or kV according to patient size. COMPARISON: [facility], CT, CT CHEST ABD PEL W CON, 09/05/2021, 23:35. FINDINGS: Image quality: Excellent. CHEST: Lower Neck: No enlarged lymph nodes. Thyroid: Subcentimeter hypodense nodule redemonstrated in the right thyroid lobe unchanged from the study dated September 05, 2021. Axillae: No enlarged lymph nodes. Chest Wall: Unremarkable. Lungs and Airways: No consolidation or suspicious nodules. Pleura: No pneumothorax or pleural effusions. Heart: Heart size is normal. No pericardial effusion. Thoracic Vessels: The aorta and pulmonary arteries demonstrate normal size. Mediastinum and Cathi: No enlarged lymph nodes. Esophagus: No wall thickening. No hiatal hernia. ABDOMEN: Liver: Unremarkable. Gallbladder: Unremarkable. Biliary ducts: Unremarkable. Pancreas: Unremarkable. Spleen: Unremarkable. Adrenal Glands: No right adrenal gland nodules. Low-density left adrenal gland nodule is unchanged suggesting adrenal adenoma. Kidneys and Ureters: Unremarkable. Stomach and Bowel: Stomach, small bowel loops, and colon are unremarkable. Peritoneum: No abnormal intraperitoneal fluid. No free air. Ventral Wall: No hernia. Abdominal Nodes: No retroperitoneal or mesenteric adenopathy by size criteria. Vessels: Aorta and inferior vena cava are normal in size. There are scattered atheromatous calcifications throughout the aorta and iliac arteries bilaterally. PELVIS: Pelvic Organs: Unremarkable. Calcified fibroids are noted. Bladder: Unremarkable. Pelvic Nodes: No enlarged lymph nodes. Miscellaneous: No inguinal hernias are seen. Bones: Trabeculated appearance of the left iliac wing is redemonstrated and appears unchanged from the study dated September 05, 2021. No new suspicious bony lesions. IMPRESSION: 1. No finding to suggest tumor recurrence or metastasis. 2. No acute intra-abdominal findings. Dictated by: Judy Lopez M.D. on 08/27/2022 at 14:24 Approved by: Judy Lopez M.D. on 08/27/2022 at 14:31
[2022-08-27 10:23] LABS: Add Manual Diff / Slide Review NO; Basophils Absolute Auto 100 /uL (0-100); Basophils Percent Auto 1.1 % (0-2); Eosinophils Absolute Auto 200 /uL (0-450); Eosinophils Percent Auto 3.3 % (2-4); Hematocrit 37.1 % (36-46); Hemoglobin 12.5 g/dL (12.0-16.0); Lymphocytes Absolute Auto 1600 /uL (1100-4500); Mean Corpuscular HGB Conc 33.8 % (30-36); Mean Corpuscular Hemoglobin 29.8 PG (26-34); Mean Corpuscular Volume 88.4 fL (80-100); Monocytes Absolute Auto 300 /uL (0-900); Monocytes Percent Auto 5.5 % (3-14); Neutrophils Absolute Auto 4000 /uL (1500-7000); Neutrophils Percent Auto 64.1 % (50-75); Platelet Count 297 X10^3/uL (150-400); Red Cell Distribution Width 13.2 % (11.6-14.8); White Blood Cell Count 6.2 X10^3/uL (4.5-11.0)
[2022-08-27 10:45] LABS: Alanine Aminotransferase 19 IU/L (<35); Albumin 4.1 g/dL (3.5-5.0); Albumin Globulin Ratio 1.2 (1.0-2.8); Alkaline Phosphatase 69 U/L (38-126); Aspartate Aminotransferase 23 IU/L (14-36); BUN Creatinine Ratio 13.2 (6-22); Bilirubin Total 0.8 mg/dL (0.2-1.3); Blood Urea Nitrogen 9 mg/dL (7-17); Calcium 8.7 mg/dL (8.4-10.2); Carbon Dioxide 26 mmol/L (22-32); Chloride 100 mmol/L (98-107); Estimated Glomerular Filt Rate > 60 mL/min (>60); Globulin 3.4 g/dL (1.7-4.1); Glucose 92 mg/dL (80-110); HEMOLYSIS < 15 (0-50); Potassium 4.5 mmol/L (3.4-5.1); Sodium 133 mmol/L (137-145); Total Protein 7.5 g/dL (6.3-8.2)
[2022-08-27 11:15] LABS: Carcinoembryonic Antigen 1.1 ng/mL (0.1-3.0)
== END ==
PROVIDERS: PCP Family Medicine; Referring Provider Internal Medicine Hematology & Oncology; Visit Provider Internal Medicine Hematology & Oncology
DX: C18.9 Malignant neoplasm of colon, unspecified (principal)
CPT/HCPCS: 36415; 71260; 74177; 80053; 82378; 85025; Q9967

== ENCOUNTER → 2023-04-06 11:21 | Outpatient (CLI) | payer OTHER, MEDICAID, SELFPAY ==
[2021-09-06 04:29] VITALS: BMI 28.1
[2023-04-06 12:20] LABS: Add Manual Diff / Slide Review NO; Basophils Absolute Auto 100 /uL (0-100); Eosinophils Absolute Auto 300 /uL (0-450); Eosinophils Percent Auto 5.4 % (2-4); Hematocrit 40.2 % (36-46); Hemoglobin 13.6 g/dL (12.0-16.0); Lymphocytes Absolute Auto 1400 /uL (1100-4500); Lymphocytes Percent Auto 25.6 % (25-40); Mean Corpuscular HGB Conc 33.8 % (30-36); Mean Corpuscular Hemoglobin 30.2 PG (26-34); Mean Corpuscular Volume 89.4 fL (80-100); Monocytes Absolute Auto 300 /uL (0-900); Monocytes Percent Auto 5.9 % (3-14); Neutrophils Absolute Auto 3500 /uL (1500-7000); Neutrophils Percent Auto 62.1 % (50-75); Platelet Count 290 X10^3/uL (150-400); Red Cell Distribution Width 13.1 % (11.6-14.8); White Blood Cell Count 5.6 X10^3/uL (4.5-11.0)
[2023-04-06 12:52] LABS: Alanine Aminotransferase 15 IU/L (<35); Albumin 4.3 g/dL (3.5-5.0); Albumin Globulin Ratio 1.1 (1.0-2.8); Alkaline Phosphatase 82 U/L (38-126); Aspartate Aminotransferase 24 IU/L (14-36); BUN Creatinine Ratio 9.9 (6-22); Bilirubin Total 0.8 mg/dL (0.2-1.3); Blood Urea Nitrogen 8 mg/dL (7-17); Calcium 9.1 mg/dL (8.4-10.2); Carbon Dioxide 26 mmol/L (22-32); Chloride 98 mmol/L (98-107); Estimated Glomerular Filt Rate > 60 mL/min (>60); Globulin 3.8 g/dL (1.7-4.1); Glucose 93 mg/dL (80-110); HEMOLYSIS < 15 (0-50); Potassium 4.6 mmol/L (3.4-5.1); Sodium 131 mmol/L (137-145); Total Protein 8.1 g/dL (6.3-8.2)
[2023-04-06 13:21] LABS: Carcinoembryonic Antigen 1.1 ng/mL (0.1-3.0)
[2023-04-06 13:24] LABS: TSH w/ Reflex to FT4 1.39 uIU/mL (0.47-4.68)
[2023-04-06 16:33] LABS: Creatinine Urine Random 23.8 mg/dL
[2023-04-06 16:41] LABS: Microalbumin Urine Random < 0.6 mg/dL (0-1.6)
[2023-04-08 11:26] LABS: x Labcorp Estim. Avg Glu (eAG) 111 mg/dL (.); x Labcorp Hemoglobin A1c 5.5 % (4.8-5.6)
== END ==
PROVIDERS: Internal Medicine Hematology & Oncology; PCP Family Medicine; Referring Provider Family Medicine; Visit Provider Family Medicine
DX: C18.9 Malignant neoplasm of colon, unspecified (principal); I10 Essential (primary) hypertension; F41.9 Anxiety disorder, unspecified; F32.A Depression, unspecified; M81.0 Age-related osteoporosis without current pathological fracture; K22.70 Barrett's esophagus without dysplasia
CPT/HCPCS: 36415; 80053; 82043; 82378; 82570; 83036; 84443; 85025

== ENCOUNTER → 2023-09-19 11:29 | Outpatient (CLI) | payer OTHER, MEDICAID, SELFPAY ==
[2021-09-06 04:29] VITALS: BMI 28.1
[2023-09-19 12:34] LABS: BUN Creatinine Ratio 13.3 (6-22); Blood Urea Nitrogen 11 mg/dL (7-17); Calcium 8.8 mg/dL (8.4-10.2); Carbon Dioxide 26 mmol/L (22-32); Chloride 101 mmol/L (98-107); Estimated Glomerular Filt Rate > 60 mL/min (>60); Glucose 92 mg/dL (80-110); HEMOLYSIS < 15 (0-50); Potassium 4.6 mmol/L (3.4-5.1); Sodium 132 mmol/L (137-145)
== END ==
PROVIDERS: PCP Family Medicine; Referring Provider Family Medicine; Visit Provider Family Medicine
DX: I10 Essential (primary) hypertension (principal); K22.70 Barrett's esophagus without dysplasia; F41.9 Anxiety disorder, unspecified; F32.A Depression, unspecified
CPT/HCPCS: 36415; 80048

== ENCOUNTER → 2024-03-15 15:05 | Outpatient (CLI) | payer OTHER, MEDICAID, SELFPAY ==
[2021-09-06 04:29] VITALS: BMI 28.1
[2024-03-15 15:51] LABS: Influenza A - CEPHEID Flu A NEGATIVE (NEGATIVE); Influenza B - CEPHEID Flu B NEGATIVE (NEGATIVE); Respiratory Syncytial Virus Negative (Negative)
[2024-03-15 15:56] LABS: COVID-19 CEPHEID 4-PLEX PCR Negative (Negative)
== END ==
PROVIDERS: PCP Family Medicine; Visit Provider Physician Assistant Medical
DX: R05.1 Acute cough (principal)
CPT/HCPCS: 0241U

== ENCOUNTER → 2024-03-15 15:20 | Outpatient (CLI) | payer OTHER, MEDICAID, SELFPAY ==
[2021-09-06 04:29] VITALS: BMI 28.1
--- NOTE | 2024-03-15 15:21 | DI.RAD.S_ITS ---
PROCEDURE: XR CHEST 2V INDICATIONS: Cough TECHNIQUE: 2 views of the chest were acquired. COMPARISON: [facility], CR, XR CHEST 1V, 09/05/2021, 22:21. [facility], CR, XR CHEST 2V, 01/06/2021, 18:05. FINDINGS: Surgical changes and devices: Left axillary surgical clips. Lungs and pleura: Lungs are clear. No pleural effusions or pneumothorax. Mediastinum: Mediastinal contours are normal. Heart size is normal. Bones and chest wall: No suspicious bony abnormalities. Soft tissues appear unremarkable. IMPRESSION: No acute cardiopulmonary abnormality is seen. Dictated by: Rodolfo Angulo M.D. on 03/15/2024 at 15:45 Approved by: Rodolfo Angulo M.D. on 03/15/2024 at 15:45
== END ==
PROVIDERS: PCP Family Medicine; Referring Provider Physician Assistant Medical; Visit Provider Physician Assistant Medical
DX: R05.9 Cough, unspecified (principal)
CPT/HCPCS: 0241U; 71046

== ENCOUNTER → 2024-05-21 14:56 | Outpatient (CLI) | payer OTHER, MEDICAID, SELFPAY ==
[2021-09-06 04:29] VITALS: BMI 28.1
--- NOTE | 2024-05-21 14:59 | DI.RAD.S_ITS ---
PROCEDURE: XR DEXA AXIAL SKELETON INDICATIONS: osteoporosis COMPARISON: [facility], , XR DEXA AXIAL SKELETON, 03/31/2020, 13:13. FINDINGS: Lumbar Spine: Bone mineral density 0.830 (previously 0.875) g/cm2, T score -2.0 (previously -2.6). Left Femoral Neck: Bone mineral density 0.596 (previously 0.763) g/cm2, T score -2.3 (previously -2.0). Left Hip: Bone mineral density 0.683 (previously 0.760) g/cm2, T score -2.1 (previously -2.0). Fracture Risk Calculation (when applicable): 10-year fracture risk of a major osteoporotic fracture 16 percent and of a hip fracture 5.4 percent. (T score greater or equal to -1.0 to: NORMAL) (T score from -1.1 to -2.4: OSTEOPENIA) (T score less than or equal to -2.5: OSTEOPOROSIS) IMPRESSION: Osteopenia--- recommend repeat DEXA in 2-3 years for reassessment. Follow-up guidelines as follows: Osteoporosis: Consider a repeat DEXA and Vertebral Fracture Assessment (VFA) exam in 2 years or sooner if medically necessary, to reassess this patient's status. Osteopenia: Consider a repeat DEXA in 2-3 years to reassess this patient's status, or if there is a new clinical indication. Normal: Consider a repeat DEXA in 5 years or sooner, or if there is a new clinical indication. All treatment decisions require clinical judgment and consideration of individual patient factors, including patient preferences, comorbidities, previous drug use, risk factors not captured in the FRAX model (e.g., frailty, falls, vitamin D deficiency, increased bone turnover, interval significant decline in bone density ) and possible under- or over-estimation of fracture risk by FRAX. In addition, the NOF Guide recommends that FDA-approved medical therapies be considered in postmenopausal women and men age >= 50 years with a: * Hip or vertebral (clinical or morphometric) fracture * T-score of <=-2.5 at the spine or hip * Ten-year fracture probability by FRAX of >= 3% for hip fracture or >=20% for major osteoporotic fracture. Dictated by: Keenan Ash M.D. on 05/21/2024 at 20:32 Approved by: Keenan Ash M.D. on 05/21/2024 at 20:36
== END ==
PROVIDERS: PCP Family Medicine; Referring Provider Family Medicine; Visit Provider Family Medicine
DX: M81.0 Age-related osteoporosis without current pathological fracture
CPT/HCPCS: 77080

== ENCOUNTER → 2024-06-29 15:32 | Outpatient (CLI) | payer OTHER, MEDICAID, SELFPAY ==
[2021-09-06 04:29] VITALS: BMI 28.1
[2024-06-29 17:23] LABS: Cholesterol 172 mg/dL (140-199); HDL Cholesterol 51 mg/dL (40-60); LDL Cholesterol Calculated 101 mg/dL (<100); Triglycerides 98 mg/dL (35-150)
== END ==
PROVIDERS: PCP Family Medicine; Referring Provider Family Medicine; Visit Provider Family Medicine
DX: Z13.6 Encounter for screening for cardiovascular disorders (principal); Z82.49 Family history of ischemic heart disease and other diseases of the circulatory system
CPT/HCPCS: 80061

== ENCOUNTER → 2024-07-19 15:01 | Outpatient (CLI) | payer OTHER, MEDICAID, SELFPAY ==
[2021-09-06 04:29] VITALS: BMI 28.1
--- NOTE | 2024-07-19 15:03 | DI.RAD.S_ITS ---
PROCEDURE: XR FOOT LT MIN 3V INDICATIONS: Left ankle strain TECHNIQUE: 3 views of the foot were acquired. COMPARISON: None. FINDINGS: Bones: No fractures or dislocations. No suspicious bony lesions. Mild hallux valgus metatarsus prima varus alignment and medial bunion. Mild 1st MTP and diffuse interphalangeal joint space narrowing with periarticular osteophyte formation. Mild calcaneal enthesopathy. Soft tissues: No tibiotalar joint effusion. Achilles tendon appears normal. IMPRESSION: 1. Mild hallux valgus alignment and medial bunion. 2. Mild 1st MTP and diffuse interphalangeal joint degeneration. 3. Mild calcaneal enthesopathy. Dictated by: Robert Soto [facility] Interpreted: Patty Ngo MD on 07/21/2024 at 12:06 Transcribed by: CRICKET on 07/21/2024 at 12:09 Approved by: Patty Ngo M.D. on 07/23/2024 at 7:43
--- NOTE | 2024-07-19 15:03 | DI.RAD.S_ITS ---
PROCEDURE: XR ANKLE LT MIN 3V INDICATIONS: Left ankle strain TECHNIQUE: 3 views of the ankle were acquired. COMPARISON: [facility], CR, XR FOOT LT MIN 3V, 07/19/2024, 15:20. FINDINGS: Bones: No fractures or dislocations. Ankle mortise is normally aligned. No suspicious bony lesions. Mild calcaneal enthesopathy. Soft tissues: No tibiotalar joint effusion. Achilles tendon appears normal. Diffuse soft tissue swelling and mottled appearance. IMPRESSION: 1. No acute bony abnormality or significant effusion. 2. Mild diffuse soft tissue swelling with mottled appearance which may be related to edema; however cellulitis cannot be excluded and direct visualization recommended. Dictated by: Robert Soto [facility] Interpreted: Patty Ngo MD on 07/21/2024 at 12:05 Approved by: Patty Ngo M.D. on 07/23/2024 at 7:44
== END ==
PROVIDERS: PCP Family Medicine; Referring Provider Family Medicine; Visit Provider Nurse Practitioner Family
DX: S96.912A Strain of unspecified muscle and tendon at ankle and foot level, left foot, initial encounter (principal); M20.12 Hallux valgus (acquired), left foot; M21.612 Bunion of left foot; M77.32 Calcaneal spur, left foot; M19.072 Primary osteoarthritis, left ankle and foot; X58.XXXA Exposure to other specified factors, initial encounter
CPT/HCPCS: 73610; 73630

== ENCOUNTER → 2024-09-27 11:25 | Outpatient (CLI) | payer OTHER, MEDICAID, SELFPAY ==
[2021-09-06 04:29] VITALS: BMI 28.1
[2024-09-27 12:34] LABS: Add Manual Diff / Slide Review NO; Hematocrit 36.5 % (36-46); Hemoglobin 12.5 g/dL (12.0-16.0); Lymphocytes Absolute Auto 1600 /uL (1100-4500); Mean Corpuscular HGB Conc 34.3 % (30-36); Mean Corpuscular Hemoglobin 30.7 PG (26-34); Mean Corpuscular Volume 89.7 fL (80-100); Platelet Count 345 X10^3/uL (150-400)
[2024-09-27 12:58] LABS: HEMOLYSIS < 15 (0-50); Iron 71 ug/dL (37-170)
[2024-09-27 13:05] LABS: Alanine Aminotransferase 14 IU/L (<35); Albumin 4.1 g/dL (3.5-5.0); Albumin Globulin Ratio 1.2 (1.0-2.8); Alkaline Phosphatase 78 U/L (38-126); Blood Urea Nitrogen 9 mg/dL (7-17); Calcium 9.3 mg/dL (8.4-10.2); Carbon Dioxide 24 mmol/L (22-32); Chloride 98 mmol/L (98-107); Estimated Glomerular Filt Rate > 60 mL/min (>60); Globulin 3.3 g/dL (1.7-4.1); Glucose 92 mg/dL (70-99); HEMOLYSIS < 15 (0-50); Potassium 4.7 mmol/L (3.4-5.1); Sodium 130 mmol/L (137-145); Total Protein 7.4 g/dL (6.3-8.2)
[2024-09-27 13:10] LABS: Transferrin 226 mg/dL (206-381)
[2024-09-27 13:11] LABS: Percent Iron Saturation 25 % (15-50); Total Iron Binding Capacity 287 ug/dL (265-497)
[2024-09-27 13:30] LABS: TSH w/ Reflex to FT4 1.52 uIU/mL (0.47-4.68)
[2024-09-27 13:38] LABS: Ferritin 42 ng/mL (11-264)
== END ==
PROVIDERS: PCP Family Medicine; Referring Provider Family Medicine; Visit Provider Family Medicine
DX: R61 Generalized hyperhidrosis (principal); C18.9 Malignant neoplasm of colon, unspecified; R53.83 Other fatigue
CPT/HCPCS: 36415; 80053; 82728; 83540; 83550; 84443; 85025

== ENCOUNTER → 2024-12-28 13:52 | Outpatient (CLI) | payer OTHER, MEDICAID, SELFPAY ==
[2021-09-06 04:29] VITALS: BMI 28.1
[2024-12-28 14:47] LABS: Add Manual Diff / Slide Review NO; Hematocrit 35.8 % (36-46); Hemoglobin 12.2 g/dL (12.0-16.0); Lymphocytes Absolute Auto 1900 /uL (1100-4500); Mean Corpuscular HGB Conc 34.0 % (30-36); Mean Corpuscular Hemoglobin 30.1 PG (26-34); Mean Corpuscular Volume 88.5 fL (80-100); Platelet Count 322 X10^3/uL (150-400)
[2024-12-28 14:59] LABS: Hemoglobin A1C% w Est Avg Glu 5.3 % (4.0-6.0)
[2024-12-28 15:40] LABS: TSH w/ Reflex to FT4 0.96 uIU/mL (0.47-4.68)
[2024-12-31 13:36] LABS: Albumin 3.7 g/dL (2.9-4.4); Alpha-1-Globulin 0.2 g/dL (0.0-0.4); Alpha-2-Globulin 0.6 g/dL (0.4-1.0); Gamma Globulin 1.4 g/dL (0.4-1.8)
[2024-12-31 15:12] LABS: Deamidated Gliadin Ab IgA 4 units (0-19); Deamidated Gliadin Ab IgG 2 units (0-19); Immunoglobulin A,Qn 276 mg/dL (64-422)
[2024-12-31 20:38] LABS: QuantiFERON Mitogen Value >10.00 IU/mL (.); QuantiFERON Nil Value 0.46 IU/mL (.); QuantiFERON TB Gold Plus Negative (Negative); QuantiFERON TB1 Ag Value 0.25 IU/mL (.); QuantiFERON TB2 Ag Value 0.26 IU/mL (.)
== END ==
PROVIDERS: PCP Family Medicine; Referring Provider Family Medicine; Visit Provider Family Medicine
DX: R23.2 Flushing (principal); R61 Generalized hyperhidrosis; R53.83 Other fatigue; R19.7 Diarrhea, unspecified
CPT/HCPCS: 36415; 82784; 83036; 83516; 84155; 84165; 84443; 85025; 86480